=== PATIENT | male | born 1945 | race Hispanic/Latino ===

== ENCOUNTER 2018-01-03 05:32 | Emergency (ER) | payer OTHER ==
--- OUTSIDE RECORDS SUMMARY | 2018-01-03 05:34 | XMS REPORT | Clinical Summary ---
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
--- OUTSIDE RECORDS SUMMARY | 2018-01-03 05:35 | XMS REPORT ---
:1945 Author Organization [facility] Address [address] [place] [address] [address] Care Team Providers Name Role Phone URSULA KELLY Unavailable Unavailable ALEJANDRO MEDINA Unavailable Unavailable Problems This patient has no known problems. Allergies, Adverse Reactions, Alerts This patient has no known allergies or adverse reactions. Medications This patient has no known medications. Results Test Description Test Time Test Comments Text Results Atomic Results Result Comments TISSUE 2016-08-11 Surgical Pathology Report Case: [id number] EXAM 18:34:00 Catalino briones Provider: Ursula Kelly MD Ordering Provider: Ursula Kelly MD Ordering Location: [facility] PERIOPERATIVE Collected: 07/28/2016 0906 SERVICES Pathologist: Janiya Hayes MD Received: 07/28/2016 1137 Specimens: A) - Omentum B ) - Small Bowel, NOS, with right colon and sigmoid colon C) - Rectal, Rectal stump D) - Soft Tissue , Other, Proximal anastomotic colon donut E) - Soft Tissue, Other, Distal anastomotic colon donut. A. OMENTUM, EXCISION: - NEGATIVE FOR MALIGNANCYB. SMALL BOWEL, RIGHT COLON AND SIGMOID COLON, RESECTION: - INVASIVE ADENOCARCINOMA, MODERATELY DIFFERENTIATED, 6 CM IN GREATEST DIMENSION, INVADING THROUGH CECUM WALL INTO TERMINAL ILEUM WALL - SURGICAL RESECTION MARGINS, NEGATIVE FOR TUMOR - METASTATIC ADENOCARCINOMA TO TWO OUT OF TWENTY THREE LYMPH NODES (2/23) - NO LOSS OF NUCLEAR EXPRESSION OF MMR PROTEINS (SEE COMMENT) - MULTIPLE TUBULAR ADENOMAS - AJCC CLASSIFICATION (7TH EDITION) p T4b, N1b, Mx (SEE SYNOPTIC REPORT)C. RECTAL STUMP, EXCISION: - COLONIC MUCOSA, NEGATIVE FOR TUMORD. PROXIMAL ANASTOMOTIC COLON DONUT, EXCISION: - COLONIC MUCOSA, NEGATIVE FOR TUMORE. DISTAL ANASTOMOTIC COLON DONUT, EXCISION: - COLONIC MUCOSA , NEGATIVE FOR TUMOR Signing Pathologist Direct Phone Line: [phone]. The tumor invades through the colonic wall into adjacent small bowel wall. The attached sigmoid colon is not directly invaded by the tumor.IHC testing for all four MMR proteins was performed on selected block B6 with appropriate controls.RESULTSMLH1: Intact nuclear expressionMSH2: Intact nuclear expressionMSH6: Intact nuclear expressionPMS2: Intact nuclear expressionIHC InterpretationNo loss of nuclear expression of MMR proteins : low probability of microsatellite instability-high (MSI-H)# #There are exceptions to the above IHC interpretations. These results should not be considered in isolation, and clinical correlation with genetic counseling is recommended to assess the need for germline testing.Immunohistochemistry disclaimerThe following special studies were performed on this case and the interpretation is incorporated in the diagnostic report above: The immunohistochemistry test was developed and its performance characteristics determined by [facility], Pathology Laboratory. It has not been cleared or approved by the U.S. Food and Drug Administration. The FDA has determined that such clearance or approval is not necessary. The test is used for clinical purposes. It should not be regarded as investigational or for research. This laboratory is certified under the Clinical Laboratory Improvement Amendments of 1988 (CLIA-88) as qualified to perform high complexity clinical laboratory testing.IDC: Radames Cordero M.D.COLON AND RECTUM: Resection, Including Transanal Disk Excision of Rectal NeoplasmsColon ResSPECIMEN Specimen: Terminal ileum Specimen: Cecum Specimen: Ascending colon Specimen: Sigmoid colon Procedure: Right hemicolectomyTUMOR Primary Tumor Site: Cecum Histologic Type: Adenocarcinoma Histologic Grade: Low-grade (well differentiated to moderately differentiated) Tumor Size: Greatest dimension (cm): 6 Additional Dimension (cm): 6 Additional Dimension (cm): 4.5 Tumor Deposits: Not identified Tumor Extent Site(s) of Direct Extent of Tumor: Cecum Microscopic Tumor Extension: Tumor penetrates to the surface of the visceral peritoneum (serosa) AND directly invades adjacent structures (specify): small bowel Macroscopic Tumor Perforation: Not Identified Accessory Tumor Findings Lymph-Vascular Invasion: Present Perineural Invasion: Not identified Treatment Effect (applicable to carcinomas treated with neoadjuvant therapy): No prior treatmentMARGINS Uninvolved Margins: All margins uninvolved by invasive carcinomaLYMPH NODES Number of Lymph Nodes Examined: Specify number: 23 Number of Lymph Nodes Involved: Specify number: 2STAGE (pTNM, AJCC 7th ed.) Primary Tumor (pT): pT4b: Tumor directly invades or is adherent to other organs or structures Regional Lymph Nodes (pN): pN1b: Metastasis in 2 to 3 regional lymph nodes Distant Metastasis (pM): Not applicable - pM cannot be determined from the submitted specimen(s)ADDITIONAL FINDINGS Additional Pathologic Findings: Adenoma(s)41540, 37852, 80585 X 3, 27480 X 4Colon cancerA. Omentum; B. Right colon and sigmoid colon; C. Rectal stump; D. Proximal anastomotic colon donut; E. Distal anastomotic colon donutSpecimen is received in five containers of formalin all labeled with the patient's information.Specimen A labeled "omentum" consists of a segment of omentum measuring 12.5 x 7 x 1 cm. Grossly, no suspicious areas are seen. Facilities Supervisor sections submitted A1 to A4, two sections in each cassette. Specimen B designated "small bowel right colon and sigmoid colon" consists of right hemicolectomy measuring 32 cm in length x 8 cm in circumference with small bowel loop and adhesed upon itself measuring 18 cm in length x 4 cm in circumference and a separate segment of colon with a fat attached to the serosa of the small bowel measuring 7.5 cm in length x 8 cm in circumference. The right colon is opened to reveal a large cecal mass measuring 6 x 6 x 4.5 cm located 27 cm from the distal margin and 20 cm from the proximal margin. Ileocecal valve grossly appears to be involved with lynn hemorrhagic nodular mass measuring 2.5 x 1 x 0.5 cm, located 1.5 cm from the cecal mass. Cross section of cecal mass shows deep invasion into the muscularis propria with invasion through the wall and into the attached terminal ileum. Where it is attached to the small bowel wall is approximately 5 cm from the proximal margin. The attached sigmoid colon is not grossly involved with tumor. Remainder of the right colon has multiple lynn polyps measuring up to 1.2 cm, grossly more than 4 cm from the mass. The appendix cannot be grossly identified. The fat is sectioned yielding 22 lynn-pink lymph nodes, some are grossly positive, the largest measuring up to 1.8 cm. Section code: B1, resection margin en face; B2, mesenteric margin, perpendicular section; B3 and B4, ileocecal valve; B5 and B6, ileum and tumor; B7 and B8, tumor and colon; B9 and B10, tumor with attached soft tissue and fat; B11 through B15, all smaller polyps of right colon bisected in each cassette; B16, margins of separate attached colon; B17, random section of attached colon; B18, one lymph node; B19, one lymph node; B20, one lymph node bisected; B21, one lymph node bisected; B22, four lymph nodes; B23, five lymph nodes; B24, five lymph nodes; B25, four lymph nodes. Specimen C designated "rectal stump" consists of a segment of colon measuring 1.5 cm in length x 3.5 cm in diameter. No distinct abnormalities are seen. Section code: C1 , margin en face; C2 and C3, area of stump.Specimen D labeled "proximal anastomotic colon" consists of a lynn hemorrhagic colon donut measuring 2 x 1.5 x 0.8 cm. The specimen is sectioned, submitted entirely D1. [place] E labeled "distal anastomotic donut" consists of a lynn hemorrhagic colon donut measuring 2 x 1.5 x 0.5 cm. The specimen is sectioned and submitted entirely E. CG/plPerformed. POCT-GLUCOSE METER 2016-08-07 08:00:00 Test Item Value Reference Range Comments POC-GLUCOSE METER (BEAKER) (test 124 mg/dL 70-110 TESTED AT [address] wpam=2797) [facility] [address] POCT-GLUCOSE [id number] 05:48:00 Test Item Value Reference Range Comments POC-GLUCOSE METER ([employer] Consult[employer] GroupAKER) 115 mg/dL 70-110 TESTED AT [address] (test tshq=4583) [facility] [address] [id number] 05:24:00 Test Item Value Reference Range Comments TRIGLYCERIDES (BEAKER) (test jiis=226) 213 mg/dL TRIGLYCERIDE REFERENCE RANGELow Risk <150Borderline Risk 150-199High Risk 200-499Very High Risk>=[id number] 05:24:00 Test Item Value Reference Range Comments MAGNESIUM (BEAKER) (test ixdv=011) 2.0 mg/dL 1.6-2.6 [id number] 05:24:00 Test Item Value Reference Range Comments PHOSPHORUS (BEAKER) (test waki=129) 3.6 mg/dL 2.3-4.7 BASIC METABOLIC [id number] 05:24:00 Test Item Value Reference Range Comments SODIUM (BEAKER) (test 138 meq/L 136-145 hgxu=390) POTASSIUM (BEAKER) (test 3.8 meq/L 3.5-5.1 jybm=142) CHLORIDE (BEAKER) (test 108 meq/L 98-107 opao=863) CO2 (BEAKER) (test 21 meq/L 22-29 ihrz=520) BLOOD UREA NITROGEN 10 mg/dL 7-21 (BEAKER) (test hvxe=602) CREATININE (BEAKER) (test 0.61 mg/dL 0.57-1.25 ykur=137) GLUCOSE RANDOM (BEAKER) 99 mg/dL 70-105 (test ehtr=375) CALCIUM (BEAKER) (test 8.3 mg/dL 8.4-10.2 dpfc=350) EGFR (BEAKER) (test 131 mL/min/1.73 sq m ESTIMATED GFR IS NOT xxci=6059) ACCURATE CREATININE CLEARANCE IN PREDICTING GLOMERULAR FILTRATION RATE. ESTIMATED GFR IS NOT APPLICABLE FOR DIALYSIS PATIENTS. POCT-GLUCOSE [id number] 00:14:00 Test Item Value Reference Range Comments POC-GLUCOSE METER (BEAKER) 107 mg/dL 70-110 TESTED AT [place] [id number] [facility] (test qitn=7798) [facility] [address] POCT-GLUCOSE [id number] 12:03:00 Test Item Value Reference Range Comments POC-GLUCOSE METER (BEAKER) 123 mg/dL 70-110 TESTED AT [address] (test xypa=0671) [facility] [address] POCT-GLUCOSE [id number] 06:52:00 Test Item Value Reference Range Comments POC-GLUCOSE METER (BEAKER) 115 mg/dL 70-110 TESTED AT [address] (test hhsf=3295) [place] [address] [id number] 05:30:00 Test Item Value Reference Range Comments TRIGLYCERIDES (BEAKER) (test sivi=038) 151 mg/dL TRIGLYCERIDE REFERENCE RANGELow Risk <150Borderline Risk 150-199High Risk 200-499Very High Risk>=[id number] 05:30:00 Test Item Value Reference Range Comments MAGNESIUM (BEAKER) (test izxj=841) 1.9 mg/dL 1.6-2.6 [id number] 05:30:00 Test Item Value Reference Range Comments PHOSPHORUS (BEAKER) (test jwwa=796) 3.9 mg/dL 2.3-4.7 BASIC METABOLIC [id number] 05:30:00 Test Item Value Reference Range Comments SODIUM (BEAKER) (test 138 meq/L 136-145 irhx=260) POTASSIUM (BEAKER) (test 4.0 meq/L 3.5-5.1 kkyl=490) CHLORIDE (BEAKER) (test 109 meq/L 98-107 bsws=771) CO2 (BEAKER) (test 22 meq/L 22-29 jjob=508) BLOOD UREA NITROGEN 12 mg/dL 7-21 (BEAKER) (test opis=979) CREATININE (BEAKER) (test 0.55 mg/dL 0.57-1.25 xshd=190) GLUCOSE RANDOM (BEAKER) 105 mg/dL 70-105 (test ufwv=888) CALCIUM (BEAKER) (test 8.0 mg/dL 8.4-10.2 hmbf=066) EGFR (BEAKER) (test 148 mL/min/1.73 sq m ESTIMATED GFR IS NOT shtm=4306) ACCURATE CREATININE CLEARANCE IN PREDICTING GLOMERULAR FILTRATION RATE. ESTIMATED GFR IS NOT APPLICABLE FOR DIALYSIS PATIENTS. POCT-GLUCOSE [id number] 23:20:00 Test Item Value Reference Range Comments POC-GLUCOSE METER (BEAKER) 104 mg/dL 70-110 TESTED AT [address] (test kozx=9649) [place] [address] POCT-GLUCOSE [id number] 17:14:00 Test Item Value Reference Range Comments POC-GLUCOSE METER (BEAKER) 90 mg/dL 70-110 TESTED AT [address] (test izph=4911) [place] [address] POCT-GLUCOSE [id number] 11:54:00 Test Item Value Reference Range Comments POC-GLUCOSE METER (BEAKER) 106 mg/dL 70-[address] [facility] [address] [facility] (test sfvr=9662) [facility] [address] CBC W/PLT COUNT & AUTO [id number] 09:24:00 Test Item Value Reference Range Comments WHITE BLOOD CELL COUNT (BEAKER) (test rkxt=747) 4.6 K/ L 4.0-10.0 RED BLOOD CELL COUNT (BEAKER) (test izws=320) 3.49 M/ L 4.20-5.80 HEMOGLOBIN (BEAKER) (test tjgt=122) 11.7 GM/DL 13.0-16.8 HEMATOCRIT (BEAKER) (test aiuy=949) 35.5 % 40.0-50.0 MEAN CORPUSCULAR VOLUME (BEAKER) (test kaiq=858) 101.0 fL 82.0-98.0 MEAN CORPUSCULAR HEMOGLOBIN (BEAKER) (test 33.5 pg 27.0-33.0 bjyp=077) MEAN CORPUSCULAR HEMOGLOBIN CONC (BEAKER) (test 33.0 GM/DL 32.0-36.0 ugcj=784) RED CELL DISTRIBUTION WIDTH (BEAKER) (test 13.9 % 10.3-14.2 ytqi=072) PLATELET COUNT (BEAKER) (test yuui=844) 203 K/CU MM 150-430 MEAN PLATELET VOLUME (BEAKER) (test blxx=187) 7.3 fL 6.5-10.5 NUCLEATED RED BLOOD CELLS (BEAKER) (test 0 /100 WBC 0-0 rbqf=004) NEUTROPHILS RELATIVE PERCENT (BEAKER) (test 57 % ipfz=979) LYMPHOCYTES RELATIVE PERCENT (BEAKER) (test 28 % nhfy=173) MONOCYTES RELATIVE PERCENT (BEAKER) (test 8 % zmkx=729) EOSINOPHILS RELATIVE PERCENT (BEAKER) (test 7 % lhmi=819) BASOPHILS RELATIVE PERCENT (BEAKER) (test 0 % ygxy=696) NEUTROPHILS ABSOLUTE COUNT (BEAKER) (test 2.60 K/ L 1.80-8.00 siww=700) LYMPHOCYTES ABSOLUTE COUNT (BEAKER) (test 1.27 K/ L 1.48-4.50 qgzj=753) MONOCYTES ABSOLUTE COUNT (BEAKER) (test 0.38 K/ L 0.00-1.30 flrb=657) EOSINOPHILS ABSOLUTE COUNT (BEAKER) (test 0.30 K/ L 0.00-0.50 szip=488) BASOPHILS ABSOLUTE COUNT (BEAKER) (test 0.00 K/ L 0.00-0.20 mndg=539) [id number] 07:12:00 Test Item Value Reference Range Comments TRIGLYCERIDES (BEAKER) (test fchd=241) 108 mg/dL TRIGLYCERIDE REFERENCE RANGELow Risk <150Borderline Risk 150-199High Risk 200-499Very High Risk>=[id number] 07:12:00 Test Item Value Reference Range Comments MAGNESIUM (BEAKER) (test ceyb=776) 2.0 mg/dL 1.6-2.6 [id number] 07:12:00 Test Item Value Reference Range Comments PHOSPHORUS (BEAKER) (test nfwr=191) 3.4 mg/dL 2.3-4.7 BASIC METABOLIC [id number] 07:12:00 Test Item Value Reference Range Comments SODIUM (BEAKER) (test 139 meq/L 136-145 rwyu=507) POTASSIUM (BEAKER) (test 4.1 meq/L 3.5-5.1 umfk=435) CHLORIDE (BEAKER) (test 112 meq/L 98-107 zqic=105) CO2 (BEAKER) (test 19 meq/L 22-29 iusy=370) BLOOD UREA NITROGEN 9 mg/dL 7-21 (BEAKER) (test dyqn=943) CREATININE (BEAKER) (test 0.55 mg/dL 0.57-1.25 yfwt=624) GLUCOSE RANDOM (BEAKER) 105 mg/dL 70-105 (test beqz=555) CALCIUM (BEAKER) (test 7.9 mg/dL 8.4-10.2 hjpi=502) EGFR (BEAKER) (test 148 mL/min/1.73 sq m ESTIMATED GFR IS NOT lsmj=8355) ACCURATE CREATININE CLEARANCE IN PREDICTING GLOMERULAR FILTRATION RATE. ESTIMATED GFR IS NOT APPLICABLE FOR DIALYSIS PATIENTS. POCT-GLUCOSE [id number] 05:45:00 Test Item Value Reference Range Comments POC-GLUCOSE METER (BEAKER) 115 mg/dL 70-110 TESTED AT [address] (test pxar=4231) [facility] [address] POCT-GLUCOSE [id number] 23:28:00 Test Item Value Reference Range Comments POC-GLUCOSE METER (BEAKER) 124 mg/dL 70-110 TESTED AT [address] (test gjcs=6122) [facility] [address] POCT-GLUCOSE [id number] 16:34:00 Test Item Value Reference Range Comments POC-GLUCOSE METER (BEAKER) 127 mg/dL 70-110 TESTED AT [address] (test uwzk=4047) [facility] [address] POCT-GLUCOSE [id number] 11:04:00 Test Item Value Reference Range Comments POC-GLUCOSE METER (BEAKER) 146 mg/dL 70-110 TESTED AT [address] (test hgpq=8666) [facility] [address] POCT-GLUCOSE [id number] 05:28:00 Test Item Value Reference Range Comments POC-GLUCOSE METER (BEAKER) 130 mg/dL 70-110 TESTED AT [address] (test cecg=2137) [facility] [address] BASIC METABOLIC [id number] 04:56:00 Test Item Value Reference Range Comments SODIUM (BEAKER) (test 138 meq/L 136-145 ovrn=752) POTASSIUM (BEAKER) (test 3.7 meq/L 3.5-5.1 zngh=485) CHLORIDE (BEAKER) (test 110 meq/L 98-107 ljkf=823) CO2 (BEAKER) (test 18 meq/L 22-29 gxtd=644) BLOOD UREA NITROGEN 6 mg/dL 7-21 (BEAKER) (test hpfk=007) CREATININE (BEAKER) (test 0.58 mg/dL 0.57-1.25 ewah=354) GLUCOSE RANDOM (BEAKER) 116 mg/dL 70-105 (test arnm=730) CALCIUM (BEAKER) (test 7.5 mg/dL 8.4-10.2 atwh=488) EGFR (BEAKER) (test 139 mL/min/1.73 sq m ESTIMATED GFR IS NOT kpku=4694) ACCURATE CREATININE CLEARANCE IN PREDICTING GLOMERULAR FILTRATION RATE. ESTIMATED GFR IS NOT APPLICABLE FOR DIALYSIS PATIENTS. [id number] 04:52:00 Test Item Value Reference Range Comments TRIGLYCERIDES (BEAKER) (test rivj=520) 98 mg/dL TRIGLYCERIDE REFERENCE RANGELow Risk <150Borderline Risk 150-199High Risk 200-499Very High Risk>=[id number] 04:52:00 Test Item Value Reference Range Comments MAGNESIUM (BEAKER) (test kzsp=335) 1.9 mg/dL 1.6-2.6 [id number] 04:52:00 Test Item Value Reference Range Comments PHOSPHORUS (BEAKER) (test mzeq=046) 3.0 mg/dL 2.3-4.7 CBC W/PLT COUNT & AUTO [id number] 04:44:00 Test Item Value Reference Range Comments WHITE BLOOD CELL COUNT (BEAKER) (test udqa=669) 4.0 K/ L 4.0-10.0 RED BLOOD CELL COUNT (BEAKER) (test gzdd=416) 3.33 M/ L 4.20-5.80 HEMOGLOBIN (BEAKER) (test qsua=491) 11.3 GM/DL 13.0-16.8 HEMATOCRIT (BEAKER) (test swae=593) 33.8 % 40.0-50.0 MEAN CORPUSCULAR VOLUME (BEAKER) (test dzdc=628) 102.0 fL 82.0-98.0 MEAN CORPUSCULAR HEMOGLOBIN (BEAKER) (test 34.0 pg 27.0-33.0 mdoe=943) MEAN CORPUSCULAR HEMOGLOBIN CONC (BEAKER) (test 33.5 GM/DL 32.0-36.0 npzs=388) RED CELL DISTRIBUTION WIDTH (BEAKER) (test 14.7 % 10.3-14.2 yzfy=641) PLATELET COUNT (BEAKER) (test yltk=395) 215 K/CU MM 150-430 MEAN PLATELET VOLUME (BEAKER) (test lfef=399) 6.9 fL 6.5-10.5 NUCLEATED RED BLOOD CELLS (BEAKER) (test 0 /100 WBC 0-0 bqvj=356) NEUTROPHILS RELATIVE PERCENT (BEAKER) (test 65 % krkd=618) LYMPHOCYTES RELATIVE PERCENT (BEAKER) (test 21 % dhjp=139) MONOCYTES RELATIVE PERCENT (BEAKER) (test 10 % ipqa=626) EOSINOPHILS RELATIVE PERCENT (BEAKER) (test 4 % vorq=779) BASOPHILS RELATIVE PERCENT (BEAKER) (test 0 % ecxw=295) NEUTROPHILS ABSOLUTE COUNT (BEAKER) (test 2.56 K/ L 1.80-8.00 txuf=324) LYMPHOCYTES ABSOLUTE COUNT (BEAKER) (test 0.85 K/ L 1.48-4.50 mlqt=058) MONOCYTES ABSOLUTE COUNT (BEAKER) (test 0.39 K/ L 0.00-1.30 lhck=480) EOSINOPHILS ABSOLUTE COUNT (BEAKER) (test 0.14 K/ L 0.00-0.50 fyhm=144) BASOPHILS ABSOLUTE COUNT (BEAKER) (test 0.02 K/ L 0.00-0.20 lmqa=254) 0.00POCT-GLUCOSE [id number] 23:43:00 Test Item Value Reference Range Comments POC-GLUCOSE METER (BEAKER) 156 mg/dL 70-[address] [facility] [address] [facility] (test yvlo=4955) [facility] [address] CBC W/PLT COUNT & AUTO [id number] 08:12:00 Test Item Value Reference Range Comments WHITE BLOOD CELL COUNT (BEAKER) (test ihps=949) 3.6 K/ L 4.0-10.0 RED BLOOD CELL COUNT (BEAKER) (test wlbb=221) 3.62 M/ L 4.20-5.80 HEMOGLOBIN (BEAKER) (test uvlj=885) 11.9 GM/DL 13.0-16.8 HEMATOCRIT (BEAKER) (test rhbi=802) 36.0 % 40.0-50.0 MEAN CORPUSCULAR VOLUME (BEAKER) (test nqrp=335) 99.4 fL 82.0-98.0 MEAN CORPUSCULAR HEMOGLOBIN (BEAKER) (test 32.9 pg 27.0-33.0 tvps=926) MEAN CORPUSCULAR HEMOGLOBIN CONC (BEAKER) (test 33.1 GM/DL 32.0-36.0 murb=477) RED CELL DISTRIBUTION WIDTH (BEAKER) (test 13.5 % 10.3-14.2 enwr=393) PLATELET COUNT (BEAKER) (test uzvb=529) 241 K/CU MM 150-430 MEAN PLATELET VOLUME (BEAKER) (test qgaz=095) 6.9 fL 6.5-10.5 NUCLEATED RED BLOOD CELLS (BEAKER) (test 0 /100 WBC 0-0 bwfo=079) NEUTROPHILS RELATIVE PERCENT (BEAKER) (test 64 % wtmx=381) LYMPHOCYTES RELATIVE PERCENT (BEAKER) (test 22 % gafm=490) MONOCYTES RELATIVE PERCENT (BEAKER) (test 11 % ffpf=785) EOSINOPHILS RELATIVE PERCENT (BEAKER) (test 3 % olyx=923) BASOPHILS RELATIVE PERCENT (BEAKER) (test 1 % kqph=469) NEUTROPHILS ABSOLUTE COUNT (BEAKER) (test 2.29 K/ L 1.80-8.00 cnqq=341) LYMPHOCYTES ABSOLUTE COUNT (BEAKER) (test 0.80 K/ L 1.48-4.50 wuqc=947) MONOCYTES ABSOLUTE COUNT (BEAKER) (test 0.38 K/ L 0.00-1.30 iovv=692) EOSINOPHILS ABSOLUTE COUNT (BEAKER) (test 0.10 K/ L 0.00-0.50 iciy=493) BASOPHILS ABSOLUTE COUNT (BEAKER) (test 0.02 K/ L 0.00-0.20 duhm=892) 0.00BASIC METABOLIC [id number] 06:57:00 Test Item Value Reference Range Comments SODIUM (BEAKER) (test 135 meq/L 136-145 yueq=015) POTASSIUM (BEAKER) (test 3.9 meq/L 3.5-5.1 qain=116) CHLORIDE (BEAKER) (test 109 meq/L 98-107 wjpe=506) CO2 (BEAKER) (test 19 meq/L 22-29 jjqs=818) BLOOD UREA NITROGEN 4 mg/dL 7-21 (BEAKER) (test pggy=242) CREATININE (BEAKER) (test 0.59 mg/dL 0.57-1.25 beuh=411) GLUCOSE RANDOM (BEAKER) 114 mg/dL 70-105 (test oyrw=433) CALCIUM (BEAKER) (test 7.6 mg/dL 8.4-10.2 xqmz=398) EGFR (BEAKER) (test 137 mL/min/1.73 sq m ESTIMATED GFR IS NOT rumj=0351) ACCURATE CREATININE CLEARANCE IN PREDICTING GLOMERULAR FILTRATION RATE. ESTIMATED GFR IS NOT APPLICABLE FOR DIALYSIS PATIENTS. [id number] 06:53:00 Test Item Value Reference Range Comments PHOSPHORUS (BEAKER) (test cwig=170) 2.5 mg/dL 2.3-4.7 [id number] 06:53:00 Test Item Value Reference Range Comments MAGNESIUM (BEAKER) (test dusc=000) 1.8 mg/dL 1.6-2.6 [id number] 06:12:00 Test Item Value Reference Range Comments PHOSPHORUS (BEAKER) (test bnmv=706) 2.6 mg/dL 2.3-4.7 [id number] 06:12:00 Test Item Value Reference Range Comments MAGNESIUM (BEAKER) (test uhwy=652) 1.8 mg/dL 1.6-2.6 BASIC METABOLIC [id number] 04:05:00 Test Item Value Reference Range Comments SODIUM (BEAKER) (test 139 meq/L 136-145 zpba=183) POTASSIUM (BEAKER) (test 4.0 meq/L 3.5-5.1 eqjm=113) CHLORIDE (BEAKER) (test 111 meq/L 98-107 zdut=381) CO2 (BEAKER) (test 22 meq/L 22-29 zkwe=022) BLOOD UREA NITROGEN 6 mg/dL 7-21 (BEAKER) (test qfly=399) CREATININE (BEAKER) (test 0.62 mg/dL 0.57-1.25 cpbw=737) GLUCOSE RANDOM (BEAKER) 120 mg/dL 70-105 (test atfd=161) CALCIUM (BEAKER) (test 7.9 mg/dL 8.4-10.2 yoww=492) EGFR (BEAKER) (test 129 mL/min/1.73 sq m ESTIMATED GFR IS NOT grqt=8206) ACCURATE CREATININE CLEARANCE IN PREDICTING GLOMERULAR FILTRATION RATE. ESTIMATED GFR IS NOT APPLICABLE FOR DIALYSIS PATIENTS. POCT-GLUCOSE [id number] 18:23:00 Test Item Value Reference Range Comments POC-GLUCOSE METER (BEAKER) 138 mg/dL 70-[address] [facility] [address] [facility] (test jyln=4217) [facility] [address] [id number] 05:27:00 Test Item Value Reference Range Comments PHOSPHORUS (BEAKER) (test ehzi=316) 2.8 mg/dL 2.3-4.7 [id number] 05:27:00 Test Item Value Reference Range Comments MAGNESIUM (BEAKER) (test bzac=273) 1.9 mg/dL 1.6-2.6 BASIC METABOLIC [id number] 05:27:00 Test Item Value Reference Range Comments SODIUM (BEAKER) (test 139 meq/L 136-145 kjxr=860) POTASSIUM (BEAKER) (test 3.8 meq/L 3.5-5.1 bikr=086) CHLORIDE (BEAKER) (test 107 meq/L 98-107 yliy=311) CO2 (BEAKER) (test 22 meq/L 22-29 afmq=610) BLOOD UREA NITROGEN 3 mg/dL 7-21 (BEAKER) (test vmjb=326) CREATININE (BEAKER) (test 0.61 mg/dL 0.57-1.25 ueas=353) GLUCOSE RANDOM (BEAKER) 99 mg/dL 70-105 (test qofd=015) CALCIUM (BEAKER) (test 8.6 mg/dL 8.4-10.2 byty=138) EGFR (BEAKER) (test 131 mL/min/1.73 sq m ESTIMATED GFR IS NOT oyqa=9863) ACCURATE CREATININE CLEARANCE IN PREDICTING GLOMERULAR FILTRATION RATE. ESTIMATED GFR IS NOT APPLICABLE FOR DIALYSIS PATIENTS. [id number] 05:37:00 Test Item Value Reference Range Comments PHOSPHORUS (BEAKER) (test jofd=902) 2.2 mg/dL 2.3-4.7 [id number] 05:37:00 Test Item Value Reference Range Comments MAGNESIUM (BEAKER) (test boqz=163) 2.1 mg/dL 1.6-2.6 BASIC METABOLIC [id number] 05:37:00 Test Item Value Reference Range Comments SODIUM (BEAKER) (test 143 meq/L 136-145 dpiv=589) POTASSIUM (BEAKER) (test 3.6 meq/L 3.5-5.1 wqud=213) CHLORIDE (BEAKER) (test 111 meq/L 98-107 vzpi=058) CO2 (BEAKER) (test 22 meq/L 22-29 bqsd=232) BLOOD UREA NITROGEN 4 mg/dL 7-21 (BEAKER) (test kvmf=126) CREATININE (BEAKER) (test 0.68 mg/dL 0.57-1.25 nshg=337) GLUCOSE RANDOM (BEAKER) 108 mg/dL 70-105 (test snyh=912) CALCIUM (BEAKER) (test 8.8 mg/dL 8.4-10.2 slfs=094) EGFR (BEAKER) (test 116 mL/min/1.73 sq m ESTIMATED GFR IS NOT hugx=0128) ACCURATE CREATININE CLEARANCE IN PREDICTING GLOMERULAR FILTRATION RATE. ESTIMATED GFR IS NOT APPLICABLE FOR DIALYSIS PATIENTS. CBC (HEMOGRAM ONLY)2016-07-30 05:36:00 Test Item Value Reference Range Comments WHITE BLOOD CELL COUNT (BEAKER) (test tatp=192) 9.6 K/ L 4.0-10.0 RED BLOOD CELL COUNT (BEAKER) (test osfw=723) 3.94 M/ L 4.20-5.80 HEMOGLOBIN (BEAKER) (test qpja=725) 12.9 GM/DL 13.0-16.8 HEMATOCRIT (BEAKER) (test yczp=839) 39.4 % 40.0-50.0 MEAN CORPUSCULAR VOLUME (BEAKER) (test qlzw=687) 100.0 fL 82.0-98.0 MEAN CORPUSCULAR HEMOGLOBIN (BEAKER) (test 32.7 pg 27.0-33.0 bwkm=844) MEAN CORPUSCULAR HEMOGLOBIN CONC (BEAKER) (test 32.7 GM/DL 32.0-36.0 drxg=592) RED CELL DISTRIBUTION WIDTH (BEAKER) (test 13.9 % 10.3-14.2 zdnn=601) PLATELET COUNT (BEAKER) (test ffvc=543) 303 K/CU MM 150-430 MEAN PLATELET VOLUME (BEAKER) (test xcvx=222) 7.1 fL 6.5-10.5 NUCLEATED RED BLOOD CELLS (BEAKER) (test 0 /100 WBC 0-0 uqpf=313) 0.00CBC (HEMOGRAM ONLY)2016-07-29 07:39:00 Test Item Value Reference Range Comments WHITE BLOOD CELL COUNT (BEAKER) (test dlly=880) 10.1 K/ L 4.0-10.0 RED BLOOD CELL COUNT (BEAKER) (test mrxy=431) 3.67 M/ L 4.20-5.80 HEMOGLOBIN (BEAKER) (test cczs=136) 12.3 GM/DL 13.0-16.8 HEMATOCRIT (BEAKER) (test oiwp=379) 36.7 % 40.0-50.0 MEAN CORPUSCULAR VOLUME (BEAKER) (test ncfm=219) 100.0 fL 82.0-98.0 MEAN CORPUSCULAR HEMOGLOBIN (BEAKER) (test 33.7 pg 27.0-33.0 kdzm=314) MEAN CORPUSCULAR HEMOGLOBIN CONC (BEAKER) (test 33.6 GM/DL 32.0-36.0 equb=272) RED CELL DISTRIBUTION WIDTH (BEAKER) (test 13.5 % 10.3-14.2 ajlu=003) PLATELET COUNT (BEAKER) (test mxle=651) 251 K/CU MM 150-430 MEAN PLATELET VOLUME (BEAKER) (test pqva=512) 7.2 fL 6.5-10.5 NUCLEATED RED BLOOD CELLS (BEAKER) (test 0 /100 WBC 0-0 miyq=698) 0.00POCT-GLUCOSE [id number] 06:32:00 Test Item Value Reference Range Comments POC-GLUCOSE METER (BEAKER) 126 mg/dL 70-[address] [facility] [address] [facility] (test jihb=6574) [facility] [address] [id number] 06:01:00 Test Item Value Reference Range Comments PHOSPHORUS (BEAKER) (test byfd=515) 3.2 mg/dL 2.3-4.7 [id number] 06:01:00 Test Item Value Reference Range Comments MAGNESIUM (BEAKER) (test ncyj=083) 1.8 mg/dL 1.6-2.6 BASIC METABOLIC [id number] 06:01:00 Test Item Value Reference Range Comments SODIUM (BEAKER) (test 140 meq/L 136-145 fqzj=420) POTASSIUM (BEAKER) (test 4.2 meq/L 3.5-5.1 oaym=603) CHLORIDE (BEAKER) (test 111 meq/L 98-107 cjvv=289) CO2 (BEAKER) (test 18 meq/L 22-29 dmla=421) BLOOD UREA NITROGEN 5 mg/dL 7-21 (BEAKER) (test srdn=007) CREATININE (BEAKER) (test 0.72 mg/dL 0.57-1.25 wgoc=726) GLUCOSE RANDOM (BEAKER) 119 mg/dL 70-105 (test afpu=544) CALCIUM (BEAKER) (test 8.3 mg/dL 8.4-10.2 xsen=153) EGFR (BEAKER) (test 109 mL/min/1.73 sq m ESTIMATED GFR IS NOT murx=9690) ACCURATE CREATININE CLEARANCE IN PREDICTING GLOMERULAR FILTRATION RATE. ESTIMATED GFR IS NOT APPLICABLE FOR DIALYSIS PATIENTS. POCT-GLUCOSE [id number] 00:44:00 Test Item Value Reference Range Comments POC-GLUCOSE METER (BEAKER) 125 mg/dL 70-[address] [facility] [address] [facility] (test kdjl=1211) [facility] [address] BASIC METABOLIC [id number] 14:33:00 Test Item Value Reference Range Comments SODIUM (BEAKER) (test 140 meq/L 136-145 emht=889) POTASSIUM (BEAKER) (test 4.7 meq/L 3.5-5.1 cfau=969) CHLORIDE (BEAKER) (test 115 meq/L 98-107 jnba=738) CO2 (BEAKER) (test 18 meq/L 22-29 wcbe=866) BLOOD UREA NITROGEN 5 mg/dL 7-21 (BEAKER) (test vgeg=908) CREATININE (BEAKER) (test 0.97 mg/dL 0.57-1.25 fyqa=767) GLUCOSE RANDOM (BEAKER) 129 mg/dL 70-105 (test idaq=942) CALCIUM (BEAKER) (test 7.4 mg/dL 8.4-10.2 ajwj=964) EGFR (BEAKER) (test 77 mL/min/1.73 sq m ESTIMATED GFR IS NOT bskp=8301) ACCURATE CREATININE CLEARANCE IN PREDICTING GLOMERULAR FILTRATION RATE. ESTIMATED GFR IS NOT APPLICABLE FOR DIALYSIS PATIENTS. CBC (HEMOGRAM ONLY)2016-07-28 14:20:00 Test Item Value Reference Range Comments WHITE BLOOD CELL COUNT (BEAKER) (test oipi=130) 7.7 K/ L 4.0-10.0 RED BLOOD CELL COUNT (BEAKER) (test wwhi=957) 3.34 M/ L 4.20-5.80 HEMOGLOBIN (BEAKER) (test xnco=319) 11.4 GM/DL 13.0-16.8 HEMATOCRIT (BEAKER) (test gzle=174) 33.5 % 40.0-50.0 MEAN CORPUSCULAR VOLUME (BEAKER) (test neuv=735) 100.0 fL 82.0-98.0 MEAN CORPUSCULAR HEMOGLOBIN (BEAKER) (test 34.1 pg 27.0-33.0 waln=372) MEAN CORPUSCULAR HEMOGLOBIN CONC (BEAKER) (test 33.9 GM/DL 32.0-36.0 niyq=810) RED CELL DISTRIBUTION WIDTH (BEAKER) (test 13.4 % 10.3-14.2 jyjj=602) PLATELET COUNT (BEAKER) (test aybj=311) 208 K/CU MM 150-430 MEAN PLATELET VOLUME (BEAKER) (test kdzq=134) 6.7 fL 6.5-10.5 NUCLEATED RED BLOOD CELLS (BEAKER) (test 0 /100 WBC 0-0 rsed=997) 0.00CALCIUM, [id number] 11:42:00 Test Item Value Reference Range Comments CALCIUM IONIZED (BEAKER) (test hzua=564) 1.02 mmol/L 1.12-1.27 PH, BLOOD (BEAKER) (test xvnm=6748) 7.30 BLOOD GAS, [id number] 11:41:00 Test Item Value Reference Range Comments PH ARTERIAL (BEAKER) (test ixcl=064) 7.30 7.35-7.45 PCO2 ARTERIAL (BEAKER) (test kyev=256) 38 mmHg 35-45 PO2 ARTERIAL (BEAKER) (test rxmo=480) 138 mmHg 80-90 O2 SATURATION ARTERIAL (BEAKER) (test hecr=342) 98.7 % 96.0-97.0 HCO3 ARTERIAL (BEAKER) (test tvio=583) 19 mmol/L 21-29 BASE EXCESS ARTERIAL (BEAKER) (test mwqh=449) -7.6 mmol/L -2.0-3.0 PATIENT TEMPERATURE (BEAKER) (test yfjk=8104) 35.0 C FIO2 (BEAKER) (test lykj=0881) 50.0 % GLUCOSE-STAT [id number] 11:41:00 Test Item Value Reference Range Comments GLUCOSE RANDOM (BEAKER) (test wgzk=949) 127 mg/dL 70-110 HEMOGLOBIN-STAT [id number] 11:41:00 Test Item Value Reference Range Comments HEMOGLOBIN (BEAKER) (test zfgz=900) 10.8 g/dL 13.0-16.8 HEMATOCRIT-STAT [id number] 11:41:00 Test Item Value Reference Range Comments HEMATOCRIT (BEAKER) (test otxv=811) 32.0 % 40.0-50.0 SODIUM NA-STAT [id number] 11:40:00 Test Item Value Reference Range Comments SODIUM (BEAKER) (test bzdh=041) 139 meq/L 135-148 POTASSIUM-STAT [id number] 11:40:00 Test Item Value Reference Range Comments POTASSIUM (BEAKER) (test dnas=977) 3.8 meq/L 3.6-5.5 CALCIUM, [id number] 09:40:00 Test Item Value Reference Range Comments CALCIUM IONIZED (BEAKER) (test gdyj=630) 1.03 mmol/L 1.12-1.27 PH, BLOOD (BEAKER) (test epgk=8508) 7.29 SODIUM NA-STAT [id number] 09:31:00 Test Item Value Reference Range Comments SODIUM (BEAKER) (test qclt=051) 139 meq/L 135-148 BLOOD GAS, [id number] 09:31:00 Test Item Value Reference Range Comments PH ARTERIAL (BEAKER) (test srva=752) 7.29 7.35-7.45 PCO2 ARTERIAL (BEAKER) (test irzm=316) 41 mmHg 35-45 PO2 ARTERIAL (BEAKER) (test mlmq=332) 333 mmHg 80-90 O2 SATURATION ARTERIAL (BEAKER) (test twrm=848) 99.7 % 96.0-97.0 HCO3 ARTERIAL (BEAKER) (test xifc=680) 19 mmol/L 21-29 BASE EXCESS ARTERIAL (BEAKER) (test zbjl=793) -6.9 mmol/L -2.0-3.0 PATIENT TEMPERATURE (BEAKER) (test dlqk=3399) 37.0 C FIO2 (BEAKER) (test vrap=2631) 21.0 % GLUCOSE-STAT [id number] 09:31:00 Test Item Value Reference Range Comments GLUCOSE RANDOM (BEAKER) (test otzy=952) 188 mg/dL 70-110 POTASSIUM-STAT [id number] 09:31:00 Test Item Value Reference Range Comments POTASSIUM (BEAKER) (test sivr=583) 2.8 meq/L 3.6-5.5 HGB/HCT (H&H) - STAT [id number] 09:31:00 Test Item Value Reference Range Comments HEMOGLOBIN (BEAKER) (test bosi=438) 13.0 g/dL 13.0-16.8 HEMATOCRIT (BEAKER) (test vgba=261) 38.0 % 40.0-50.0 [id number] 13:18:00 Test Item Value Reference Range Comments SODIUM (BEAKER) (test dbgq=774) 142 meq/L 136-145 POTASSIUM (BEAKER) (test wztn=292) 4.1 meq/L 3.5-5.1 CHLORIDE (BEAKER) (test wjxs=187) 107 meq/L 98-107 CO2 (BEAKER) (test gwza=249) 26 meq/L 22-29 BUN AND [id number] 13:04:00 Test Item Value Reference Range Comments BLOOD UREA NITROGEN 6 mg/dL 7-21 (BEAKER) (test vqvx=660) CREATININE (BEAKER) (test 0.74 mg/dL 0.57-1.25 zkvn=188) EGFR (BEAKER) (test 105 mL/min/1.73 sq m ESTIMATED GFR IS NOT tahg=2613) ACCURATE CREATININE CLEARANCE IN PREDICTING GLOMERULAR FILTRATION RATE. ESTIMATED GFR IS NOT APPLICABLE FOR DIALYSIS PATIENTS. [id number] 12:55:00 Test Item Value Reference Range Comments HEMOGLOBIN (BEAKER) (test oeog=615) 14.9 GM/DL 13.0-16.8 PLATELET [id number] 12:55:00 Test Item Value Reference Range Comments PLATELET COUNT (BEAKER) (test gaap=307) 269 K/CU MM 150-430 CARCINOEMBRYONIC ANTIGEN (CEA)2016-07-01 13:05:00 Test Item Value Reference Range Comments CARCINOEMBRYONIC ANTIGEN (BEAKER) (test rsgn=071) 6.7 ng/mL 0.0-5.0 BASIC METABOLIC [id number] 05:12:00 Test Item Value Reference Range Comments SODIUM (BEAKER) (test 143 meq/L 136-145 zuyf=596) POTASSIUM (BEAKER) (test 3.6 meq/L 3.5-5.1 Specimen slightly npfe=179) hemolyzed CHLORIDE (BEAKER) (test 115 meq/L 98-107 nrpt=936) CO2 (BEAKER) (test 19 meq/L 22-29 raft=750) BLOOD UREA NITROGEN 5 mg/dL 7-21 (BEAKER) (test msvy=863) CREATININE (BEAKER) (test 0.60 mg/dL 0.57-1.25 Specimen slightly sdox=643) hemolyzed GLUCOSE RANDOM (BEAKER) 89 mg/dL 70-105 (test gehs=592) CALCIUM (BEAKER) (test 8.1 mg/dL 8.4-10.2 mxck=097) EGFR (BEAKER) (test 134 mL/min/1.73 sq m ESTIMATED GFR IS NOT tilc=1723) ACCURATE CREATININE CLEARANCE IN PREDICTING GLOMERULAR FILTRATION RATE. ESTIMATED GFR IS NOT APPLICABLE FOR DIALYSIS PATIENTS. HEPATIC FUNCTION [id number] 05:12:00 Test Item Value Reference Range Comments TOTAL PROTEIN (BEAKER) (test 5.8 gm/dL 6.0-8.3 Specimen slightly hemolyzed obho=648) ALBUMIN (BEAKER) (test 3.0 g/dL 3.5-5.0 Specimen slightly hemolyzed mqwn=3203) BILIRUBIN TOTAL (BEAKER) (test 0.4 mg/dL 0.2-1.2 Specimen slightly hemolyzed dcfs=349) BILIRUBIN DIRECT (BEAKER) (test 0.2 mg/dL 0.1-0.5 Specimen slightly hemolyzed kxjq=773) ALKALINE PHOSPHATASE (BEAKER) 233 U/L 40-150 (test jodq=834) AST (SGOT) (BEAKER) (test 52 U/L 5-34 Specimen slightly hemolyzed vbkn=852) ALT (SGPT) (BEAKER) (test 33 U/L 6-55 Specimen slightly hemolyzed cfsx=573) CBC W/PLT COUNT & AUTO [id number] 06:06:00 Test Item Value Reference Range Comments WHITE BLOOD CELL COUNT (BEAKER) (test zbyz=683) 4.2 K/ L 4.0-10.0 RED BLOOD CELL COUNT (BEAKER) (test yonc=544) 4.02 M/ L 4.20-5.80 HEMOGLOBIN (BEAKER) (test tvhk=503) 13.3 GM/DL 13.0-16.8 HEMATOCRIT (BEAKER) (test useo=969) 39.1 % 40.0-50.0 MEAN CORPUSCULAR VOLUME (BEAKER) (test umso=381) 97.2 fL 82.0-98.0 MEAN CORPUSCULAR HEMOGLOBIN (BEAKER) (test 33.0 pg 27.0-33.0 ehfj=680) MEAN CORPUSCULAR HEMOGLOBIN CONC (BEAKER) (test 34.0 GM/DL 32.0-36.0 qnfu=954) RED CELL DISTRIBUTION WIDTH (BEAKER) (test 13.9 % 10.3-14.2 rvut=926) PLATELET COUNT (BEAKER) (test giyl=885) 215 K/CU MM 150-430 MEAN PLATELET VOLUME (BEAKER) (test fgsc=383) 8.0 fL 6.5-10.5 NUCLEATED RED BLOOD CELLS (BEAKER) (test 0 /100 WBC 0-0 fxvo=266) NEUTROPHILS RELATIVE PERCENT (BEAKER) (test 48 % adif=204) LYMPHOCYTES RELATIVE PERCENT (BEAKER) (test 41 % ajtk=882) MONOCYTES RELATIVE PERCENT (BEAKER) (test 9 % rgrz=480) EOSINOPHILS RELATIVE PERCENT (BEAKER) (test 1 % jvqc=324) BASOPHILS RELATIVE PERCENT (BEAKER) (test 0 % toux=904) NEUTROPHILS ABSOLUTE COUNT (BEAKER) (test 2.04 K/ L 1.80-8.00 qnqa=186) LYMPHOCYTES ABSOLUTE COUNT (BEAKER) (test 1.75 K/ L 1.48-4.50 vxbe=694) MONOCYTES ABSOLUTE COUNT (BEAKER) (test 0.37 K/ L 0.00-1.30 cjls=140) EOSINOPHILS ABSOLUTE COUNT (BEAKER) (test 0.05 K/ L 0.00-0.50 gwvc=327) BASOPHILS ABSOLUTE COUNT (BEAKER) (test 0.01 K/ L 0.00-0.20 oubf=337) 0.00HEPATIC FUNCTION [id number] 05:37:00 Test Item Value Reference Range Comments TOTAL PROTEIN (BEAKER) (test kcbo=665) 5.8 gm/dL 6.0-8.3 ALBUMIN (BEAKER) (test fqle=2614) 3.1 g/dL 3.5-5.0 BILIRUBIN TOTAL (BEAKER) (test smdl=841) 0.4 mg/dL 0.2-1.2 BILIRUBIN DIRECT (BEAKER) (test lowy=455) 0.2 mg/dL 0.1-0.5 ALKALINE PHOSPHATASE (BEAKER) (test smpi=445) 242 U/L 40-150 AST (SGOT) (BEAKER) (test rzgw=229) 40 U/L 5-34 ALT (SGPT) (BEAKER) (test vwpw=622) 24 U/L 6-55 BASIC METABOLIC [id number] 05:37:00 Test Item Value Reference Range Comments SODIUM (BEAKER) (test 145 meq/L 136-145 kkjm=592) POTASSIUM (BEAKER) (test 3.6 meq/L 3.5-5.1 nhst=982) CHLORIDE (BEAKER) (test 117 meq/L 98-107 qyxz=993) CO2 (BEAKER) (test 18 meq/L 22-29 nttu=574) BLOOD UREA NITROGEN 3 mg/dL 7-21 (BEAKER) (test qrsi=169) CREATININE (BEAKER) (test 0.62 mg/dL 0.57-1.25 hizn=734) GLUCOSE RANDOM (BEAKER) 89 mg/dL 70-105 (test xdff=968) CALCIUM (BEAKER) (test 8.3 mg/dL 8.4-10.2 ftby=911) EGFR (BEAKER) (test 129 mL/min/1.73 sq m ESTIMATED GFR IS NOT mwwq=5761) ACCURATE CREATININE CLEARANCE IN PREDICTING GLOMERULAR FILTRATION RATE. ESTIMATED GFR IS NOT APPLICABLE FOR DIALYSIS PATIENTS. PROTHROMBIN [id number] 05:08:00 Test Item Value Reference Range Comments PROTIME (BEAKER) (test tomf=759) 14.3 seconds 11.7-14.7 INR (BEAKER) (test lxjy=666) 1.1 <=5.9 RECOMMENDED COUMADIN/WARFARIN INR THERAPY RANGESSTANDARD DOSE: 2.0 - 3.0 Includes: PROPHYLAXIS forvenous thrombosis, systemic embolization; TREATMENT for venous thrombosis and/or pulmonary embolus.HIGH RISK: Target INR is 2.5-3.5 for patients with mechanical heart valves.[id number] 22:22:00 Test Item Value Reference Range Comments MAGNESIUM (BEAKER) (test iwyo=618) 1.9 mg/dL 1.6-2.6 BASIC METABOLIC [id number] 22:21:00 Test Item Value Reference Range Comments SODIUM (BEAKER) (test 142 meq/L 136-145 rjwi=624) POTASSIUM (BEAKER) (test 3.7 meq/L 3.5-5.1 zoeg=433) CHLORIDE (BEAKER) (test 115 meq/L 98-107 cniy=977) CO2 (BEAKER) (test 17 meq/L 22-29 hvsf=688) BLOOD UREA NITROGEN 3 mg/dL 7-21 (BEAKER) (test tauz=047) CREATININE (BEAKER) (test 0.65 mg/dL 0.57-1.25 njin=445) GLUCOSE RANDOM (BEAKER) 99 mg/dL 70-105 (test mbqd=492) CALCIUM (BEAKER) (test 8.6 mg/dL 8.4-10.2 npyp=520) EGFR (BEAKER) (test 122 mL/min/1.73 sq m ESTIMATED GFR IS NOT brcg=8955) ACCURATE CREATININE CLEARANCE IN PREDICTING GLOMERULAR FILTRATION RATE. ESTIMATED GFR IS NOT APPLICABLE FOR DIALYSIS PATIENTS. POCT-GLUCOSE [id number] 12:33:00 Test Item Value Reference Range Comments POC-GLUCOSE METER (BEAKER) 101 mg/dL 70-110 TESTED AT [address] (test dtgw=2465) [facility] [address] POCT-GLUCOSE [id number] 08:42:00 Test Item Value Reference Range Comments POC-GLUCOSE METER (BEAKER) 97 mg/dL 70-110 TESTED AT [address] (test shml=4658) [facility] [address] [id number] 06:55:00 Test Item Value Reference Range Comments FERRITIN (BEAKER) (test mkpk=836) 129 ng/mL 5-275 Effective 03/20/2014: Reference Range ChangeNew: Male 5-275 Previous: Male 22-322 Female 5-275 Female 10-291IRON, TIBC, % SAT. ( WITHOUT FERRITIN)2016-06-28 06:31:00 Test Item Value Reference Range Comments IRON (BEAKER) (test xvwe=041) 54 ug/dL 40-160 TOTAL IRON BINDING CAPACITY (BEAKER) (test 213 ug/dL 250-450 fdxp=297) IRON % SATURATION (2) (BEAKER) (test dsvg=6225) 25 % 20-55 BASIC METABOLIC [id number] 06:11:00 Test Item Value Reference Range Comments SODIUM (BEAKER) (test 138 meq/L 136-145 zhlh=228) POTASSIUM (BEAKER) (test 3.0 meq/L 3.5-5.1 ocgs=453) CHLORIDE (BEAKER) (test 109 meq/L 98-107 wtly=580) CO2 (BEAKER) (test 19 meq/L 22-29 zwst=471) BLOOD UREA NITROGEN 5 mg/dL 7-21 (BEAKER) (test notm=693) CREATININE (BEAKER) (test 0.65 mg/dL 0.57-1.25 yylb=194) GLUCOSE RANDOM (BEAKER) 113 mg/dL 70-105 (test dmwt=712) CALCIUM (BEAKER) (test 7.8 mg/dL 8.4-10.2 iadz=942) EGFR (BEAKER) (test 122 mL/min/1.73 sq m ESTIMATED GFR IS NOT yxtt=6304) ACCURATE CREATININE CLEARANCE IN PREDICTING GLOMERULAR FILTRATION RATE. ESTIMATED GFR IS NOT APPLICABLE FOR DIALYSIS PATIENTS. HEPATIC FUNCTION [id number] 06:10:00 Test Item Value Reference Range Comments TOTAL PROTEIN (BEAKER) (test tbqi=111) 5.4 gm/dL 6.0-8.3 ALBUMIN (BEAKER) (test topn=0564) 3.0 g/dL 3.5-5.0 BILIRUBIN TOTAL (BEAKER) (test vsna=091) 0.3 mg/dL 0.2-1.2 BILIRUBIN DIRECT (BEAKER) (test coad=959) 0.2 mg/dL 0.1-0.5 ALKALINE PHOSPHATASE (BEAKER) (test pice=972) 189 U/L 40-150 AST (SGOT) (BEAKER) (test ieah=590) 32 U/L 5-34 ALT (SGPT) (BEAKER) (test lmod=624) 22 U/L 6-55 BASIC METABOLIC [id number] 00:12:00 Test Item Value Reference Range Comments SODIUM (BEAKER) (test 139 meq/L 136-145 cnot=496) POTASSIUM (BEAKER) (test 3.1 meq/L 3.5-5.1 ghlu=892) CHLORIDE (BEAKER) (test 110 meq/L 98-107 ithg=977) CO2 (BEAKER) (test 21 meq/L 22-29 lfsk=169) BLOOD UREA NITROGEN 6 mg/dL 7-21 (BEAKER) (test fird=982) CREATININE (BEAKER) (test 0.70 mg/dL 0.57-1.25 qerm=472) GLUCOSE RANDOM (BEAKER) 124 mg/dL 70-105 (test fsak=157) CALCIUM (BEAKER) (test 8.0 mg/dL 8.4-10.2 fuvx=730) EGFR (BEAKER) (test 112 mL/min/1.73 sq m ESTIMATED GFR IS NOT okjh=1163) ACCURATE CREATININE CLEARANCE IN PREDICTING GLOMERULAR FILTRATION RATE. ESTIMATED GFR IS NOT APPLICABLE FOR DIALYSIS PATIENTS. Needed for ADELE CT SCANCBC W/PLT COUNT & AUTO [id number] 23:55: 00 Test Item Value Reference Range Comments WHITE BLOOD CELL COUNT (BEAKER) (test uiqs=450) 4.4 K/ L 4.0-10.0 RED BLOOD CELL COUNT (BEAKER) (test ukja=283) 3.97 M/ L 4.20-5.80 HEMOGLOBIN (BEAKER) (test qxlb=718) 13.6 GM/DL 13.0-16.8 HEMATOCRIT (BEAKER) (test jhyb=416) 38.2 % 40.0-50.0 MEAN CORPUSCULAR VOLUME (BEAKER) (test xher=174) 96.3 fL 82.0-98.0 MEAN CORPUSCULAR HEMOGLOBIN (BEAKER) (test 34.3 pg 27.0-33.0 itaa=440) MEAN CORPUSCULAR HEMOGLOBIN CONC (BEAKER) (test 35.6 GM/DL 32.0-36.0 ppbh=972) RED CELL DISTRIBUTION WIDTH (BEAKER) (test 12.7 % 10.3-14.2 wfod=850) PLATELET COUNT (BEAKER) (test xmyr=803) 165 K/CU MM 150-430 MEAN PLATELET VOLUME (BEAKER) (test bgbq=426) 7.5 fL 6.5-10.5 NUCLEATED RED BLOOD CELLS (BEAKER) (test 0 /100 WBC 0-0 jjob=065) NEUTROPHILS RELATIVE PERCENT (BEAKER) (test 58 % kfnf=774) LYMPHOCYTES RELATIVE PERCENT (BEAKER) (test 34 % decs=043) MONOCYTES RELATIVE PERCENT (BEAKER) (test 7 % xyxd=755) EOSINOPHILS RELATIVE PERCENT (BEAKER) (test 1 % puho=970) BASOPHILS RELATIVE PERCENT (BEAKER) (test 0 % sbbn=192) NEUTROPHILS ABSOLUTE COUNT (BEAKER) (test 2.54 K/ L 1.80-8.00 mbzr=015) LYMPHOCYTES ABSOLUTE COUNT (BEAKER) (test 1.47 K/ L 1.48-4.50 xyuq=876) MONOCYTES ABSOLUTE COUNT (BEAKER) (test 0.32 K/ L 0.00-1.30 vxsb=928) EOSINOPHILS ABSOLUTE COUNT (BEAKER) (test 0.03 K/ L 0.00-0.50 nxic=427) BASOPHILS ABSOLUTE COUNT (BEAKER) (test 0.00 K/ L 0.00-0.20 mkku=368) 0.00
[2018-01-03] MEDS ORDERED: NA CHLORIDE 0.9% 1,000 ML ONE (06:19)
[2018-01-03 06:27] LABS: Absolute Lymphocytes (CBC) 1.8 K/uL (0.7-4.9); Absolute Monocytes 0.3 K/uL (0.1-1.3); Absolute Neutrophil 3.9 K/uL (1.8-8.0); Basophils % 0.4 % (0-1.3); Hematocrit 47.8 % (39.6-49.0); Lymphocytes % 30.1 % (15.3-44.8); MCH 35.5 pg (27.0-35.0); MCV 101.4 fL (80-100); MPV 8.6 fL (7.6-11.3); Monocytes % 5.1 % (3.3-12.3); RBC Red Blood Cell Count 4.72 M/uL (4.33-5.43)
[2018-01-03 06:39] LABS: ALT/SGPT 20 U/L (12-78); AST/SGOT 16 U/L (15-37); Albumin 3.8 g/dL (3.4-5.0); Alkaline Phosphatase 153 U/L (45-117); Amylase Level 77 U/L (25-115); BUN Blood Urea Nitrogen 11 mg/dL (7-18); Bicarbonate 24 mmol/L (21-32); Bilirubin Direct < 0.1 mg/dL (0-0.2); Bilirubin Total 0.5 mg/dL (0.2-1.0); Glucose Level 116 mg/dL (74-106); Lipase 131 U/L (73-393); Potassium 3.7 mmol/L (3.5-5.1); Protein, Total 7.7 g/dL (6.4-8.2); Sodium Level 143 mmol/L (136-145)
--- NOTE | 2018-01-03 07:59 | RAD REPORT ---
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 Oral contrast was given. All CT scans are performed using dose optimization technique as appropriate and may include automated exposure control or mA/KV adjustment according to patient size. FINDINGS: No suspicious findings in the lung bases. The liver, spleen, and pancreas show no suspicious findings. Gallbladder and biliary tree are also wi thout suspicious finding. Upper abdominal assessment is limited due to motion. Minimal right-sided hydronephrosis is present secondary to a 3 mm right UVJ calculus. Renal function is minimally delayed relative to the left. No left-sided hydronephrosis. A few small cysts are presen t. No acute renal parenchymal process. No gastric dilatation or gastric wall thickening. No acute small bowel finding. Since 2017 examinatio n there has been resection of the cecum and portion of the ascending colon. A large mass was present in this region. There may have been some small-bowel resection in this region as well. No abnormal ma ss or lymphadenopathy. No wall thickening or abnormality at the anastomotic site. Patient has also un dergone a surgical procedure. There is a staple line at the rectosigmoid junction. Soft tissue in thi s region is not outside of normal range. No free air, free fluid or inflammatory stranding. No hernia, mass or bulky lymphadenopathy. The u rinary bladder is without significant finding. No adrenal abnormality. Disc and bony degenerative changes are present. Prominent vascular calcifications. No new or progressive aortic process. IMPRESSION: Mild right-sided hydronephrosis secondary to a 3 mm UVJ calculus. At the cecum ascending colon resection site there is no mass, lymphadenopathy or acute finding. No ab normality at the rectosigmoid anastomotic site.
--- NOTE | 2018-01-03 08:49 | EDPHYS ---
Physician Documentation [facility] Name: Xiang Ocampo Age: 72 yrs Sex: Male : 1945 Arrival Date: 01/03/2018 Time: 05:33 Bed 15 Private MD: J Carlos Costello ED Physician Omer Alonzo HPI: 01/03 08:00 This 72 yrs old Male presents to ER via Wheelchair with complaints of pm1 Abdominal Pain. 08:00 The patient presents with abdominal pain in the upper abdomen. Onset: The pm1 symptoms/episode began/occurred this morning. The symptoms do not radiate. Associated signs and symptoms: Pertinent negatives: nausea, vomiting, and diarrhea, chest pain, dysuria, fever, shortness of breath. The symptoms are described as achy. Modifying factors: The symptoms are alleviated by nothing, the symptoms are aggravated by nothing. Severity of pain: in the emergency department the pain is actually worse. The patient has not experienced similar symptoms in the past. The patient has not recently seen a physician. Historical: - Allergies: 05:45 No Known Allergies; jd3 - Home Meds: 05:45 None [Active]; jd3 - PMHx: 05:45 bells palsey; Diverticulitis; Hypertension; Cancer; jd3 - PSHx: 05:45 abd sx to remove cancer; jd3 - Immunization history:: Adult Immunizations unknown. - Social history:: Smoking status: Patient uses tobacco products, smokes one-half pack cigarettes per day. - Ebola Screening: : Patient negative for fever greater than or equal to 101.5 degrees Fahrenheit, and additional compatible Ebola Virus Disease symptoms. ROS: 08:00 Constitutional: Negative for fever, chills, and weight loss, Eyes: Negative for injury, pm1 pain, redness, and discharge, ENT: Negative for injury, pain, and discharge, Neck: Negative for injury, pain, and swelling, Cardiovascular: Negative for chest pain, palpitations, and edema, Respiratory: Negative for shortness of breath, cough, wheezing, and pleuritic chest pain. 08:00 Back: Negative for injury and pain, : Negative for injury, bleeding, discharge, and swelling, MS/Extremity: Negative for injury and deformity, Skin: Negative for injury, rash, and discoloration, Neuro: Negative for headache, weakness, numbness, tingling, and seizure. 08:00 Abdomen/GI: Positive for abdominal pain, Negative for nausea, vomiting, and diarrhea. Exam: 08:00 Constitutional: This is a well developed, well nourished patient who is awake, alert, pm1 and in no acute distress. Head/Face: Normocephalic, atraumatic. Neck: Trachea midline, no thyromegaly or masses palpated, and no cervical lymphadenopathy. Supple, full range of motion without nuchal rigidity, or vertebral point tenderness. No Meningismus. Chest/axilla: Normal chest wall appearance and motion. Nontender with no deformity. No lesions are appreciated. Cardiovascular: Regular rate and rhythm with a normal S1 and S2. No gallops, murmurs, or rubs. Normal PMI, no JVD. No pulse deficits. Respiratory: Lungs have equal breath sounds bilaterally, clear to auscultation and percussion. No rales, rhonchi or wheezes noted. No increased work of breathing, no retractions or nasal flaring. 08:00 Back: No spinal tenderness. No costovertebral tenderness. Full range of motion. Skin: Warm, dry with normal turgor. Normal color with no rashes, no lesions, and no evidence of cellulitis. MS/ Extremity: Pulses equal, no cyanosis. Neurovascular intact. Full, normal range of motion. 08:00 Abdomen/GI: Inspection: abdomen appears normal, Bowel sounds: normal, Palpation: abdomen is soft and non-tender, in all quadrants. 08:00 Neuro: Orientation: is normal, Motor: is normal, moves all fours. Vital Signs: 05:45 BP 175 / 91; Pulse 82; Resp 22 S; Temp 98.3(O); Pulse Ox 98% on R/A; Weight 68.04 kg jd3 (R); Height 5 ft. 7 in. (170.18 cm) (R); Pain 5/10; 06:23 BP 146 / 83; Pulse 78; Resp 18; Pulse Ox 96% on R/A; ea 05:45 Body Mass Index 23.49 (68.04 kg, 170.18 cm) jd3 MDM: 06:04 Patient medically screened. pm1 08:47 Data reviewed: vital signs. Data interpreted: Pulse oximetry: on room air is 96 %. pm1 Interpretation: normal. Counseling: I had a detailed discussion with the patient and/or guardian regarding: the historical points, exam findings, and any diagnostic results supporting the discharge/admit diagnosis, lab results, radiology results, the need for outpatient follow up, to return to the emergency department if symptoms worsen or persist or if there are any questions or concerns that arise at home. 01/03 05:46 Order name: Amylase, Serum; Complete Time: 07:15 ea 01/03 05:46 Order name: Basic Metabolic Panel; Complete Time: 07:15 ea 01/03 05:46 Order name: CBC with Diff; Complete Time: 07:15 ea 01/03 05:46 Order name: Creatinine for Radiology; Complete Time: 07:15 ea 01/03 05:46 Order name: Hepatic Function; Complete Time: 07:15 ea 01/03 05:46 Order name: Lipase; Complete Time: 07:15 ea 01/03 05:46 Order name: IV Saline Lock; Complete Time: 06:22 ea 01/03 06:12 Order name: CT Abd/Pelvis - W/Contrast; Complete Time: 08:23 pm1 01/03 08:17 Order name: EKG Electrocardiogram; Complete Time: 09:00 EDMS 01/03 05:46 Order name: Labs collected and sent; Complete Time: 06:23 ea Administered Medications: 06:22 Drug: NS 0.9% 1000 ml Route: IV; Rate: 1000 ml; Site: right antecubital; ea 07:30 Follow up: Response: No adverse reaction; IV Status: Completed infusion; IV Intake: sg 990ml 08:57 Drug: Flomax 0.4 mg Route: PO; sg 10:24 Follow up: Response: No adverse reaction sg 09:01 Not Given (Patient Refused): morphine 4 mg IVP once sg 09:01 Not Given (Patient Refused): Zofran 4 mg IVP once; over 2 minutes sg Disposition: 01/03/18 08:49 Discharged to Home. Impression: Calculus of ureter. - Condition is Stable. - Discharge Instructions: Kidney Stones, Dietary Guidelines to Help Prevent Kidney Stones. - Prescriptions for Tylenol- Codeine #3 300-30 mg Oral Tablet - take 2 tablets by ORAL route every 6 hours As needed; 20 tablet. Zofran 4 mg Oral Tablet - take 1 tablet by ORAL route every 12 hours As needed; 20 tablet. Flomax 0.4 mg Oral Capsule, Sust. Release 24 hr - take 1 capsule by ORAL route once daily 1/2 hour following the same meal each day; 30 capsule. - Medication Reconciliation Form, Thank You Letter, Antibiotic Education, Prescription Opioid Use form. - Follow up: Emergency Department; When: As needed; Reason: Worsening of condition. Follow up: Kaye Hector MD; When: 2 - 3 days; Reason: Recheck today's complaints, Continuance of care, Re-evaluation by your physician. - Problem is new. - Symptoms have improved. Signatures: Dispatcher [employer] EDMS Tim Moore RN RN Lon Begum NP POTTERY DECORATION DESIGNER pm1 Iliana Foreman RN RN Wes Benjamin RN RN jd3 Corrections: (The following items were deleted from the chart) 09:08 08:49 01/03/2018 08:49 Discharged to Home. Impression: Calculus of ureter. Condition is sg Stable. Forms are Medication Reconciliation Form, Thank You Letter, Antibiotic Education, Prescription Opioid Use. Follow up: Emergency Department; When: As needed; Reason: Worsening of condition. Follow up: Kaye Hector; When: 2 - 3 days; Reason: Recheck today's complaints, Continuance of care, Re-evaluation by your physician. Problem is new. Symptoms have improved. pm1
--- NOTE | 2018-01-03 08:49 | ER ---
Nurse's Notes [facility] Name: Xiang Ocampo Age: 72 yrs Sex: Male : 1945 Arrival Date: 01/03/2018 Time: 05:33 Bed 15 Private MD: J Carlos Costello Diagnosis: Calculus of ureter Presentation: 01/03 05:41 Presenting complaint: Patient states: "I am having really bad abdominal pain where I jd3 had surgery 2 years ago to get cancer taken out of me. I am also having nausea and weakness.". Transition of care: patient was not received from another setting of care. Onset of symptoms was January 03, 2018. Risk Assessment: Do you want to hurt yourself or someone else? Patient reports no desire to harm self or others. Initial Sepsis Screen: Does the patient meet any 2 criteria? No. Patient's initial sepsis screen is negative. Does the patient have a suspected source of infection? No. Patient's initial sepsis screen is negative. Care prior to arrival: None. 05:41 Method Of Arrival: Wheelchair jd3 05:41 Acuity: MIKE 3 jd3 Historical: - Allergies: 05:45 No Known Allergies; jd3 - Home Meds: 05:45 None [Active]; jd3 - PMHx: 05:45 bells palsey; Diverticulitis; Hypertension; Cancer; jd3 - PSHx: 05:45 abd sx to remove cancer; jd3 - Immunization history:: Adult Immunizations unknown. - Social history:: Smoking status: Patient uses tobacco products, smokes one-half pack cigarettes per day. - Ebola Screening: : Patient negative for fever greater than or equal to 101.5 degrees Fahrenheit, and additional compatible Ebola Virus Disease symptoms. Screenin:47 Abuse screen: Denies threats or abuse. Nutritional screening: No deficits noted. jd3 Tuberculosis screening: No symptoms or risk factors identified. Fall Risk Ambulatory Aid- Crutches/Cane/Walker (15 pts). Gait- Weak (10 pts.). Mental Status- Oriented to own ability (0 pts). Total Dhillon Fall Scale indicates Low Risk Score (25-44 pts). Fall prevention measures have been instituted. Side Rails Up X 2 Placed close to Nursing Station Frequent Obs/Assesments occuring Family Present and informed to notify staff if they need to leave bedside. Assessment: 05:43 General: Appears uncomfortable, Behavior is calm, cooperative, appropriate for age. ea Pain: Complains of pain in umbilical area, right upper quadrant and left upper quadrant Pain does not radiate. Pain currently is 5 out of 10 on a pain scale. Quality of pain is described as aching, Is continuous. Neuro: Level of Consciousness is awake, alert, obeys commands, Oriented to person, place, time, situation. Cardiovascular: Patient's skin is warm and dry. Respiratory: Airway is patent Respiratory effort is even, unlabored, Respiratory pattern is regular, symmetrical, Breath sounds are clear bilaterally. GI: Abdomen is flat, Bowel sounds present X 4 quads. Abdomen is tender to palpation in right upper quadrant and left upper quadrant. : No signs and/or symptoms were reported regarding the genitourinary system. EENT: No signs and/or symptoms were reported regarding the EENT system. Derm: Skin is pink, warm \\T\\ dry. Musculoskeletal: Circulation, motion, and sensation intact. 06:28 Reassessment: Pt completed contrasts, test tech notified. ea 06:51 Reassessment: Patient and/or family updated on plan of care and expected duration. Pain ea level reassessed. Patient is alert, oriented x 3, equal unlabored respirations, skin warm/dry/pink. 07:28 Reassessment: Patient appears in no apparent distress at this time. Patient and/or sg family updated on plan of care and expected duration. Pain level reassessed. Patient is alert, oriented x 3, equal unlabored respirations, skin warm/dry/pink. a bedside commode has been placed at the bedside, pt son remains at bedside. will continue to monitor. Vital Signs: 05:45 BP 175 / 91; Pulse 82; Resp 22 S; Temp 98.3(O); Pulse Ox 98% on R/A; Weight 68.04 kg jd3 (R); Height 5 ft. 7 in. (170.18 cm) (R); Pain 5/10; 06:23 BP 146 / 83; Pulse 78; Resp 18; Pulse Ox 96% on R/A; ea 05:45 Body Mass Index 23.49 (68.04 kg, 170.18 cm) jd3 ED Course: 05:33 Patient arrived in ED. ds1 05:33 J Carlos Costello DO is Private Physician. ds1 05:34 Iliana Foreman, RN is Primary Nurse. ea 05:43 Triage completed. jd3 05:46 Arm band placed on. jd3 05:47 Abdominal pain workup initiated per nursing protocol. ea 05:47 Patient has correct armband on for positive identification. Bed in low position. Call jd3 light in reach. Side rails up X2. Adult w/ patient. 06:00 Inserted saline lock: 20 gauge in right antecubital area, using aseptic technique. ea Blood collected. 06:02 Lon Caldwell NP is PHCP. pm1 06:02 Omer Alonzo MD is Attending Physician. pm1 06:59 Report given to Tim DAO. ea 07:25 Primary Nurse role handed off by Iliana Foreman RN sg 07:25 Tim Moore RN is Primary Nurse. sg 07:28 Cleaned of incontinence. sg 07:[address] via wheelchair. sg 07:35 CT completed. Patient tolerated procedure well. Patient moved to CT via stretcher. jg6 Patient moved back from CT. 07:45 CT Abd/Pelvis - W/Contrast In Process Unspecified. EDMS 08:47 Kaye Hector MD is Referral Physician. pm1 09:08 No provider procedures requiring assistance completed. IV discontinued, intact, sg bleeding controlled, No redness/swelling at site. Pressure dressing applied. Administered Medications: 06:22 Drug: NS 0.9% 1000 ml Route: IV; Rate: 1000 ml; Site: right antecubital; ea 07:30 Follow up: Response: No adverse reaction; IV Status: Completed infusion; IV Intake: sg 990ml 08:57 Drug: Flomax 0.4 mg Route: PO; sg 10:24 Follow up: Response: No adverse reaction sg 09:01 Not Given (Patient Refused): morphine 4 mg IVP once sg 09:01 Not Given (Patient Refused): Zofran 4 mg IVP once; over 2 minutes sg Outcome: 08:49 Discharge ordered by . pm1 09:08 Discharged to home ambulatory, with family. sg 09:08 Condition: good 09:08 Discharge instructions given to patient, Instructed on discharge instructions, follow up and referral plans. medication usage, safety practices, Demonstrated understanding of instructions, follow-up care, medications, Prescriptions given X 3. 09:08 Patient left the ED. sg Signatures: Dispatcher [employer] EDMS Tim Moore RN RN Denise Stokes ds1 Lon Caldwell, JOSE [employer] NETWORK CONTROLLER pm1 Iliana Foreman RN RN ea Davies, Jonathon, RN RN Opal Chopra
[2018-01-03] MEDS ORDERED: TAMSULOSIN 0.4 MG SR CAP ONE (08:59)
--- NOTE | 2018-01-04 07:10 | EKG ---
Test Date: 2018-01-03 Test Time: 06:08:55 Head Counselor: DELMAR MEASUREMENT RESULTS: Intervals: Rate: 84 CT: 146 QRSD: 76 QT: 372 QTc: 439 [place]: P: 60 CT: 146 QRS: 95 T: 44 INTERPRETIVE STATEMENTS: Normal sinus rhythm Rightward axis Borderline ECG Compared to ECG 06/26/2016 11:22:37 No significant changes Electronically Signed On 01-04-18 07:09:31 CDT by Sukhdeep Ramires
== END 2018-01-03 09:08 | disposition home or self-care (01) ==
LOC: ER 05:32
DX: N13.2 Hydronephrosis with renal and ureteral calculous obstruction (principal); F17.210 Nicotine dependence, cigarettes, uncomplicated; I10 Essential (primary) hypertension
CPT/HCPCS: 36415; 74177; 80048; 80076; 82150; 83690; 85025; 93005; 96360; 99284; J7030; Q9967

== ENCOUNTER 2018-06-06 15:58 | Observation (INO) | payer OTHER ==
--- OUTSIDE RECORDS SUMMARY | 2018-06-06 16:03 | XMS REPORT | Clinical Summary ---
:1945 Author Organization 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 Last Filed Vital Signs Not on file Plan of Treatment Not on file Results Not on fileafter 06/05/2017 Insurance Payer Benefit Plan / Group Subscriber ID Type Phone Address [facility] xxxxxxxxx Maps Contracted (Home) [address] [place] [phone] Advance Directives For more information, please contact:[place] [address] [employer] [place], [place] [phone] Code Status Date Activated Date Inactivated Comments Full Code 07/28/2016 5:45 AM 08/07/2016 2:47 PM This code status was determined by: Patient Partial Code 06/27/2016 9:49 PM 07/01/2016 8:33 PM This code status was determined by: Patient Drug Protocol After Arrest Occurs? Yes Mechanical Ventilation with Intubation? No Bag/Mask? No Internal/External Pacemaker? No Transfer to Critical Care? Yes Chest Compressions? No Defibrillation/Cardioversion? No
--- OUTSIDE RECORDS SUMMARY | 2018-06-06 16:04 | XMS REPORT ---
:1945 [facility] Address [address] [place] [address] Dr. [place] [address] [place] [address] Care Team Providers Name Role Phone URSULA KELLY Unavailable Unavailable ALEJANDRO MEDINA Unavailable Unavailable Problems This patient has no known problems. Allergies, Adverse Reactions, Alerts This patient has no known allergies or adverse reactions. Medications This patient has no known medications. Results Test Description Test Time Test Comments Text Results Atomic Results Result Comments TISSUE 2016-08-11 Surgical Pathology Report Case: [id number] EXAM 18:34:00 Catalino briones Provider: Ursula Kelly MD Ordering Provider: Ursula Kelly MD Ordering Location: [facility] PERIOPERATIVE Collected: 07/28/2016 0906 SERVICES Pathologist: [...] FOR TUMOR Signing Pathologist Direct Phone Line: [phone]. The tumor invades through the colonic wall [...] developed and its performance characteristics determined by [facility], Pathology Laboratory. It has not been cleared [...] the submitted specimen(s)ADDITIONAL FINDINGS Additional Pathologic Findings: Adenoma(s)95980, 87803, 37624 X 3, 30903 X 4Colon cancerA. Omentum; B. Right colon and sigmoid colon; C. Rectal stump; D. Proximal anastomotic colon donut; E. Distal anastomotic colon donutSpecimen is received in five containers of formalin all labeled with the patient's information.Specimen A labeled "omentum" consists of a segment of omentum measuring 12.5 x 7 x 1 cm. Grossly, no suspicious areas are seen. Roving Technician sections submitted A1 to A4, two sections [...] (BEAKER) (test 124 mg/dL 70-110 TESTED AT [address] yyob=4364) [facility] [address] POCT-GLUCOSE [id number] 05:48:00 Test Item Value Reference Range Comments POC-GLUCOSE METER (Medical SimulationAKER) 115 mg/dL 70-110 TESTED AT [address] (test zdzg=1459) [facility] [address] [id number] 05:24:00 Test Item Value Reference Range Comments TRIGLYCERIDES (BEAKER) (test wdqk=324) 213 mg/dL TRIGLYCERIDE REFERENCE RANGELow Risk <150Borderline Risk 150-199High Risk 200-499Very High Risk>=[id number] 05:24:00 Test Item Value Reference Range Comments MAGNESIUM (BEAKER) (test agyn=947) 2.0 mg/dL 1.6-2.6 [id number] 05:24:00 Test Item Value Reference Range Comments PHOSPHORUS (BEAKER) (test gsdg=506) 3.6 mg/dL 2.3-4.7 BASIC METABOLIC [id number] 05:24:00 Test Item Value Reference Range Comments SODIUM (BEAKER) (test 138 meq/L 136-145 iiot=534) POTASSIUM (BEAKER) (test 3.8 meq/L 3.5-5.1 xybf=880) CHLORIDE (BEAKER) (test 108 meq/L 98-107 kcth=265) CO2 (BEAKER) (test 21 meq/L 22-29 vgwo=170) BLOOD UREA NITROGEN 10 mg/dL 7-21 (BEAKER) (test blzx=109) CREATININE (BEAKER) (test 0.61 mg/dL 0.57-1.25 wtvj=464) GLUCOSE RANDOM (BEAKER) 99 mg/dL 70-105 (test vwzn=779) CALCIUM (BEAKER) (test 8.3 mg/dL 8.4-10.2 jjyn=602) EGFR (BEAKER) (test 131 mL/min/1.73 sq m ESTIMATED GFR IS NOT ytgx=5224) ACCURATE CREATININE CLEARANCE IN PREDICTING GLOMERULAR FILTRATION RATE. ESTIMATED GFR IS NOT APPLICABLE FOR DIALYSIS PATIENTS. POCT-GLUCOSE [id number] 00:14:00 Test Item Value Reference Range Comments POC-GLUCOSE METER (BEAKER) 107 mg/dL 70-110 TESTED AT [address] (test fwsa=4373) [facility] [address] POCT-GLUCOSE [id number] 12:03:00 Test Item Value Reference Range Comments POC-GLUCOSE METER (BEAKER) 123 mg/dL 70-110 TESTED AT [address] (test yuqo=6500) [place] [id number] POCT-GLUCOSE [id number] 06:52:00 Test Item Value Reference Range Comments POC-GLUCOSE METER (BEAKER) 115 mg/dL 70-110 TESTED AT [address] (test qqoy=9952) [place] [address] [id number] 05:30:00 Test Item Value Reference Range Comments TRIGLYCERIDES (BEAKER) (test dyfe=604) 151 mg/dL TRIGLYCERIDE REFERENCE RANGELow Risk <150Borderline Risk 150-199High Risk 200-499Very High Risk>=[id number] 05:30:00 Test Item Value Reference Range Comments MAGNESIUM (BEAKER) (test yqxa=935) 1.9 mg/dL 1.6-2.6 [id number] 05:30:00 Test Item Value Reference Range Comments PHOSPHORUS (BEAKER) (test joej=185) 3.9 mg/dL 2.3-4.7 BASIC METABOLIC [id number] 05:30:00 Test Item Value Reference Range Comments SODIUM (BEAKER) (test 138 meq/L 136-145 kitu=961) POTASSIUM (BEAKER) (test 4.0 meq/L 3.5-5.1 jiaw=326) CHLORIDE (BEAKER) (test 109 meq/L 98-107 dera=321) CO2 (BEAKER) (test 22 meq/L 22-29 ugpe=546) BLOOD UREA NITROGEN 12 mg/dL 7-21 (BEAKER) (test ulan=551) CREATININE (BEAKER) (test 0.55 mg/dL 0.57-1.25 fzxj=460) GLUCOSE RANDOM (BEAKER) 105 mg/dL 70-105 (test ubjm=077) CALCIUM (BEAKER) (test 8.0 mg/dL 8.4-10.2 jthw=647) EGFR (BEAKER) (test 148 mL/min/1.73 sq m ESTIMATED GFR IS NOT grnv=1851) ACCURATE CREATININE CLEARANCE IN PREDICTING GLOMERULAR FILTRATION RATE. ESTIMATED GFR IS NOT APPLICABLE FOR DIALYSIS PATIENTS. POCT-GLUCOSE [id number] 23:20:00 Test Item Value Reference Range Comments POC-GLUCOSE METER (BEAKER) 104 mg/dL 70-110 TESTED AT [address] (test dimu=5713) [facility] [address] POCT-GLUCOSE [id number] 17:14:00 Test Item Value Reference Range Comments POC-GLUCOSE METER (BEAKER) 90 mg/dL 70-110 TESTED AT [place] [id number] (test hpem=9584) [facility] [address] POCT-GLUCOSE [id number] 11:54:00 Test Item Value Reference Range Comments POC-GLUCOSE METER (BEAKER) 106 mg/dL 70-110 TESTED AT [facility] [address] (test purt=4302) [facility] [address] CBC W/PLT COUNT & AUTO [id number] 09:24:00 Test Item Value Reference Range Comments WHITE BLOOD CELL COUNT (BEAKER) (test cgrh=794) 4.6 K/ L 4.0-10.0 RED BLOOD CELL COUNT (BEAKER) (test lxyf=119) 3.49 M/ L 4.20-5.80 HEMOGLOBIN (BEAKER) (test vara=092) 11.7 GM/DL 13.0-16.8 HEMATOCRIT (BEAKER) (test iwnc=172) 35.5 % 40.0-50.0 MEAN CORPUSCULAR VOLUME (BEAKER) (test wpat=805) 101.0 fL 82.0-98.0 MEAN CORPUSCULAR HEMOGLOBIN (BEAKER) (test 33.5 pg 27.0-33.0 nfji=056) MEAN CORPUSCULAR HEMOGLOBIN CONC (BEAKER) (test 33.0 GM/DL 32.0-36.0 jvpg=256) RED CELL DISTRIBUTION WIDTH (BEAKER) (test 13.9 % 10.3-14.2 uapi=303) PLATELET COUNT (BEAKER) (test paxu=937) 203 K/CU MM 150-430 MEAN PLATELET VOLUME (BEAKER) (test hlzx=586) 7.3 fL 6.5-10.5 NUCLEATED RED BLOOD CELLS (BEAKER) (test 0 /100 WBC 0-0 iakk=329) NEUTROPHILS RELATIVE PERCENT (BEAKER) (test 57 % lftg=081) LYMPHOCYTES RELATIVE PERCENT (BEAKER) (test 28 % wkuc=225) MONOCYTES RELATIVE PERCENT (BEAKER) (test 8 % flkh=681) EOSINOPHILS RELATIVE PERCENT (BEAKER) (test 7 % ldqk=618) BASOPHILS RELATIVE PERCENT (BEAKER) (test 0 % jgei=830) NEUTROPHILS ABSOLUTE COUNT (BEAKER) (test 2.60 K/ L 1.80-8.00 zvnx=370) LYMPHOCYTES ABSOLUTE COUNT (BEAKER) (test 1.27 K/ L 1.48-4.50 fffx=849) MONOCYTES ABSOLUTE COUNT (BEAKER) (test 0.38 K/ L 0.00-1.30 tjsy=834) EOSINOPHILS ABSOLUTE COUNT (BEAKER) (test 0.30 K/ L 0.00-0.50 vxuz=905) BASOPHILS ABSOLUTE COUNT (BEAKER) (test 0.00 K/ L 0.00-0.20 lwug=282) [id number] 07:12:00 Test Item Value Reference Range Comments TRIGLYCERIDES (BEAKER) (test jpmc=792) 108 mg/dL TRIGLYCERIDE REFERENCE RANGELow Risk <150Borderline Risk 150-199High Risk 200-499Very High Risk>=[id number] 07:12:00 Test Item Value Reference Range Comments MAGNESIUM (BEAKER) (test onfl=164) 2.0 mg/dL 1.6-2.6 [id number] 07:12:00 Test Item Value Reference Range Comments PHOSPHORUS (BEAKER) (test qpam=705) 3.4 mg/dL 2.3-4.7 BASIC METABOLIC [id number] 07:12:00 Test Item Value Reference Range Comments SODIUM (BEAKER) (test 139 meq/L 136-145 opid=914) POTASSIUM (BEAKER) (test 4.1 meq/L 3.5-5.1 xeth=264) CHLORIDE (BEAKER) (test 112 meq/L 98-107 hdxl=400) CO2 (BEAKER) (test 19 meq/L 22-29 ikpe=666) BLOOD UREA NITROGEN 9 mg/dL 7-21 (BEAKER) (test holy=853) CREATININE (BEAKER) (test 0.55 mg/dL 0.57-1.25 icqm=699) GLUCOSE RANDOM (BEAKER) 105 mg/dL 70-105 (test otsn=355) CALCIUM (BEAKER) (test 7.9 mg/dL 8.4-10.2 plho=390) EGFR (BEAKER) (test 148 mL/min/1.73 sq m ESTIMATED GFR IS NOT zhbi=6580) ACCURATE CREATININE CLEARANCE IN PREDICTING GLOMERULAR FILTRATION RATE. ESTIMATED GFR IS NOT APPLICABLE FOR DIALYSIS PATIENTS. POCT-GLUCOSE [id number] 05:45:00 Test Item Value Reference Range Comments POC-GLUCOSE METER (BEAKER) 115 mg/dL 70-110 TESTED AT [address] (test ddzl=9324) [place] [id number] POCT-GLUCOSE [id number] 23:28:00 Test Item Value Reference Range Comments POC-GLUCOSE METER (BEAKER) 124 mg/dL 70-110 TESTED AT [address] (test uxds=5347) [place] [id number] POCT-GLUCOSE [id number] 16:34:00 Test Item Value Reference Range Comments POC-GLUCOSE METER (BEAKER) 127 mg/dL 70-110 TESTED AT [address] (test xqsm=3891) [place] [address] POCT-GLUCOSE [id number] 11:04:00 Test Item Value Reference Range Comments POC-GLUCOSE METER (BEAKER) 146 mg/dL 70-110 TESTED AT [address] (test qcyy=8104) [place] [id number] POCT-GLUCOSE [id number] 05:28:00 Test Item Value Reference Range Comments POC-GLUCOSE METER (BEAKER) 130 mg/dL 70-110 TESTED AT [address] (test oina=9420) [place] [id number] BASIC METABOLIC [id number] 04:56:00 Test Item Value Reference Range Comments SODIUM (BEAKER) (test 138 meq/L 136-145 dlcr=234) POTASSIUM (BEAKER) (test 3.7 meq/L 3.5-5.1 mvzq=872) CHLORIDE (BEAKER) (test 110 meq/L 98-107 gtse=330) CO2 (BEAKER) (test 18 meq/L 22-29 jeli=046) BLOOD UREA NITROGEN 6 mg/dL 7-21 (BEAKER) (test zdtm=012) CREATININE (BEAKER) (test 0.58 mg/dL 0.57-1.25 nivk=825) GLUCOSE RANDOM (BEAKER) 116 mg/dL 70-105 (test twli=526) CALCIUM (BEAKER) (test 7.5 mg/dL 8.4-10.2 zrih=440) EGFR (BEAKER) (test 139 mL/min/1.73 sq m ESTIMATED GFR IS NOT oszd=4429) ACCURATE CREATININE CLEARANCE IN PREDICTING GLOMERULAR FILTRATION RATE. ESTIMATED GFR IS NOT APPLICABLE FOR DIALYSIS PATIENTS. [id number] 04:52:00 Test Item Value Reference Range Comments TRIGLYCERIDES (BEAKER) (test dfjb=487) 98 mg/dL TRIGLYCERIDE REFERENCE RANGELow Risk <150Borderline Risk 150-199High Risk 200-499Very High Risk>=[id number] 04:52:00 Test Item Value Reference Range Comments MAGNESIUM (BEAKER) (test nfxu=694) 1.9 mg/dL 1.6-2.6 [id number] 04:52:00 Test Item Value Reference Range Comments PHOSPHORUS (BEAKER) (test sxuk=871) 3.0 mg/dL 2.3-4.7 CBC W/PLT COUNT & AUTO [id number] 04:44:00 Test Item Value Reference Range Comments WHITE BLOOD CELL COUNT (BEAKER) (test zkgp=669) 4.0 K/ L 4.0-10.0 RED BLOOD CELL COUNT (BEAKER) (test zmya=773) 3.33 M/ L 4.20-5.80 HEMOGLOBIN (BEAKER) (test hgfq=944) 11.3 GM/DL 13.0-16.8 HEMATOCRIT (BEAKER) (test emsg=653) 33.8 % 40.0-50.0 MEAN CORPUSCULAR VOLUME (BEAKER) (test mqje=234) 102.0 fL 82.0-98.0 MEAN CORPUSCULAR HEMOGLOBIN (BEAKER) (test 34.0 pg 27.0-33.0 ikmc=815) MEAN CORPUSCULAR HEMOGLOBIN CONC (BEAKER) (test 33.5 GM/DL 32.0-36.0 hamg=909) RED CELL DISTRIBUTION WIDTH (BEAKER) (test 14.7 % 10.3-14.2 vcls=103) PLATELET COUNT (BEAKER) (test wnnd=234) 215 K/CU MM 150-430 MEAN PLATELET VOLUME (BEAKER) (test lrgd=211) 6.9 fL 6.5-10.5 NUCLEATED RED BLOOD CELLS (BEAKER) (test 0 /100 WBC 0-0 rzxk=131) NEUTROPHILS RELATIVE PERCENT (BEAKER) (test 65 % kwch=455) LYMPHOCYTES RELATIVE PERCENT (BEAKER) (test 21 % yvrk=979) MONOCYTES RELATIVE PERCENT (BEAKER) (test 10 % euda=137) EOSINOPHILS RELATIVE PERCENT (BEAKER) (test 4 % uqdt=916) BASOPHILS RELATIVE PERCENT (BEAKER) (test 0 % mpua=836) NEUTROPHILS ABSOLUTE COUNT (BEAKER) (test 2.56 K/ L 1.80-8.00 kkab=851) LYMPHOCYTES ABSOLUTE COUNT (BEAKER) (test 0.85 K/ L 1.48-4.50 baeb=113) MONOCYTES ABSOLUTE COUNT (BEAKER) (test 0.39 K/ L 0.00-1.30 ckvl=660) EOSINOPHILS ABSOLUTE COUNT (BEAKER) (test 0.14 K/ L 0.00-0.50 mmnb=504) BASOPHILS ABSOLUTE COUNT (BEAKER) (test 0.02 K/ L 0.00-0.20 ukir=878) 0.00POCT-GLUCOSE [id number] 23:43:00 Test Item Value Reference Range Comments POC-GLUCOSE METER (BEAKER) 156 mg/dL 70-110 TESTED AT [facility] [address] (test leor=6601) [facility] [address] CBC W/PLT COUNT & AUTO [id number] 08:12:00 Test Item Value Reference Range Comments WHITE BLOOD CELL COUNT (BEAKER) (test yyqq=121) 3.6 K/ L 4.0-10.0 RED BLOOD CELL COUNT (BEAKER) (test ieqt=644) 3.62 M/ L 4.20-5.80 HEMOGLOBIN (BEAKER) (test ixfy=212) 11.9 GM/DL 13.0-16.8 HEMATOCRIT (BEAKER) (test rvwm=219) 36.0 % 40.0-50.0 MEAN CORPUSCULAR VOLUME (BEAKER) (test kvjm=076) 99.4 fL 82.0-98.0 MEAN CORPUSCULAR HEMOGLOBIN (BEAKER) (test 32.9 pg 27.0-33.0 codk=482) MEAN CORPUSCULAR HEMOGLOBIN CONC (BEAKER) (test 33.1 GM/DL 32.0-36.0 cqqz=760) RED CELL DISTRIBUTION WIDTH (BEAKER) (test 13.5 % 10.3-14.2 sczv=351) PLATELET COUNT (BEAKER) (test oamf=847) 241 K/CU MM 150-430 MEAN PLATELET VOLUME (BEAKER) (test vuel=610) 6.9 fL 6.5-10.5 NUCLEATED RED BLOOD CELLS (BEAKER) (test 0 /100 WBC 0-0 gsxf=410) NEUTROPHILS RELATIVE PERCENT (BEAKER) (test 64 % sjqa=206) LYMPHOCYTES RELATIVE PERCENT (BEAKER) (test 22 % pqhw=351) MONOCYTES RELATIVE PERCENT (BEAKER) (test 11 % eeob=727) EOSINOPHILS RELATIVE PERCENT (BEAKER) (test 3 % wicg=206) BASOPHILS RELATIVE PERCENT (BEAKER) (test 1 % rvtn=452) NEUTROPHILS ABSOLUTE COUNT (BEAKER) (test 2.29 K/ L 1.80-8.00 fyhp=833) LYMPHOCYTES ABSOLUTE COUNT (BEAKER) (test 0.80 K/ L 1.48-4.50 oism=618) MONOCYTES ABSOLUTE COUNT (BEAKER) (test 0.38 K/ L 0.00-1.30 mdku=007) EOSINOPHILS ABSOLUTE COUNT (BEAKER) (test 0.10 K/ L 0.00-0.50 tmsu=303) BASOPHILS ABSOLUTE COUNT (BEAKER) (test 0.02 K/ L 0.00-0.20 zpqp=345) 0.00BASIC METABOLIC [id number] 06:57:00 Test Item Value Reference Range Comments SODIUM (BEAKER) (test 135 meq/L 136-145 ktpx=118) POTASSIUM (BEAKER) (test 3.9 meq/L 3.5-5.1 abgx=588) CHLORIDE (BEAKER) (test 109 meq/L 98-107 avlm=859) CO2 (BEAKER) (test 19 meq/L 22-29 ujha=450) BLOOD UREA NITROGEN 4 mg/dL 7-21 (BEAKER) (test nibp=298) CREATININE (BEAKER) (test 0.59 mg/dL 0.57-1.25 lvjm=519) GLUCOSE RANDOM (BEAKER) 114 mg/dL 70-105 (test okay=470) CALCIUM (BEAKER) (test 7.6 mg/dL 8.4-10.2 khqn=128) EGFR (BEAKER) (test 137 mL/min/1.73 sq m ESTIMATED GFR IS NOT ceue=4397) ACCURATE CREATININE CLEARANCE IN PREDICTING GLOMERULAR FILTRATION RATE. ESTIMATED GFR IS NOT APPLICABLE FOR DIALYSIS PATIENTS. [id number] 06:53:00 Test Item Value Reference Range Comments PHOSPHORUS (BEAKER) (test jqhc=273) 2.5 mg/dL 2.3-4.7 [id number] 06:53:00 Test Item Value Reference Range Comments MAGNESIUM (BEAKER) (test rqnh=461) 1.8 mg/dL 1.6-2.6 [id number] 06:12:00 Test Item Value Reference Range Comments PHOSPHORUS (BEAKER) (test jmcy=794) 2.6 mg/dL 2.3-4.7 [id number] 06:12:00 Test Item Value Reference Range Comments MAGNESIUM (BEAKER) (test xntu=566) 1.8 mg/dL 1.6-2.6 BASIC METABOLIC [id number] 04:05:00 Test Item Value Reference Range Comments SODIUM (BEAKER) (test 139 meq/L 136-145 rfpu=331) POTASSIUM (BEAKER) (test 4.0 meq/L 3.5-5.1 wyjy=420) CHLORIDE (BEAKER) (test 111 meq/L 98-107 bypd=366) CO2 (BEAKER) (test 22 meq/L 22-29 vldq=512) BLOOD UREA NITROGEN 6 mg/dL 7-21 (BEAKER) (test jrgh=938) CREATININE (BEAKER) (test 0.62 mg/dL 0.57-1.25 uapg=445) GLUCOSE RANDOM (BEAKER) 120 mg/dL 70-105 (test kcfz=776) CALCIUM (BEAKER) (test 7.9 mg/dL 8.4-10.2 xnjv=983) EGFR (BEAKER) (test 129 mL/min/1.73 sq m ESTIMATED GFR IS NOT pjky=5832) ACCURATE CREATININE CLEARANCE IN PREDICTING GLOMERULAR FILTRATION RATE. ESTIMATED GFR IS NOT APPLICABLE FOR DIALYSIS PATIENTS. POCT-GLUCOSE [id number] 18:23:00 Test Item Value Reference Range Comments POC-GLUCOSE METER (BEAKER) 138 mg/dL 70-110 TESTED AT [facility] [address] (test kcuo=0627) [facility] [address] [id number] 05:27:00 Test Item Value Reference Range Comments PHOSPHORUS (BEAKER) (test hhlg=979) 2.8 mg/dL 2.3-4.7 [id number] 05:27:00 Test Item Value Reference Range Comments MAGNESIUM (BEAKER) (test ipix=638) 1.9 mg/dL 1.6-2.6 BASIC METABOLIC [id number] 05:27:00 Test Item Value Reference Range Comments SODIUM (BEAKER) (test 139 meq/L 136-145 wqea=079) POTASSIUM (BEAKER) (test 3.8 meq/L 3.5-5.1 zcpf=568) CHLORIDE (BEAKER) (test 107 meq/L 98-107 vgsz=745) CO2 (BEAKER) (test 22 meq/L 22-29 smzg=586) BLOOD UREA NITROGEN 3 mg/dL 7-21 (BEAKER) (test azey=699) CREATININE (BEAKER) (test 0.61 mg/dL 0.57-1.25 htsd=299) GLUCOSE RANDOM (BEAKER) 99 mg/dL 70-105 (test uhcz=164) CALCIUM (BEAKER) (test 8.6 mg/dL 8.4-10.2 xqql=398) EGFR (BEAKER) (test 131 mL/min/1.73 sq m ESTIMATED GFR IS NOT gicc=5792) ACCURATE CREATININE CLEARANCE IN PREDICTING GLOMERULAR FILTRATION RATE. ESTIMATED GFR IS NOT APPLICABLE FOR DIALYSIS PATIENTS. [id number] 05:37:00 Test Item Value Reference Range Comments PHOSPHORUS (BEAKER) (test ngim=797) 2.2 mg/dL 2.3-4.7 [id number] 05:37:00 Test Item Value Reference Range Comments MAGNESIUM (BEAKER) (test hygq=337) 2.1 mg/dL 1.6-2.6 BASIC METABOLIC [id number] 05:37:00 Test Item Value Reference Range Comments SODIUM (BEAKER) (test 143 meq/L 136-145 hdzp=197) POTASSIUM (BEAKER) (test 3.6 meq/L 3.5-5.1 vqmo=413) CHLORIDE (BEAKER) (test 111 meq/L 98-107 cqfu=975) CO2 (BEAKER) (test 22 meq/L 22-29 rphv=604) BLOOD UREA NITROGEN 4 mg/dL 7-21 (BEAKER) (test fqji=612) CREATININE (BEAKER) (test 0.68 mg/dL 0.57-1.25 fztc=644) GLUCOSE RANDOM (BEAKER) 108 mg/dL 70-105 (test uknq=442) CALCIUM (BEAKER) (test 8.8 mg/dL 8.4-10.2 inas=731) EGFR (BEAKER) (test 116 mL/min/1.73 sq m ESTIMATED GFR IS NOT ufnq=2527) ACCURATE CREATININE CLEARANCE IN PREDICTING GLOMERULAR FILTRATION RATE. ESTIMATED GFR IS NOT APPLICABLE FOR DIALYSIS PATIENTS. CBC (HEMOGRAM ONLY)2016-07-30 05:36:00 Test Item Value Reference Range Comments WHITE BLOOD CELL COUNT (BEAKER) (test jglw=810) 9.6 K/ L 4.0-10.0 RED BLOOD CELL COUNT (BEAKER) (test ecal=498) 3.94 M/ L 4.20-5.80 HEMOGLOBIN (BEAKER) (test rxhy=855) 12.9 GM/DL 13.0-16.8 HEMATOCRIT (BEAKER) (test hlxe=980) 39.4 % 40.0-50.0 MEAN CORPUSCULAR VOLUME (BEAKER) (test bcej=807) 100.0 fL 82.0-98.0 MEAN CORPUSCULAR HEMOGLOBIN (BEAKER) (test 32.7 pg 27.0-33.0 xrps=131) MEAN CORPUSCULAR HEMOGLOBIN CONC (BEAKER) (test 32.7 GM/DL 32.0-36.0 ppyi=197) RED CELL DISTRIBUTION WIDTH (BEAKER) (test 13.9 % 10.3-14.2 borq=251) PLATELET COUNT (BEAKER) (test ohhb=504) 303 K/CU MM 150-430 MEAN PLATELET VOLUME (BEAKER) (test tlyt=762) 7.1 fL 6.5-10.5 NUCLEATED RED BLOOD CELLS (BEAKER) (test 0 /100 WBC 0-0 vpqf=543) 0.00CBC (HEMOGRAM ONLY)2016-07-29 07:39:00 Test Item Value Reference Range Comments WHITE BLOOD CELL COUNT (BEAKER) (test siox=729) 10.1 K/ L 4.0-10.0 RED BLOOD CELL COUNT (BEAKER) (test egou=219) 3.67 M/ L 4.20-5.80 HEMOGLOBIN (BEAKER) (test wpbn=118) 12.3 GM/DL 13.0-16.8 HEMATOCRIT (BEAKER) (test vfbn=185) 36.7 % 40.0-50.0 MEAN CORPUSCULAR VOLUME (BEAKER) (test gsaz=009) 100.0 fL 82.0-98.0 MEAN CORPUSCULAR HEMOGLOBIN (BEAKER) (test 33.7 pg 27.0-33.0 xbad=786) MEAN CORPUSCULAR HEMOGLOBIN CONC (BEAKER) (test 33.6 GM/DL 32.0-36.0 pxar=782) RED CELL DISTRIBUTION WIDTH (BEAKER) (test 13.5 % 10.3-14.2 xvhz=104) PLATELET COUNT (BEAKER) (test voax=390) 251 K/CU MM 150-430 MEAN PLATELET VOLUME (BEAKER) (test unam=823) 7.2 fL 6.5-10.5 NUCLEATED RED BLOOD CELLS (BEAKER) (test 0 /100 WBC 0-0 mjna=911) 0.00POCT-GLUCOSE [id number] 06:32:00 Test Item Value Reference Range Comments POC-GLUCOSE METER (BEAKER) 126 mg/dL 70-110 TESTED AT [facility] [address] (test dirk=8201) [facility] [id number] 06:01:00 Test Item Value Reference Range Comments PHOSPHORUS (BEAKER) (test jcce=187) 3.2 mg/dL 2.3-4.7 [id number] 06:01:00 Test Item Value Reference Range Comments MAGNESIUM (BEAKER) (test ljmy=891) 1.8 mg/dL 1.6-2.6 BASIC METABOLIC [id number] 06:01:00 Test Item Value Reference Range Comments SODIUM (BEAKER) (test 140 meq/L 136-145 boif=891) POTASSIUM (BEAKER) (test 4.2 meq/L 3.5-5.1 bawr=109) CHLORIDE (BEAKER) (test 111 meq/L 98-107 lizq=611) CO2 (BEAKER) (test 18 meq/L 22-29 emyu=448) BLOOD UREA NITROGEN 5 mg/dL 7-21 (BEAKER) (test ybcs=240) CREATININE (BEAKER) (test 0.72 mg/dL 0.57-1.25 kgat=359) GLUCOSE RANDOM (BEAKER) 119 mg/dL 70-105 (test mmoj=344) CALCIUM (BEAKER) (test 8.3 mg/dL 8.4-10.2 jznx=559) EGFR (BEAKER) (test 109 mL/min/1.73 sq m ESTIMATED GFR IS NOT miys=2680) ACCURATE CREATININE CLEARANCE IN PREDICTING GLOMERULAR FILTRATION RATE. ESTIMATED GFR IS NOT APPLICABLE FOR DIALYSIS PATIENTS. POCT-GLUCOSE [id number] 00:44:00 Test Item Value Reference Range Comments POC-GLUCOSE METER (BEAKER) 125 mg/dL 70-110 TESTED AT [facility] [address] (test cvxj=0413) [facility] [id number] BASIC METABOLIC [id number] 14:33:00 Test Item Value Reference Range Comments SODIUM (BEAKER) (test 140 meq/L 136-145 kysx=783) POTASSIUM (BEAKER) (test 4.7 meq/L 3.5-5.1 tzsx=276) CHLORIDE (BEAKER) (test 115 meq/L 98-107 efkh=901) CO2 (BEAKER) (test 18 meq/L 22-29 bjdi=584) BLOOD UREA NITROGEN 5 mg/dL 7-21 (BEAKER) (test zjic=792) CREATININE (BEAKER) (test 0.97 mg/dL 0.57-1.25 gnbc=566) GLUCOSE RANDOM (BEAKER) 129 mg/dL 70-105 (test cjnt=592) CALCIUM (BEAKER) (test 7.4 mg/dL 8.4-10.2 midn=982) EGFR (BEAKER) (test 77 mL/min/1.73 sq m ESTIMATED GFR IS NOT fyba=7541) ACCURATE CREATININE CLEARANCE IN PREDICTING GLOMERULAR FILTRATION RATE. ESTIMATED GFR IS NOT APPLICABLE FOR DIALYSIS PATIENTS. CBC (HEMOGRAM ONLY)[id number] 14:20:00 Test Item Value Reference Range Comments WHITE BLOOD CELL COUNT (BEAKER) (test diry=724) 7.7 K/ L 4.0-10.0 RED BLOOD CELL COUNT (BEAKER) (test dbyp=570) 3.34 M/ L 4.20-5.80 HEMOGLOBIN (BEAKER) (test svwe=262) 11.4 GM/DL 13.0-16.8 HEMATOCRIT (BEAKER) (test wuak=658) 33.5 % 40.0-50.0 MEAN CORPUSCULAR VOLUME (BEAKER) (test nupj=707) 100.0 fL 82.0-98.0 MEAN CORPUSCULAR HEMOGLOBIN (BEAKER) (test 34.1 pg 27.0-33.0 vyhk=840) MEAN CORPUSCULAR HEMOGLOBIN CONC (BEAKER) (test 33.9 GM/DL 32.0-36.0 atjf=533) RED CELL DISTRIBUTION WIDTH (BEAKER) (test 13.4 % 10.3-14.2 veaw=244) PLATELET COUNT (BEAKER) (test istd=014) 208 K/CU MM 150-430 MEAN PLATELET VOLUME (BEAKER) (test lfah=634) 6.7 fL 6.5-10.5 NUCLEATED RED BLOOD CELLS (BEAKER) (test 0 /100 WBC 0-0 qpdx=582) 0.00CALCIUM, [id number] 11:42:00 Test Item Value Reference Range Comments CALCIUM IONIZED (BEAKER) (test kikp=665) 1.02 mmol/L 1.12-1.27 PH, BLOOD (BEAKER) (test qvlb=6497) 7.30 BLOOD GAS, [id number] 11:41:00 Test Item Value Reference Range Comments PH ARTERIAL (BEAKER) (test psjd=853) 7.30 7.35-7.45 PCO2 ARTERIAL (BEAKER) (test vqeq=338) 38 mmHg 35-45 PO2 ARTERIAL (BEAKER) (test nfav=445) 138 mmHg 80-90 O2 SATURATION ARTERIAL (BEAKER) (test xdrc=542) 98.7 % 96.0-97.0 HCO3 ARTERIAL (BEAKER) (test jqef=371) 19 mmol/L 21-29 BASE EXCESS ARTERIAL (BEAKER) (test riam=773) -7.6 mmol/L -2.0-3.0 PATIENT TEMPERATURE (BEAKER) (test nzdf=2345) 35.0 C FIO2 (BEAKER) (test fxgx=6226) 50.0 % GLUCOSE-STAT [id number] 11:41:00 Test Item Value Reference Range Comments GLUCOSE RANDOM (BEAKER) (test aver=633) 127 mg/dL 70-110 HEMOGLOBIN-STAT [id number] 11:41:00 Test Item Value Reference Range Comments HEMOGLOBIN (BEAKER) (test negy=312) 10.8 g/dL 13.0-16.8 HEMATOCRIT-STAT [id number] 11:41:00 Test Item Value Reference Range Comments HEMATOCRIT (BEAKER) (test eyye=103) 32.0 % 40.0-50.0 SODIUM NA-STAT [id number] 11:40:00 Test Item Value Reference Range Comments SODIUM (BEAKER) (test rvpy=995) 139 meq/L 135-148 POTASSIUM-STAT [id number] 11:40:00 Test Item Value Reference Range Comments POTASSIUM (BEAKER) (test qbsi=489) 3.8 meq/L 3.6-5.5 CALCIUM, [id number] 09:40:00 Test Item Value Reference Range Comments CALCIUM IONIZED (BEAKER) (test ycpl=669) 1.03 mmol/L 1.12-1.27 PH, BLOOD (BEAKER) (test ldkm=1206) 7.29 SODIUM NA-STAT [id number] 09:31:00 Test Item Value Reference Range Comments SODIUM (BEAKER) (test kehm=296) 139 meq/L 135-148 BLOOD GAS, [id number] 09:31:00 Test Item Value Reference Range Comments PH ARTERIAL (BEAKER) (test jkip=570) 7.29 7.35-7.45 PCO2 ARTERIAL (BEAKER) (test migr=511) 41 mmHg 35-45 PO2 ARTERIAL (BEAKER) (test bxsk=163) 333 mmHg 80-90 O2 SATURATION ARTERIAL (BEAKER) (test zvla=582) 99.7 % 96.0-97.0 HCO3 ARTERIAL (BEAKER) (test yfxv=263) 19 mmol/L 21-29 BASE EXCESS ARTERIAL (BEAKER) (test amrn=749) -6.9 mmol/L -2.0-3.0 PATIENT TEMPERATURE (BEAKER) (test xvkw=8583) 37.0 C FIO2 (BEAKER) (test qhrd=9774) 21.0 % GLUCOSE-STAT [id number] 09:31:00 Test Item Value Reference Range Comments GLUCOSE RANDOM (BEAKER) (test kusl=339) 188 mg/dL 70-110 POTASSIUM-STAT [id number] 09:31:00 Test Item Value Reference Range Comments POTASSIUM (BEAKER) (test qyhm=823) 2.8 meq/L 3.6-5.5 HGB/HCT (H&H) - STAT [id number] 09:31:00 Test Item Value Reference Range Comments HEMOGLOBIN (BEAKER) (test juso=930) 13.0 g/dL 13.0-16.8 HEMATOCRIT (BEAKER) (test knjm=044) 38.0 % 40.0-50.0 [id number] 13:18:00 Test Item Value Reference Range Comments SODIUM (BEAKER) (test cwnu=411) 142 meq/L 136-145 POTASSIUM (BEAKER) (test bnyd=340) 4.1 meq/L 3.5-5.1 CHLORIDE (BEAKER) (test sppl=886) 107 meq/L 98-107 CO2 (BEAKER) (test csyg=704) 26 meq/L 22-29 BUN AND [id number] 13:04:00 Test Item Value Reference Range Comments BLOOD UREA NITROGEN 6 mg/dL 7-21 (BEAKER) (test qtao=127) CREATININE (BEAKER) (test 0.74 mg/dL 0.57-1.25 ewbm=433) EGFR (BEAKER) (test 105 mL/min/1.73 sq m ESTIMATED GFR IS NOT xmfj=2068) ACCURATE CREATININE CLEARANCE IN PREDICTING GLOMERULAR FILTRATION RATE. ESTIMATED GFR IS NOT APPLICABLE FOR DIALYSIS PATIENTS. [id number] 12:55:00 Test Item Value Reference Range Comments HEMOGLOBIN (BEAKER) (test nvma=136) 14.9 GM/DL 13.0-16.8 PLATELET [id number] 12:55:00 Test Item Value Reference Range Comments PLATELET COUNT (BEAKER) (test ekvo=573) 269 K/CU MM 150-430 CARCINOEMBRYONIC ANTIGEN (CEA)2016-07-01 13:05:00 Test Item Value Reference Range Comments CARCINOEMBRYONIC ANTIGEN (BEAKER) (test esst=828) 6.7 ng/mL 0.0-5.0 BASIC METABOLIC [id number] 05:12:00 Test Item Value Reference Range Comments SODIUM (BEAKER) (test 143 meq/L 136-145 sdgb=061) POTASSIUM (BEAKER) (test 3.6 meq/L 3.5-5.1 Specimen slightly vnsf=557) hemolyzed CHLORIDE (BEAKER) (test 115 meq/L 98-107 tkhr=959) CO2 (BEAKER) (test 19 meq/L 22-29 flkm=790) BLOOD UREA NITROGEN 5 mg/dL 7-21 (BEAKER) (test xfvj=795) CREATININE (BEAKER) (test 0.60 mg/dL 0.57-1.25 Specimen slightly kdru=003) hemolyzed GLUCOSE RANDOM (BEAKER) 89 mg/dL 70-105 (test kcyk=675) CALCIUM (BEAKER) (test 8.1 mg/dL 8.4-10.2 pcmo=301) EGFR (BEAKER) (test 134 mL/min/1.73 sq m ESTIMATED GFR IS NOT vnix=8114) ACCURATE CREATININE CLEARANCE IN PREDICTING GLOMERULAR FILTRATION RATE. ESTIMATED GFR IS NOT APPLICABLE FOR DIALYSIS PATIENTS. HEPATIC FUNCTION [id number] 05:12:00 Test Item Value Reference Range Comments TOTAL PROTEIN (BEAKER) (test 5.8 gm/dL 6.0-8.3 Specimen slightly hemolyzed ixbi=201) ALBUMIN (BEAKER) (test 3.0 g/dL 3.5-5.0 Specimen slightly hemolyzed whgn=6039) BILIRUBIN TOTAL (BEAKER) (test 0.4 mg/dL 0.2-1.2 Specimen slightly hemolyzed lydq=480) BILIRUBIN DIRECT (BEAKER) (test 0.2 mg/dL 0.1-0.5 Specimen slightly hemolyzed jkrx=098) ALKALINE PHOSPHATASE (BEAKER) 233 U/L 40-150 (test kuhj=179) AST (SGOT) (BEAKER) (test 52 U/L 5-34 Specimen slightly hemolyzed lzkp=820) ALT (SGPT) (BEAKER) (test 33 U/L 6-55 Specimen slightly hemolyzed asgj=512) CBC W/PLT COUNT & AUTO [id number] 06:06:00 Test Item Value Reference Range Comments WHITE BLOOD CELL COUNT (BEAKER) (test yilc=693) 4.2 K/ L 4.0-10.0 RED BLOOD CELL COUNT (BEAKER) (test ijsu=711) 4.02 M/ L 4.20-5.80 HEMOGLOBIN (BEAKER) (test hcka=407) 13.3 GM/DL 13.0-16.8 HEMATOCRIT (BEAKER) (test zlkg=412) 39.1 % 40.0-50.0 MEAN CORPUSCULAR VOLUME (BEAKER) (test vykt=483) 97.2 fL 82.0-98.0 MEAN CORPUSCULAR HEMOGLOBIN (BEAKER) (test 33.0 pg 27.0-33.0 vril=102) MEAN CORPUSCULAR HEMOGLOBIN CONC (BEAKER) (test 34.0 GM/DL 32.0-36.0 uoxq=173) RED CELL DISTRIBUTION WIDTH (BEAKER) (test 13.9 % 10.3-14.2 lmah=091) PLATELET COUNT (BEAKER) (test sktb=101) 215 K/CU MM 150-430 MEAN PLATELET VOLUME (BEAKER) (test nsnj=069) 8.0 fL 6.5-10.5 NUCLEATED RED BLOOD CELLS (BEAKER) (test 0 /100 WBC 0-0 rjle=363) NEUTROPHILS RELATIVE PERCENT (BEAKER) (test 48 % ogoo=471) LYMPHOCYTES RELATIVE PERCENT (BEAKER) (test 41 % wcfp=931) MONOCYTES RELATIVE PERCENT (BEAKER) (test 9 % ancs=686) EOSINOPHILS RELATIVE PERCENT (BEAKER) (test 1 % rscu=477) BASOPHILS RELATIVE PERCENT (BEAKER) (test 0 % tspr=007) NEUTROPHILS ABSOLUTE COUNT (BEAKER) (test 2.04 K/ L 1.80-8.00 ncsi=260) LYMPHOCYTES ABSOLUTE COUNT (BEAKER) (test 1.75 K/ L 1.48-4.50 htjk=566) MONOCYTES ABSOLUTE COUNT (BEAKER) (test 0.37 K/ L 0.00-1.30 jpvq=262) EOSINOPHILS ABSOLUTE COUNT (BEAKER) (test 0.05 K/ L 0.00-0.50 bjom=887) BASOPHILS ABSOLUTE COUNT (BEAKER) (test 0.01 K/ L 0.00-0.20 fznt=486) 0.00HEPATIC FUNCTION [id number] 05:37:00 Test Item Value Reference Range Comments TOTAL PROTEIN (BEAKER) (test aenb=478) 5.8 gm/dL 6.0-8.3 ALBUMIN (BEAKER) (test kden=4449) 3.1 g/dL 3.5-5.0 BILIRUBIN TOTAL (BEAKER) (test htwn=598) 0.4 mg/dL 0.2-1.2 BILIRUBIN DIRECT (BEAKER) (test hfvq=532) 0.2 mg/dL 0.1-0.5 ALKALINE PHOSPHATASE (BEAKER) (test dgnc=735) 242 U/L 40-150 AST (SGOT) (BEAKER) (test wabb=647) 40 U/L 5-34 ALT (SGPT) (BEAKER) (test ykdn=540) 24 U/L 6-55 BASIC METABOLIC [id number] 05:37:00 Test Item Value Reference Range Comments SODIUM (BEAKER) (test 145 meq/L 136-145 scms=009) POTASSIUM (BEAKER) (test 3.6 meq/L 3.5-5.1 zlfm=436) CHLORIDE (BEAKER) (test 117 meq/L 98-107 ionp=770) CO2 (BEAKER) (test 18 meq/L 22-29 xyhf=326) BLOOD UREA NITROGEN 3 mg/dL 7-21 (BEAKER) (test xqhq=801) CREATININE (BEAKER) (test 0.62 mg/dL 0.57-1.25 ebme=912) GLUCOSE RANDOM (BEAKER) 89 mg/dL 70-105 (test xdcp=347) CALCIUM (BEAKER) (test 8.3 mg/dL 8.4-10.2 rrmz=563) EGFR (BEAKER) (test 129 mL/min/1.73 sq m ESTIMATED GFR IS NOT avjg=8988) ACCURATE CREATININE CLEARANCE IN PREDICTING GLOMERULAR FILTRATION RATE. ESTIMATED GFR IS NOT APPLICABLE FOR DIALYSIS PATIENTS. PROTHROMBIN [id number] 05:08:00 Test Item Value Reference Range Comments PROTIME (BEAKER) (test swdf=978) 14.3 seconds 11.7-14.7 INR (BEAKER) (test cujg=415) 1.1 <=5.9 RECOMMENDED COUMADIN/WARFARIN INR THERAPY RANGESSTANDARD DOSE: 2.0 - 3.0 Includes: PROPHYLAXIS forvenous thrombosis, systemic embolization; TREATMENT for venous thrombosis and/or pulmonary embolus.HIGH RISK: Target INR is 2.5-3.5 for patients with mechanical heart valves.[id number] 22:22:00 Test Item Value Reference Range Comments MAGNESIUM (BEAKER) (test qyzm=823) 1.9 mg/dL 1.6-2.6 BASIC METABOLIC [id number] 22:21:00 Test Item Value Reference Range Comments SODIUM (BEAKER) (test 142 meq/L 136-145 vuvn=858) POTASSIUM (BEAKER) (test 3.7 meq/L 3.5-5.1 joba=194) CHLORIDE (BEAKER) (test 115 meq/L 98-107 hlha=777) CO2 (BEAKER) (test 17 meq/L 22-29 geot=092) BLOOD UREA NITROGEN 3 mg/dL 7-21 (BEAKER) (test zqkp=709) CREATININE (BEAKER) (test 0.65 mg/dL 0.57-1.25 tksr=460) GLUCOSE RANDOM (BEAKER) 99 mg/dL 70-105 (test poww=727) CALCIUM (BEAKER) (test 8.6 mg/dL 8.4-10.2 rfpy=213) EGFR (BEAKER) (test 122 mL/min/1.73 sq m ESTIMATED GFR IS NOT lqkz=4754) ACCURATE CREATININE CLEARANCE IN PREDICTING GLOMERULAR FILTRATION RATE. ESTIMATED GFR IS NOT APPLICABLE FOR DIALYSIS PATIENTS. POCT-GLUCOSE [id number] 12:33:00 Test Item Value Reference Range Comments POC-GLUCOSE METER (BEAKER) 101 mg/dL 70-110 TESTED AT [facility] [address] (test ibcf=7069) [place] [id number] POCT-GLUCOSE [id number] 08:42:00 Test Item Value Reference Range Comments POC-GLUCOSE METER (BEAKER) 97 mg/dL 70-110 TESTED AT [facility] [address] (test bpxl=1936) [facility] [id number] [id number] 06:55:00 Test Item Value Reference Range Comments FERRITIN (BEAKER) (test xowv=137) 129 ng/mL 5-275 Effective 03/20/2014: Reference Range ChangeNew: Male 5-275 Previous: Male 22-322 Female 5-275 Female 10-291IRON, TIBC, % SAT. ( WITHOUT FERRITIN)2016-06-28 06:31:00 Test Item Value Reference Range Comments IRON (BEAKER) (test pvhc=586) 54 ug/dL 40-160 TOTAL IRON BINDING CAPACITY (BEAKER) (test 213 ug/dL 250-450 hpgz=667) IRON % SATURATION (2) (BEAKER) (test rozy=2146) 25 % 20-55 BASIC METABOLIC [id number] 06:11:00 Test Item Value Reference Range Comments SODIUM (BEAKER) (test 138 meq/L 136-145 xuod=998) POTASSIUM (BEAKER) (test 3.0 meq/L 3.5-5.1 bllw=525) CHLORIDE (BEAKER) (test 109 meq/L 98-107 tung=877) CO2 (BEAKER) (test 19 meq/L 22-29 hgpg=694) BLOOD UREA NITROGEN 5 mg/dL 7-21 (BEAKER) (test zkbl=969) CREATININE (BEAKER) (test 0.65 mg/dL 0.57-1.25 nrgp=398) GLUCOSE RANDOM (BEAKER) 113 mg/dL 70-105 (test pcxt=935) CALCIUM (BEAKER) (test 7.8 mg/dL 8.4-10.2 xqxn=055) EGFR (BEAKER) (test 122 mL/min/1.73 sq m ESTIMATED GFR IS NOT fsji=4568) ACCURATE CREATININE CLEARANCE IN PREDICTING GLOMERULAR FILTRATION RATE. ESTIMATED GFR IS NOT APPLICABLE FOR DIALYSIS PATIENTS. HEPATIC FUNCTION [id number] 06:10:00 Test Item Value Reference Range Comments TOTAL PROTEIN (BEAKER) (test jkdi=007) 5.4 gm/dL 6.0-8.3 ALBUMIN (BEAKER) (test bgpx=6708) 3.0 g/dL 3.5-5.0 BILIRUBIN TOTAL (BEAKER) (test lnov=399) 0.3 mg/dL 0.2-1.2 BILIRUBIN DIRECT (BEAKER) (test axgm=415) 0.2 mg/dL 0.1-0.5 ALKALINE PHOSPHATASE (BEAKER) (test pwpa=334) 189 U/L 40-150 AST (SGOT) (BEAKER) (test gbrn=178) 32 U/L 5-34 ALT (SGPT) (BEAKER) (test ikfs=404) 22 U/L 6-55 BASIC METABOLIC [id number] 00:12:00 Test Item Value Reference Range Comments SODIUM (BEAKER) (test 139 meq/L 136-145 ovao=127) POTASSIUM (BEAKER) (test 3.1 meq/L 3.5-5.1 ayxv=715) CHLORIDE (BEAKER) (test 110 meq/L 98-107 clzw=888) CO2 (BEAKER) (test 21 meq/L 22-29 gaij=932) BLOOD UREA NITROGEN 6 mg/dL 7-21 (BEAKER) (test uvvc=123) CREATININE (BEAKER) (test 0.70 mg/dL 0.57-1.25 rhsa=837) GLUCOSE RANDOM (BEAKER) 124 mg/dL 70-105 (test jwdj=766) CALCIUM (BEAKER) (test 8.0 mg/dL 8.4-10.2 iqed=158) EGFR (BEAKER) (test 112 mL/min/1.73 sq m ESTIMATED GFR IS NOT fgjg=4472) ACCURATE CREATININE CLEARANCE IN PREDICTING GLOMERULAR FILTRATION RATE. ESTIMATED GFR IS NOT APPLICABLE FOR DIALYSIS PATIENTS. Needed for ADELE CT SCANCBC W/PLT COUNT & AUTO [id number] 23:55: 00 Test Item Value Reference Range Comments WHITE BLOOD CELL COUNT (BEAKER) (test xrrx=996) 4.4 K/ L 4.0-10.0 RED BLOOD CELL COUNT (BEAKER) (test wloe=553) 3.97 M/ L 4.20-5.80 HEMOGLOBIN (BEAKER) (test lhoa=794) 13.6 GM/DL 13.0-16.8 HEMATOCRIT (BEAKER) (test iizt=725) 38.2 % 40.0-50.0 MEAN CORPUSCULAR VOLUME (BEAKER) (test ypqo=344) 96.3 fL 82.0-98.0 MEAN CORPUSCULAR HEMOGLOBIN (BEAKER) (test 34.3 pg 27.0-33.0 dyym=386) MEAN CORPUSCULAR HEMOGLOBIN CONC (BEAKER) (test 35.6 GM/DL 32.0-36.0 vqxx=488) RED CELL DISTRIBUTION WIDTH (BEAKER) (test 12.7 % 10.3-14.2 gbbg=304) PLATELET COUNT (BEAKER) (test fsgl=091) 165 K/CU MM 150-430 MEAN PLATELET VOLUME (BEAKER) (test zbrm=191) 7.5 fL 6.5-10.5 NUCLEATED RED BLOOD CELLS (BEAKER) (test 0 /100 WBC 0-0 xtsp=134) NEUTROPHILS RELATIVE PERCENT (BEAKER) (test 58 % roei=624) LYMPHOCYTES RELATIVE PERCENT (BEAKER) (test 34 % vjwd=562) MONOCYTES RELATIVE PERCENT (BEAKER) (test 7 % zodo=645) EOSINOPHILS RELATIVE PERCENT (BEAKER) (test 1 % xlni=758) BASOPHILS RELATIVE PERCENT (BEAKER) (test 0 % mpja=432) NEUTROPHILS ABSOLUTE COUNT (BEAKER) (test 2.54 K/ L 1.80-8.00 fcik=500) LYMPHOCYTES ABSOLUTE COUNT (BEAKER) (test 1.47 K/ L 1.48-4.50 ahur=162) MONOCYTES ABSOLUTE COUNT (BEAKER) (test 0.32 K/ L 0.00-1.30 lcgq=193) EOSINOPHILS ABSOLUTE COUNT (BEAKER) (test 0.03 K/ L 0.00-0.50 sryh=369) BASOPHILS ABSOLUTE COUNT (BEAKER) (test 0.00 K/ L 0.00-0.20 qxmt=563) 0.00
--- NOTE | 2018-06-06 18:44 | RAD REPORT ---
EXAM DESCRIPTION: Tito Single View06/06/2018 6:31 pm CLINICAL HISTORY: Shortness of breath COMPARISON: 2017 FINDINGS: The lungs appear clear of acute infiltrate. The heart is normal size IMPRESSION: No acute abnormalities displayed
[2018-06-06 19:56] LABS: Protime INR 1.05
[2018-06-06 19:57] LABS: Absolute Lymphocytes (CBC) 1.4 K/uL (0.7-4.9); Absolute Monocytes 0.5 K/uL (0.1-1.3); Absolute Neutrophil 3.9 K/uL (1.8-8.0); Basophils % 0.9 % (0-1.3); Eosinophils % 3.2 % (0-4.4); Hematocrit 42.4 % (39.6-49.0); Lymphocytes % 23.3 % (15.3-44.8); MPV 8.3 fL (7.6-11.3); Monocytes % 8.7 % (3.3-12.3); RBC Red Blood Cell Count 4.19 M/uL (4.33-5.43)
[2018-06-06] MEDS ORDERED: METRONIDAZOLE 500mg IVPB 500 MG/100 ML BAG IV ONE (20:03)
[2018-06-06] MEDS ORDERED: CIPROFLOXACIN 400mg IV 400 MG/200 ML BAG IV ONE (20:03)
[2018-06-06] MEDS ORDERED: NA CHLORIDE 0.9% 1,000 ML ONE (20:03)
[2018-06-06 20:12] LABS: ALT/SGPT 23 U/L (12-78); AST/SGOT 16 U/L (15-37); Albumin 3.5 g/dL (3.4-5.0); Alkaline Phosphatase 131 U/L (45-117); BUN Blood Urea Nitrogen 19 mg/dL (7-18); Bicarbonate 28 mmol/L (21-32); Bilirubin Direct 0.2 mg/dL (0-0.2); Bilirubin Total 0.6 mg/dL (0.2-1.0); Glucose Level 96 mg/dL (74-106); Lipase 90 U/L (73-393); Magnesium 2.3 mg/dL (1.8-2.4); NT PRO-BNP 57 pg/mL (<125); Protein, Total 6.8 g/dL (6.4-8.2); Sodium Level 140 mmol/L (136-145); Troponin (Emerg Dept Use Only) < 0.02 ng/mL (0.0-0.045)
--- NOTE | 2018-06-06 21:05 | RAD REPORT ---
EXAM DESCRIPTION: CT - Abdomen Pelvis W Contrast - 06/06/2018 8:54 pm CLINICAL HISTORY: Abdominal pain. COMPARISON: January 2018 TECHNIQUE: Computed axial tomography of the abdomen and pelvis was obtained. 100 cc Isovue-300 is ad ministered intravenously. Oral contrast was given. All CT scans are performed using dose optimization technique as appropriate and may include automated exposure control or mA/KV adjustment according to patient size. FINDINGS: The liver, spleen, pancreas, and adrenals appear unremarkable. Small renal cysts are present. Postsurgical changes of a right hemicolectomy are seen. There is no evidence of diverticulitis. No ascites is noted. No omental/mesenteric nodules are seen. The prostate gland is mildly to moderately enlarged. IMPRESSION: No acute abnormality is displayed
--- NOTE | 2018-06-06 21:26 | ER ---
Nurse's Notes [facility] Name: Xiang Ocampo Age: 72 yrs Sex: Male : 1945 Arrival Date: 06/06/2018 Time: 16:03 Bed 7 Private MD: J Carlos Costello Diagnosis: Unspecified abdominal pain;Abdominal tenderness Presentation: 06/06 16:03 Presenting complaint: Patient states: [place] had some cough and shortness of breath over hb the last night and I just cant catch my breath. Transition of care: patient was not received from another setting of care. Onset of symptoms was June 06, 2018. Risk Assessment: Do you want to hurt yourself or someone else? Patient reports no desire to harm self or others. Initial Sepsis Screen: Does the patient meet any 2 criteria? No. Patient's initial sepsis screen is negative. Does the patient have a suspected source of infection? No. Patient's initial sepsis screen is negative. Care prior to arrival: None. 16:03 Method Of Arrival: Ambulatory 16:03 Acuity: MIKE 3 sg 16:18 Note pt reports having abd pain, seen by PCP and sent to the ED to rule out an sg appendicitis. 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 - Social history:: Smoking status: Patient/guardian denies using tobacco. - Ebola Screening: : No symptoms or risks identified at this time. Screenin:00 Abuse screen: Denies threats or abuse. Denies injuries from another. Nutritional bp screening: No deficits noted. Tuberculosis screening: No symptoms or risk factors identified. Fall Risk None identified. Assessment: 18:00 General: Appears in no apparent distress. comfortable, Behavior is calm, cooperative, bp appropriate for age. Pain: Complains of pain in left lower quadrant and right lower quadrant. Neuro: Level of Consciousness is awake, alert, obeys commands, Oriented to person, place, time, situation, Appropriate for age. Cardiovascular: No deficits noted. Respiratory: Airway is patent Respiratory effort is even, Breath sounds with wheezes bilaterally. GI: Abdomen is non-distended, Mass noted in right lower quadrant. : No signs and/or symptoms were reported regarding the genitourinary system. EENT: No deficits noted. Derm: No deficits noted. Musculoskeletal: Circulation, motion, and sensation intact. Range of motion: intact in all extremities. 19:49 Reassessment: Patient appears in no apparent distress at this time. No changes from ak1 previously documented assessment. Patient and/or family updated on plan of care and expected duration. Pain level reassessed. Patient is alert, oriented x 3, equal unlabored respirations, skin warm/dry/pink. Lab at bedside for recollect. 21:07 Reassessment: Patient appears in no apparent distress at this time. No changes from ak1 previously documented assessment. Patient and/or family updated on plan of care and expected duration. Pain level reassessed. Patient is alert, oriented x 3, equal unlabored respirations, skin warm/dry/pink. pt resting comfortably with family at bedside. pt and family updated on estimated time for CT results and lab results. 22:10 Reassessment: Patient appears in no apparent distress at this time. No changes from ak1 previously documented assessment. Patient and/or family updated on plan of care and expected duration. Pain level reassessed. Patient is alert, oriented x 3, equal unlabored respirations, skin warm/dry/pink. pt and family informed of admission. 23:10 Reassessment: Patient appears in no apparent distress at this time. No changes from ak1 previously documented assessment. Patient and/or family updated on plan of care and expected duration. Pain level reassessed. Patient is alert, oriented x 3, equal unlabored respirations, skin warm/dry/pink. Patient states feeling better. Patient states symptoms have improved. 06/07 00:04 Reassessment: dean stated she would collect urine upstairs. ak1 Vital Signs: 06/06 16:19 BP 113 / 63; Pulse 107; Resp 17; Temp 98.2; Pulse Ox 95% on R/A; Weight 79.38 kg; Pain sg 6/10; 20:26 BP 111 / 66; Pulse 77; Resp 17; Temp 98.3; Pulse Ox 96% on R/A; ak1 22:11 BP 121 / 68; Pulse 74; Resp 18; Temp 98.3; Pulse Ox 96% on R/A; ak1 23:33 BP 119 / 67; Pulse 72; Resp 16; Temp 98.4; Pulse Ox 96% on R/A; ak1 ED Course: 16:03 Patient arrived in ED. sb2 16:03 J Carlos Costello DO is Private Physician. sb2 16:04 Triage completed. hb 18:02 Thuan Mcdaniel, RN is Primary Nurse. bp 18:04 Jonel Jay MD is Attending Physician. andreina 18:31 XRAY Chest (1 view) In Process Unspecified. EDMS 18:45 Inserted saline lock: 20 gauge in right antecubital area, using aseptic technique. bp Blood collected. 18:48 EKG done, by ED staff, reviewed by Jonel Jay MD. em1 19:00 Patient has correct armband on for positive identification. Placed in gown. Bed in low bp position. Call light in reach. Side rails up X2. Adult w/ patient. 19:06 Arm band placed on. bp 19:14 Primary Nurse role handed off by Thuan Mcdaniel, FELIBERTO ak1 19:14 Luz Gill RN is Primary Nurse. ak1 20:[address] via wheelchair. vr 20:56 CT Abd/Pelvis - W/Contrast In Process Unspecified. EDMS 21:22 Aura Kiser MD is Hospitalizing Provider. andreina 22:11 No provider procedures requiring assistance completed. Patient admitted, IV remains in ak1 place. Administered Medications: 20:03 Drug: NS 0.9% 500 ml Route: IV; Rate: bolus; Site: right antecubital; ak1 20:34 Follow up: IV Status: Completed infusion; IV Intake: 500ml ak1 20:04 Drug: Cipro 400 mg Volume: 200 ml; Route: IVPB; Infused Over: 60 mins; Site: right ak1 antecubital; 20:34 Follow up: IV Pause: 06/06/2018 20:34; IV Pause Reason: Patient to CT ak1 21:06 Follow up: IV Resume: 06/06/2018 21:06; IV Resume Reason: Patient returned from CT ak1 21:37 Follow up: IV Status: Completed infusion; IV Intake: 200ml ak1 20:04 Drug: Flagyl 500 mg Volume: 100 ml; Route: IVPB; Rate: 200 ml/hr; Infused Over: 30 ak1 mins; Site: right antecubital; 20:34 Follow up: IV Status: Completed infusion; IV Intake: 100ml ak1 20:30 Drug: NS 0.9% 1000 ml Route: IV; Rate: 75 ml/hr; Site: right antecubital; ak1 20:35 Follow up: IV Pause: 06/06/2018 20:35; IV Pause Reason: Patient to CT ak1 21:06 Follow up: IV Resume: 06/06/2018 21:06; IV Resume Reason: Patient returned from CT ak1 06/07 00:01 Follow up: IV Status: Infusion continued upon admission ak1 00:04 Not Given (Patient Refused): morphine 4 mg IVP once ak1 00:04 Not Given (Patient Refused): Zofran 4 mg IVP once; over 2 minutes ak1 Intake: 06/06 20:34 IV: 100ml; Total: 100ml. ak1 20:34 IV: 500ml; Total: 600ml. ak1 21:37 IV: 200ml; Total: 800ml. ak1 Outcome: 21:25 Decision to Hospitalize by Provider. andreina 22:11 Condition: stable ak1 22:11 Instructed on the need for admit. 06/07 00:02 Admitted to Med/surg accompanied by tech, via stretcher, room 223, with chart, Report ak1 called to [place] nurse for 223 01:18 Patient left the ED. ed1 Signatures: Dispatcher [employer] EDMS Tim Moore, RN RN Jonel Quintanilla MD MD cha Martinez, Eric em1 Melia De Jesus RN RN ed1 Macarena Avila Amber, RN RN ak1 Kinsey Bear RN RN hb Peltier, Brian, Yeni Naik RN sb2 Corrections: (The following items were deleted from the chart) 06/06 16:20 16:03 Acuity: MIKE 4 hb sg
--- NOTE | 2018-06-06 21:26 | EDPHYS ---
Physician Documentation [facility] Name: Xiang Ocampo Age: 72 yrs Sex: Male : 1945 Arrival Date: 06/06/2018 Time: 16:03 Bed 7 Private MD: J Carlos Costello ED Physician Jonel Jay HPI: 06/06 18:41 This 72 yrs old Male presents to ER via Ambulatory with complaints of andreina Shortness Of Breath. 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 - Social history:: Smoking status: Patient/guardian denies using tobacco. - Ebola Screening: : No symptoms or risks identified at this time. ROS: 18:43 Constitutional: Negative for fever, chills, and weight loss, Eyes: Negative for injury, andreina pain, redness, and discharge, ENT: Negative for injury, pain, and discharge, Neck: Negative for injury, pain, and swelling, Cardiovascular: Negative for chest pain, palpitations, and edema, Respiratory: Negative for shortness of breath, cough, wheezing, and pleuritic chest pain, Back: Negative for injury and pain, : Negative for injury, bleeding, discharge, and swelling, MS/Extremity: Negative for injury and deformity, Skin: Negative for injury, rash, and discoloration, Neuro: Negative for headache, weakness, numbness, tingling, and seizure, Psych: Negative for depression, anxiety, suicide ideation, homicidal ideation, and hallucinations, Allergy/Immunology: Negative for hives, rash, and allergies, Endocrine: Negative for neck swelling, polydipsia, polyuria, polyphagia, and marked weight changes, Hematologic/Lymphatic: Negative for swollen nodes, abnormal bleeding, and unusual bruising. 18:43 Abdomen/GI: Positive for abdominal pain, of the right lower quadrant and left lower quadrant. Exam: 18:43 Constitutional: This is a well developed, well nourished patient who is awake, alert, andreina and in no acute distress. Head/Face: Normocephalic, atraumatic. Eyes: Pupils equal round and reactive to light, extra-ocular motions intact. Lids and lashes normal. Conjunctiva and sclera are non-icteric and not injected. Cornea within normal limits. Periorbital areas with no swelling, redness, or edema. ENT: Nares patent. No nasal discharge, no septal abnormalities noted. Tympanic membranes are normal and external auditory canals are clear. Oropharynx with no redness, swelling, or masses, exudates, or evidence of obstruction, uvula midline. Mucous membranes moist. Neck: Trachea midline, no thyromegaly or masses palpated, and no cervical lymphadenopathy. Supple, full range of motion without nuchal rigidity, or vertebral point tenderness. No Meningismus. Chest/axilla: Normal chest wall appearance and motion. Nontender with no deformity. No lesions are appreciated. Cardiovascular: Regular rate and rhythm with a normal S1 and S2. No gallops, murmurs, or rubs. Normal PMI, no JVD. No pulse deficits. Respiratory: Lungs have equal breath sounds bilaterally, clear to auscultation and percussion. No rales, rhonchi or wheezes noted. No increased work of breathing, no retractions or nasal flaring. Back: No spinal tenderness. No costovertebral tenderness. Full range of motion. Male : Normal genitalia with no discharge or lesions. Skin: Warm, dry with normal turgor. Normal color with no rashes, no lesions, and no evidence of cellulitis. MS/ Extremity: Pulses equal, no cyanosis. Neurovascular intact. Full, normal range of motion. Neuro: Awake and alert, GCS 15, oriented to person, place, time, and situation. Cranial nerves II-XII grossly intact. Motor strength 5/5 in all extremities. Sensory grossly intact. Cerebellar exam normal. Normal gait. Psych: Awake, alert, with orientation to person, place and time. Behavior, mood, and affect are within normal limits. 18:43 Abdomen/GI: Inspection: abdomen appears normal, Bowel sounds: normal, Palpation: moderate abdominal tenderness, Liver: no appreciated palpable abnormalities, Hernia: not appreciated. Vital Signs: 16:19 BP 113 / 63; Pulse 107; Resp 17; Temp 98.2; Pulse Ox 95% on R/A; Weight 79.38 kg; Pain sg 6/10; 20:26 BP 111 / 66; Pulse 77; Resp 17; Temp 98.3; Pulse Ox 96% on R/A; ak1 22:11 BP 121 / 68; Pulse 74; Resp 18; Temp 98.3; Pulse Ox 96% on R/A; ak1 23:33 BP 119 / 67; Pulse 72; Resp 16; Temp 98.4; Pulse Ox 96% on R/A; ak1 MDM: 18:04 Patient medically screened. [facility] 18:44 Data reviewed: vital signs, nurses notes, lab test result(s), EKG, radiologic studies, [facility] CT scan, plain films. 06/06 18:05 Order name: Basic Metabolic Panel; Complete Time: 20:18 [facility] 06/06 18:05 Order name: CBC with Diff; Complete Time: 20:18 [facility] 06/06 18:05 Order name: LFT's; Complete Time: 20:18 [facility] 06/06 18:05 Order name: Magnesium; Complete Time: 20:18 [facility] 06/06 18:05 Order name: NT PRO-BNP; Complete Time: 20:18 [facility] 06/06 18:05 Order name: PT-INR; Complete Time: 20:18 [facility] 06/06 18:05 Order name: Troponin (emerg Dept Use Only); Complete Time: 20:18 [facility] 06/06 18:05 Order name: XRAY Chest (1 view); Complete Time: 20:18 [facility] 06/06 18:05 Order name: Blood Culture Adult (2) [facility] 06/06 18:05 Order name: Lipase; Complete Time: 20:18 [facility] 06/06 18:05 Order name: Urine Culture [facility] 06/06 18:41 Order name: CT Abd/Pelvis - W/Contrast; Complete Time: 21:13 [facility] 06/06 18:05 Order name: EKG; Complete Time: 18:07 [facility] 06/06 18:05 Order name: Cardiac monitoring; Complete Time: 19:10 [facility] 06/06 18:05 Order name: EKG - Nurse/Tech; Complete Time: 18:48 [facility] 06/06 18:05 Order name: IV Saline Lock; Complete Time: 19:10 [facility] 06/06 18:05 Order name: Labs collected and sent; Complete Time: 19:10 [facility] 06/06 18:05 Order name: O2 Per Protocol; Complete Time: 19:10 [facility] 06/06 18:05 Order name: O2 Sat Monitoring; Complete Time: 19:10 [facility] Administered Medications: 20:03 Drug: NS 0.9% 500 ml Route: IV; Rate: bolus; Site: right antecubital; ak1 20:34 Follow up: IV Status: Completed infusion; IV Intake: 500ml ak1 20:04 Drug: Cipro 400 mg Volume: 200 ml; Route: IVPB; Infused Over: 60 mins; Site: right ak1 antecubital; 20:34 Follow up: IV Pause: 06/06/2018 20:34; IV Pause Reason: Patient to CT ak1 21:06 Follow up: IV Resume: 06/06/2018 21:06; IV Resume Reason: Patient returned from CT ak1 21:37 Follow up: IV Status: Completed infusion; IV Intake: 200ml ak1 20:04 Drug: Flagyl 500 mg Volume: 100 ml; Route: IVPB; Rate: 200 ml/hr; Infused Over: 30 ak1 mins; Site: right antecubital; 20:34 Follow up: IV Status: Completed infusion; IV Intake: 100ml ak1 20:30 Drug: NS 0.9% 1000 ml Route: IV; Rate: 75 ml/hr; Site: right antecubital; ak1 20:35 Follow up: IV Pause: 06/06/2018 20:35; IV Pause Reason: Patient to CT ak1 21:06 Follow up: IV Resume: 06/06/2018 21:06; IV Resume Reason: Patient returned from CT ak1 06/07 00:01 Follow up: IV Status: Infusion continued upon admission ak1 00:04 Not Given (Patient Refused): morphine 4 mg IVP once ak1 00:04 Not Given (Patient Refused): Zofran 4 mg IVP once; over 2 minutes ak1 Disposition: 06/06/18 21:25 Hospitalization ordered by Aura Kiser for Observation. Preliminary diagnosis are Unspecified abdominal pain, Abdominal tenderness. - Bed requested for Telemetry/MedSurg (observation). - Status is Observation. ed1 - Condition is Fair. - Problem is new. - Symptoms have improved. UTI on Admission? No Signatures: Dispatcher [employer] EDMS Bettina Quiroga RN RN mw Gay, Steven, RN RN sg Anderson, Corey, MD MD cha Riggs, Erika, RN RN ed1 Luz Gill RN RN ak1 Corrections: (The following items were deleted from the chart) 02/04 23:17 21:25 Hospitalization Ordered by Aura Kiser MD for Observation. Preliminary mw diagnosis is Unspecified abdominal pain; Abdominal tenderness. Bed requested for Telemetry/MedSurg (observation). Status is Observation. Condition is Fair. Problem is new. Symptoms have improved. UTI on Admission? No. andreina 06/07 01:18 06/06 23:17 06/06/2018 21:25 Hospitalization Ordered by Aura Kiser MD for ed1 Observation. Preliminary diagnosis is Unspecified abdominal pain; Abdominal tenderness. Bed requested for Telemetry/MedSurg (observation). Status is Observation. Condition is Fair. Problem is new. Symptoms have improved. UTI on Admission? No. mw
--- NOTE | 2018-06-06 23:32 | P.HP ---
Certification for Inpatient Patient admitted to: Observation With expected LOS: <2 Midnights Practitioner: I am a practitioner with admitting privileges, knowledge of patient current condition, hospital course, and medical plan of care. Services: Services provided to patient in accordance with Admission requirements found in Title 42 Section 412.3 of the Code of Federal Regulations Patient History Date of Service: 06/06/18 Reason for admission: abdominal pain, N/V History of Present Illness: Mr Ocampo is a 72 years old male with history of colon cancer, S/P right hemicolectomy, no history of chemotherapy or radiation therapy per patient report, who came to ED complaining of abdominal pain associated with nausea, vomiting. He denied fever or chills. No diarrhea. The pain is localized on RLQ, 10/10 of intensity. The patient went to see his PCP today and was referred to ED to R/O appendicitis. Lab work shows normal WBC count. CT abd/pelvis is unremarkable. At my encounter, the patient remain with significant pain. No fever. Allergies No Known Allergies Allergy (Unverified 06/26/16 15:40) Home medications list reviewed: Yes Home Medications: NK [No Home Meds] 06/26/16 - Past Medical/Surgical History Diabetic: No -: HTN -: Newby's palsy -: diverticulitis -: smoker -: right hemicolectomy - Family History Family History: Reviewed- Non-Contributory - Social History Smoking Status: Current every day smoker Counseled patient to stop smoking for: less than 10 minutes Alcohol use: No CD- Drugs: No Caffeine use: Yes Place of Residence: Home Review of Systems 10-point ROS is otherwise unremarkable Physical Examination - Physical Exam General: Alert, In no apparent distress HEENT: Atraumatic, PERRLA, Mucous membr. moist/pink, EOMI, Sclerae nonicteric Neck: Supple, 2+ carotid pulse no bruit, No LAD, Without JVD or thyroid abnormality Respiratory: Clear to auscultation bilaterally, Normal air movement Cardiovascular: Regular rate/rhythm, Normal S1 S2 Gastrointestinal: Normal bowel sounds, Tenderness (RLQ) Musculoskeletal: No tenderness Integumentary: No rashes Neurological: Normal speech, Normal strength at 5/5 x4 extr, Normal tone, Normal affect Lymphatics: No axilla or inguinal lymphadenopathy - Studies Laboratory Data (last 24 hrs) 06/06/18 19:42: PT 12.4, INR 1.05 06/06/18 19:42: WBC 6.2, Hgb 14.7, Hct 42.4, Plt Count 139 L 06/06/18 19:42: Sodium 140, Potassium 4.0, BUN 19 H, Creatinine 1.11, Glucose 96 , Magnesium 2.3, Total Bilirubin 0.6, AST 16, ALT 23, Alkaline Phosphatase 131 H , Lipase 90 Assessment and Plan - Problems (Diagnosis) (1) Abdominal pain Current Visit: Yes Status: Acute Qualifiers: Abdominal location: right lower quadrant Qualified Code(s): R10.31 - Right lower quadrant pain (2) Nausea and vomiting Current Visit: Yes Status: Acute Qualifiers: Vomiting type: unspecified Vomiting Intractability: non-intractable Qualified Code(s): R11.2 - Nausea with vomiting, unspecified (3) History of colon cancer Current Visit: Yes Status: Acute - Plan Will admit the patient for symptoms control. Dr Jay spoke with Dr Hillman who will see the patient in AM. Awaiting further recommendations. - Advance Directives Does patient have a Living Will: No Does patient have a Durable POA for Healthcare: No - Code Status/Comfort Care Code Status Assessed: Yes Code Status: Full Code
[2018-06-07] MEDS ORDERED: MORPHINE 2 MG/ML SYR IV PRN (00:46)
[2018-06-07] MEDS ORDERED: ONDANSETRON 4 MG/2 ML VIAL IV PRN (00:46)
[2018-06-07] MEDS: NA CHLORIDE 0.9% 1,000 ML IV SCH ×2 (01:37→10:27)
[2018-06-07 05:40] LABS: Absolute Lymphocytes (CBC) 1.2 K/uL (0.7-4.9); Absolute Monocytes 0.5 K/uL (0.1-1.3); Absolute Neutrophil 3.6 K/uL (1.8-8.0); Basophils % 0.7 % (0-1.3); Eosinophils % 3.1 % (0-4.4); Hematocrit 39.5 % (39.6-49.0); Lymphocytes % 22.7 % (15.3-44.8); MPV 8.1 fL (7.6-11.3); Monocytes % 8.3 % (3.3-12.3); RBC Red Blood Cell Count 3.94 M/uL (4.33-5.43)
[2018-06-07 05:57] LABS: Potassium 3.8 mmol/L (3.5-5.1)
[2018-06-07] MEDS ORDERED: KCL 20 MEQ/100 mL IVPB 20 MEQ/100 ML BAG IV SCH (07:00)
--- NOTE | 2018-06-07 07:39 | EKG ---
Test Date: 2018-06-06 Test Time: 18:39:02 Electrical Engineering Technologist: MARTHA MEASUREMENT RESULTS: Intervals: Rate: 92 IL: 142 QRSD: 80 QT: 348 QTc: 430 [place]: P: 74 IL: 142 QRS: 89 T: 41 INTERPRETIVE STATEMENTS: Sinus rhythm with premature atrial complexes Otherwise normal ECG Compared to ECG 01/03/2018 06:08:55 Atrial premature complex(es) now present Right-axis deviation no longer present Electronically Signed On 06-07-18 07:28:07 WASTEWATER TREATMENT OPERATOR by Chucky Dai
--- NOTE | 2018-06-07 09:48 | RAD REPORT ---
EXAM DESCRIPTION: RAD - Abdomen W Decubitus - 06/07/2018 9:38 am CLINICAL HISTORY: Abdominal pain FINDINGS: Decubitus films obtained. Free air is not seen. The bowel gas pattern is unremarkable with contrast within the rectum
--- NOTE | 2018-06-07 09:49 | RAD REPORT ---
EXAM DESCRIPTION: RAD - Abdomen W Erect - 06/07/2018 9:38 am CLINICAL HISTORY: Abdominal pain FINDINGS: Free air is not seen beneath diaphragm. The bowel gas pattern is unremarkable with contrast in the rectum
[2018-06-07 16:17] LABS: Urine Appearance CLEAR; Urine Bilirubin NEGATIVE (NEG); Urine Blood TRACE (NEG); Urine Color YELLOW; Urine Glucose NEGATIVE (NEG); Urine Protein NEGATIVE (NEG)
[2018-06-07 16:30] LABS: Urine Microscopic Reflex ORDER UMIC
[2018-06-07 16:42] LABS: Urine Bacteria <20 /HPF (NONE SEEN); Urine Culture Reflex Order NOT NEEDED; Urine RBC <5 /HPF (NONE SEEN)
--- NOTE | 2018-06-07 21:56 | CON ---
Date of Consultation: 06/07/2018 Diagnosis: Abdominal pain. History Of Present Illness: This is the case of a 72-year-old patient who came last night with right lower quadrant tenderness, sent by the primary doctor, found the patient to have right lower quadran t tenderness. He . There is no dysuria, hematuria, hematochezia, or melena. There is no recent traveling out of the country. There is no family member sick at home. The patient does not r emember any colonoscopy more than 10 years despite the fact that he claimed he had right hemicolectom y for colon cancer in the s. We have no documentation on that at this moment. Past Medical History: Includes colon cancer, hypertension, and rogers palsy. Past Surgical History: Surgeries include right hemicolectomy. Family History: Noncontributory. Social History: He smokes a pack a day. He does not drink alcohol. The patient was counseled about smoking cessation. Review of Systems: Ten points otherwise unremarkable. Physical Examination: General: The patient is awake and alert. No distress. HEENT: Pupils are equal and reactive. Anicteric. Neck: Supple. Chest: Clear. Abdomen: Soft and depressible. No guarding or rebound. No peritoneal signs. The patient has a mid line incision. No tenderness today. Laboratory Data: Blood work shows WBC count of 5 with hemoglobin of 14. INR 1.05. Chloride is 109. Creatinine is 0.88. Lipase 90. CAT scan of abdomen and pelvis, interpreted by Dr. Anthony as no a cute findings. Assessment: This is a 72-year-old patient with multiple surgical history, comes with abdominal pain last night. This morning, it is completely gone. From the surgical standpoint, we did not see any c linically or radiographically something that we can do surgery on to improve his condition. He is im proving on his own. We already advice him that if he tolerates diet and goes home, to make sure he f ollow up with his colorectal surgeon and follow up with the legal biller, so he can do his sche duled colonoscopy, which is very important in his case as followup from previous colon cancer. He un derstood. CHAPITO/MODL Voice ID: [id number] Report ID: [id number]
--- NOTE | 2018-06-08 15:26 | DS ---
Date of Discharge: 06/07/2018 Discharge Diagnoses: 1. Right lower quadrant abdominal pain. 2. Nausea and vomiting, not intractable. 3. History of colon cancer, status post right hemicolectomy. 4. Obesity, BMI 30. 5. Essential hypertension, not on any medications at home. Hospital Course: The patient is a 72-year-old male, who comes in with past medical history of hypertension, colon cancer, status post right-sided hemicolectomy. The patient refused chemo and radiation therapy. He has not followed up with Oncology since his surgery. He comes in with abdominal pain on the right lower quadrant, sent in by PCP, concern for appendicitis, certainly with right hemicolectomy. The appendix is also surgically removed. CT scan was negative. Does not have any elevated white blood cell count. He was afebrile. His pain has been on and off for the past several days. He denies any travel outside the country. No well water use. No unusual foods. No diarrhea. No blood in the stool. No constipation. The patient is able to tolerate his diet. Abdominal x-ray did not show any obstruction. Normal bowel gas pattern. Dr. Hillman was consulted with General Surgery, he did not recommend any surgical intervention. The patient was then cleared for discharge. He was sent home in a stable condition. Activity: As tolerated. Medications: As per medication reconciliation list. Followup: Follow up with primary care physician in 2-3 days. Follow up with surgeon, Dr. Hillman, per his recommendation establish care with oncologist within 2-4 weeks as soon as possible. Return to ER for worsening condition. Diet: Heart healthy. Code status: Full Physical Examination: General: Awake, alert, oriented x3. Elderly male, obese. CV: S1, S2. No murmurs. Respiratory: Moving air well bilaterally. Abdomen: Soft, nontender, nondistended. Positive bowel sounds. Extremities: No clubbing, cyanosis, or edema. Neurologic: Nonfocal. SA/MODL Voice ID: [id number] Report ID: [id number] [id number]
== END 2018-06-07 18:37 | disposition home or self-care (01) ==
LOC: ER 15:58 → ERHOLD 23:28 → 2ND 06-07 00:40
PROVIDERS: ADMIT Internal Medicine; ATTEND Internal Medicine
DX: R10.9 Unspecified abdominal pain (principal); R11.2 Nausea with vomiting, unspecified; I10 Essential (primary) hypertension; Z85.038 Personal history of other malignant neoplasm of large intestine; F17.210 Nicotine dependence, cigarettes, uncomplicated; E66.9 Obesity, unspecified; Z68.30 Body mass index [BMI] 30.0-30.9, adult
CPT/HCPCS: 36415; 71045; 74019; 74021; 74177; 80048 ×2; 80076; 83690; 83735; 83880; 84484; 85025 ×2; 85610; 87040 ×2; 93005; 96361; 96365; 96368; 99285; G0378; G0379; J0744; J7030 ×3; Q9967; 81003; 81015

== ENCOUNTER 2021-10-06 09:55 | Emergency (ER) | payer OTHER ==
--- OUTSIDE RECORDS SUMMARY | 2021-10-06 10:00 | XMS REPORT | Continuity of Care Document ---
:1945 Author Organization [facility] t Address [address] [place] [address] Dr. San [address] [place] [id number] Care Team Providers Name Role Phone URSULA KELLY Attending Clinician Unavailable CAROL Attending Clinician Unavailable MAYDA KELLY Admitting Clinician Unavailable CAROL Admitting Clinician Unavailable Problems This patient has no known problems. Allergies, Adverse Reactions, Alerts This patient has no known allergies or adverse reactions. Medications This patient has no known medications. Procedures This patient has no known procedures. Results Test Description Test Time Test Comments Results Result [facility] e Comments TISSUE EXAM 2016-08-11 Surgical Pathology Report 18:34:00 Case: [id number] Audra thorgrant Provider: Ursula Kelly MD Ordering Provider: Ursula Kelly MD Ordering Location: [facility] PERIOPERATIVE Collected: 07/28/2016 0906 SERVICES Pathologist: Janiya Hayes MD Received: 07/28/2016 1137 Specimens: A) - Omentum B) - Small Bowel, NOS, with right colon and sigmoid colon C) - Rectal, Rectal stump D) - Soft Tissue, Other, Proximal anastomotic colon donut E) - [...] DISTAL ANASTOMOTIC COLON DONUT, EXCISION: - COLONIC MUCOSA, NEGATIVE FOR TUMOR Signing Pathologist Direct Phone Line: [phone]. The tumor invades through the colonic wall into adjacent small bowel wall. The attached sigmoid colon is not directly invaded by the tumor.IHC testing for all four MMR proteins was performed on selected block B6 with appropriate controls.RESULTSMLH1: Intact nuclear expressionMSH2: Intact nuclear expressionMSH6: Intact nuclear expressionPMS2: Intact nuclear expressionIHC InterpretationNo loss of nuclear expression of MMR proteins: low probability of microsatellite instability-high (MSI-H)# #There are exceptions to the above IHC interpretations. These results should not be considered in isolation, and clinical correlation with genetic counseling is recommended to assess the need for germline testing.Immunohistochemis try disclaimerThe following special studies were performed on this case and the interpretation is incorporated in the diagnostic report above: The immunohistochemistry test was developed and its performance characteristics determined by [facility], Pathology Laboratory. It has not been cleared [...] the submitted specimen(s)ADDITIONAL FINDINGS Additional Pathologic Findings: Adenoma(s)43103, 24063, 71810 X 3, 69021 X 4Colon cancerA. Omentum; B. Right colon and sigmoid colon; C. Rectal stump; D. Proximal anastomotic colon donut; E. Distal anastomotic colon donutSpecimen is received in five containers of formalin all labeled with the patient's information.Specimen A labeled "omentum" consists of a segment of omentum measuring 12.5 x 7 x 1 cm. Grossly, no suspicious areas are seen. Msw sections submitted A1 to A4, two sections [...] No distinct abnormalities are seen. Section code: C1, margin en face; C2 and C3, area of stump.Specimen D labeled "proximal anastomotic colon" consists of a lynn hemorrhagic colon donut measuring 2 x 1.5 x 0.8 cm. The specimen is sectioned, submitted entirely D1. Speicmen E labeled "distal anastomotic donut" consists of a lynn hemorrhagic colon donut measuring 2 x 1.5 x 0.5 cm. The specimen is sectioned and submitted entirely E. CG/plPerformed. POCT-GLUCOSE METER 2016-08-07 08:00:00 Test Item Value Reference Range Interpretation Comme nts POC-GLUCOSE METER ([place]) (test 124 mg/dL 70-110 H TESTED AT [facility] [address] [facility] code = 1538) [facility] 7703 0 POCT-GLUCOSE [id number] 05:48:00 Test Item Value Reference Range Interpretation Comments POC-GLUCOSE METER 115 mg/dL 70-110 H TESTED AT [facility] [address] ([place]) (test code = DANIEL Hale [facility] 1538) [address] [id number] 05:24:00 Test Item Value Reference Range Interpretation Comments TRIGLYCERIDES (BEAKER) (test code = 213 mg/dL 540) TRIGLYCERIDE REFERENCE RANGELow Risk <150Borderline Risk 150-199High Risk 200-499Very High Risk>=[id number] 05:24:00 Test Item Value Reference Range Interpretation Comments MAGNESIUM (BEAKER) (test code = 2.0 mg/dL 1.6-2.6 627) [id number] 05:24:00 Test Item Value Reference Range Interpretation Comments PHOSPHORUS (BEAKER) (test code = 3.6 mg/dL 2.3-4.7 604) BASIC METABOLIC [id number] 05:24:00 Test Item Value Reference Range Interpretation Comments SODIUM (BEAKER) 138 meq/L 136-145 (test code = 381) POTASSIUM (BEAKER) 3.8 meq/L 3.5-5.1 (test code = 379) CHLORIDE (BEAKER) 108 meq/L 98-107 H (test code = 382) CO2 (BEAKER) (test 21 meq/L 22-29 L code = 355) BLOOD UREA NITROGEN 10 mg/dL 7-21 (BEAKER) (test code = 354) CREATININE (BEAKER) 0.61 mg/dL 0.57-1.25 (test code = 358) GLUCOSE RANDOM 99 mg/dL 70-105 (BEAKER) (test code = 652) CALCIUM (BEAKER) 8.3 mg/dL 8.4-10.2 L (test code = 697) EGFR (BEAKER) (test 131 mL/min/1.73 ESTIM ATED GFR IS code = 1092) sq m NOT ACCURATE CREATININE CLEARANCE IN PREDICTING GLOMERULAR FILTRATION RATE . ESTIMATED GFR I S NOT APPLICABLE FOR DIALYSIS PATIEN TS. POCT-GLUCOSE [id number] 00:14:00 Test Item Value Reference Range Interpretation Comments POC-GLUCOSE METER 107 mg/dL 70-110 TESTED AT [facility] 67[address] ([employer]) (test code = [place]ANIEL [place] 1538) [address] POCT-GLUCOSE [id number] 12:03:00 Test Item Value Reference Range Interpretation Comments POC-GLUCOSE METER 123 mg/dL 70-110 H TESTED AT [facility] 67[address] ([employer]) (test code = [place] 1538) [address] POCT-GLUCOSE [id number] 06:52:00 Test Item Value Reference Range Interpretation Comments POC-GLUCOSE METER 115 mg/dL 70-110 H TESTED AT [facility] 6720 (BEAKER) (test code = DANIEL MICHAUD 1538) [address] [id number] 05:30:00 Test Item Value Reference Range Interpretation Comments TRIGLYCERIDES (BEAKER) (test code = 151 mg/dL 540) TRIGLYCERIDE REFERENCE RANGELow Risk <150Borderline Risk 150-199High Risk 200-499Very High Risk>=[id number] 05:30:00 Test Item Value Reference Range Interpretation Comments MAGNESIUM (BEAKER) (test code = 1.9 mg/dL 1.6-2.6 627) [id number] 05:30:00 Test Item Value Reference Range Interpretation Comments PHOSPHORUS (BEAKER) (test code = 3.9 mg/dL 2.3-4.7 604) BASIC METABOLIC [id number] 05:30:00 Test Item Value Reference Range Interpretation Comments SODIUM (BEAKER) 138 meq/L 136-145 (test code = 381) POTASSIUM (BEAKER) 4.0 meq/L 3.5-5.1 (test code = 379) CHLORIDE (BEAKER) 109 meq/L 98-107 H (test code = 382) CO2 (BEAKER) (test 22 meq/L 22-29 code = 355) BLOOD UREA NITROGEN 12 mg/dL 7-21 (BEAKER) (test code = 354) CREATININE (BEAKER) 0.55 mg/dL 0.57-1.25 L (test code = 358) GLUCOSE RANDOM 105 mg/dL 70-105 (BEAKER) (test code = 652) CALCIUM (BEAKER) 8.0 mg/dL 8.4-10.2 L (test code = 697) EGFR (BEAKER) (test 148 mL/min/1.73 ESTIM ATED GFR IS code = 1092) sq m NOT ACCURATE CREATININE CLEARANCE IN PREDICTING GLOMERULAR FILTRATION RATE . ESTIMATED GFR I S NOT APPLICABLE FOR DIALYSIS PATIEN TS. POCT-GLUCOSE [id number] 23:20:00 Test Item Value Reference Range Interpretation Comments POC-GLUCOSE METER 104 mg/dL 70-110 TESTED AT [facility] 67[address] (BEAKER) (test code = DANIEL Hale [facility] 1538) [address] POCT-GLUCOSE [id number] 17:14:00 Test Item Value Reference Range Interpretation Comments POC-GLUCOSE METER 90 mg/dL 70-110 TESTED AT [facility] 6720 (BEAKER) (test code = [facility] Alexia [facility] [address] 1538) POCT-GLUCOSE [id number] 11:54:00 Test Item Value Reference Range Interpretation Comments POC-GLUCOSE METER 106 mg/dL 70-110 TESTED AT [place] [address] (BEAKER) (test code = [facility] Alexia [facility] 1538) [address] CBC W/PLT COUNT & AUTO [id number] 09:24:00 Test Item Value Reference Range Interpretation Comments WHITE BLOOD CELL COUNT (BEAKER) 4.6 K/ L 4.0-10.0 (test code = 775) RED BLOOD CELL COUNT (BEAKER) 3.49 M/ L 4.20-5.80 L (test code = 761) HEMOGLOBIN (BEAKER) (test code = 11.7 GM/DL 13.0-16.8 L 410) HEMATOCRIT (BEAKER) (test code = 35.5 % 40.0-50.0 L 411) MEAN CORPUSCULAR VOLUME (BEAKER) 101.0 fL 82.0-98.0 H (test code = 753) MEAN CORPUSCULAR HEMOGLOBIN 33.5 pg 27.0-33.0 H (BEAKER) (test code = 751) MEAN CORPUSCULAR HEMOGLOBIN CONC 33.0 GM/DL 32.0-36.0 (BEAKER) (test code = 752) RED CELL DISTRIBUTION WIDTH 13.9 % 10.3-14.2 (BEAKER) (test code = 412) PLATELET COUNT (BEAKER) (test 203 K/CU MM 150-430 code = 756) MEAN PLATELET VOLUME (BEAKER) 7.3 fL 6.5-10.5 (test code = 754) NUCLEATED RED BLOOD CELLS 0 /100 WBC 0-0 (BEAKER) (test code = 413) NEUTROPHILS RELATIVE PERCENT 57 % (BEAKER) (test code = 429) LYMPHOCYTES RELATIVE PERCENT 28 % (BEAKER) (test code = 430) MONOCYTES RELATIVE PERCENT 8 % (BEAKER) (test code = 431) EOSINOPHILS RELATIVE PERCENT 7 % (BEAKER) (test code = 432) BASOPHILS RELATIVE PERCENT 0 % (BEAKER) (test code = 437) NEUTROPHILS ABSOLUTE COUNT 2.60 K/ L 1.80-8.00 (BEAKER) (test code = 670) LYMPHOCYTES ABSOLUTE COUNT 1.27 K/ L 1.48-4.50 L (BEAKER) (test code = 414) MONOCYTES ABSOLUTE COUNT (BEAKER) 0.38 K/ L 0.00-1.30 (test code = 415) EOSINOPHILS ABSOLUTE COUNT 0.30 K/ L 0.00-0.50 (BEAKER) (test code = 416) BASOPHILS ABSOLUTE COUNT (BEAKER) 0.00 K/ L 0.00-0.20 (test code = 417) [id number] 07:12:00 Test Item Value Reference Range Interpretation Comments TRIGLYCERIDES (BEAKER) (test code = 108 mg/dL 540) TRIGLYCERIDE REFERENCE RANGELow Risk <150Borderline Risk 150-199High Risk 200-499Very High Risk>=[id number] 07:12:00 Test Item Value Reference Range Interpretation Comments MAGNESIUM (BEAKER) (test code = 2.0 mg/dL 1.6-2.6 627) [id number] 07:12:00 Test Item Value Reference Range Interpretation Comments PHOSPHORUS (BEAKER) (test code = 3.4 mg/dL 2.3-4.7 604) BASIC METABOLIC [id number] 07:12:00 Test Item Value Reference Range Interpretation Comments SODIUM (BEAKER) 139 meq/L 136-145 (test code = 381) POTASSIUM (BEAKER) 4.1 meq/L 3.5-5.1 (test code = 379) CHLORIDE (BEAKER) 112 meq/L 98-107 H (test code = 382) CO2 (BEAKER) (test 19 meq/L 22-29 L code = 355) BLOOD UREA NITROGEN 9 mg/dL 7-21 (BEAKER) (test code = 354) CREATININE (BEAKER) 0.55 mg/dL 0.57-1.25 L (test code = 358) GLUCOSE RANDOM 105 mg/dL 70-105 (BEAKER) (test code = 652) CALCIUM (BEAKER) 7.9 mg/dL 8.4-10.2 L (test code = 697) EGFR (BEAKER) (test 148 mL/min/1.73 ESTIM ATED GFR IS code = 1092) sq m NOT ACCURATE CREATININE CLEARANCE IN PREDICTING GLOMERULAR FILTRATION RATE . ESTIMATED GFR I S NOT APPLICABLE FOR DIALYSIS PATIEN TS. POCT-GLUCOSE [id number] 05:45:00 Test Item Value Reference Range Interpretation Comments POC-GLUCOSE METER 115 mg/dL 70-110 H TESTED AT [place] [address] ([facility]) (test code = [facility] 1538) [address] POCT-GLUCOSE [id number] 23:28:00 Test Item Value Reference Range Interpretation Comments POC-GLUCOSE METER 124 mg/dL 70-110 H TESTED AT [place] [address] ([facility]) (test code = [facility] 1538) [address] POCT-GLUCOSE [id number] 16:34:00 Test Item Value Reference Range Interpretation Comments POC-GLUCOSE METER 127 mg/dL 70-110 H TESTED AT [place] [address] ([facility]) (test code = [facility] 1538) [address] POCT-GLUCOSE [id number] 11:04:00 Test Item Value Reference Range Interpretation Comments POC-GLUCOSE METER 146 mg/dL 70-110 H TESTED AT [place] [address] ([facility]) (test code = [facility] 1538) [address] POCT-GLUCOSE [id number] 05:28:00 Test Item Value Reference Range Interpretation Comments POC-GLUCOSE METER 130 mg/dL 70-110 H TESTED AT [place] [address] ([facility]) (test code = [facility] 1538) [address] BASIC METABOLIC [id number] 04:56:00 Test Item Value Reference Range Interpretation Comments SODIUM (BEAKER) 138 meq/L 136-145 (test code = 381) POTASSIUM (BEAKER) 3.7 meq/L 3.5-5.1 (test code = 379) CHLORIDE (BEAKER) 110 meq/L 98-107 H (test code = 382) CO2 (BEAKER) (test 18 meq/L 22-29 L code = 355) BLOOD UREA NITROGEN 6 mg/dL 7-21 L (BEAKER) (test code = 354) CREATININE (BEAKER) 0.58 mg/dL 0.57-1.25 (test code = 358) GLUCOSE RANDOM 116 mg/dL 70-105 H (BEAKER) (test code = 652) CALCIUM (BEAKER) 7.5 mg/dL 8.4-10.2 L (test code = 697) EGFR (BEAKER) (test 139 mL/min/1.73 ESTIM ATED GFR IS code = 1092) sq m NOT ACCURATE CREATININE CLEARANCE IN PREDICTING GLOMERULAR FILTRATION RATE . ESTIMATED GFR I S NOT APPLICABLE FOR DIALYSIS PATIEN TS. [id number] 04:52:00 Test Item Value Reference Range Interpretation Comments TRIGLYCERIDES (BEAKER) (test code = 98 mg/dL 540) TRIGLYCERIDE REFERENCE RANGELow Risk <150Borderline Risk 150-199High Risk 200-499Very High Risk>=[id number] 04:52:00 Test Item Value Reference Range Interpretation Comments MAGNESIUM (BEAKER) (test code = 1.9 mg/dL 1.6-2.6 627) [id number] 04:52:00 Test Item Value Reference Range Interpretation Comments PHOSPHORUS (BEAKER) (test code = 3.0 mg/dL 2.3-4.7 604) CBC W/PLT COUNT & AUTO [id number] 04:44:00 Test Item Value Reference Range Interpretation Comments WHITE BLOOD CELL COUNT (BEAKER) 4.0 K/ L 4.0-10.0 (test code = 775) RED BLOOD CELL COUNT (BEAKER) 3.33 M/ L 4.20-5.80 L (test code = 761) HEMOGLOBIN (BEAKER) (test code = 11.3 GM/DL 13.0-16.8 L 410) HEMATOCRIT (BEAKER) (test code = 33.8 % 40.0-50.0 L 411) MEAN CORPUSCULAR VOLUME (BEAKER) 102.0 fL 82.0-98.0 H (test code = 753) MEAN CORPUSCULAR HEMOGLOBIN 34.0 pg 27.0-33.0 H (BEAKER) (test code = 751) MEAN CORPUSCULAR HEMOGLOBIN CONC 33.5 GM/DL 32.0-36.0 (BEAKER) (test code = 752) RED CELL DISTRIBUTION WIDTH 14.7 % 10.3-14.2 H (BEAKER) (test code = 412) PLATELET COUNT (BEAKER) (test 215 K/CU MM 150-430 code = 756) MEAN PLATELET VOLUME (BEAKER) 6.9 fL 6.5-10.5 (test code = 754) NUCLEATED RED BLOOD CELLS 0 /100 WBC 0-0 (BEAKER) (test code = 413) NEUTROPHILS RELATIVE PERCENT 65 % (BEAKER) (test code = 429) LYMPHOCYTES RELATIVE PERCENT 21 % (BEAKER) (test code = 430) MONOCYTES RELATIVE PERCENT 10 % (BEAKER) (test code = 431) EOSINOPHILS RELATIVE PERCENT 4 % (BEAKER) (test code = 432) BASOPHILS RELATIVE PERCENT 0 % (BEAKER) (test code = 437) NEUTROPHILS ABSOLUTE COUNT 2.56 K/ L 1.80-8.00 (BEAKER) (test code = 670) LYMPHOCYTES ABSOLUTE COUNT 0.85 K/ L 1.48-4.50 L (BEAKER) (test code = 414) MONOCYTES ABSOLUTE COUNT (BEAKER) 0.39 K/ L 0.00-1.30 (test code = 415) EOSINOPHILS ABSOLUTE COUNT 0.14 K/ L 0.00-0.50 (BEAKER) (test code = 416) BASOPHILS ABSOLUTE COUNT (BEAKER) 0.02 K/ L 0.00-0.20 (test code = 417) 0.00POCT-GLUCOSE [id number] 23:43:00 Test Item Value Reference Range Interpretation Comments POC-GLUCOSE METER 156 mg/dL 70-110 H TESTED AT [facility] 6720 (BEAKER) (test code = [place] 1538) [address] CBC W/PLT COUNT & AUTO [id number] 08:12:00 Test Item Value Reference Range Interpretation Comments WHITE BLOOD CELL COUNT (BEAKER) 3.6 K/ L 4.0-10.0 L (test code = 775) RED BLOOD CELL COUNT (BEAKER) 3.62 M/ L 4.20-5.80 L (test code = 761) HEMOGLOBIN (BEAKER) (test code = 11.9 GM/DL 13.0-16.8 L 410) HEMATOCRIT (BEAKER) (test code = 36.0 % 40.0-50.0 L 411) MEAN CORPUSCULAR VOLUME (BEAKER) 99.4 fL 82.0-98.0 H (test code = 753) MEAN CORPUSCULAR HEMOGLOBIN 32.9 pg 27.0-33.0 (BEAKER) (test code = 751) MEAN CORPUSCULAR HEMOGLOBIN CONC 33.1 GM/DL 32.0-36.0 (BEAKER) (test code = 752) RED CELL DISTRIBUTION WIDTH 13.5 % 10.3-14.2 (BEAKER) (test code = 412) PLATELET COUNT (BEAKER) (test 241 K/CU MM 150-430 code = 756) MEAN PLATELET VOLUME (BEAKER) 6.9 fL 6.5-10.5 (test code = 754) NUCLEATED RED BLOOD CELLS 0 /100 WBC 0-0 (BEAKER) (test code = 413) NEUTROPHILS RELATIVE PERCENT 64 % (BEAKER) (test code = 429) LYMPHOCYTES RELATIVE PERCENT 22 % (BEAKER) (test code = 430) MONOCYTES RELATIVE PERCENT 11 % (BEAKER) (test code = 431) EOSINOPHILS RELATIVE PERCENT 3 % (BEAKER) (test code = 432) BASOPHILS RELATIVE PERCENT 1 % (BEAKER) (test code = 437) NEUTROPHILS ABSOLUTE COUNT 2.29 K/ L 1.80-8.00 (BEAKER) (test code = 670) LYMPHOCYTES ABSOLUTE COUNT 0.80 K/ L 1.48-4.50 L (BEAKER) (test code = 414) MONOCYTES ABSOLUTE COUNT (BEAKER) 0.38 K/ L 0.00-1.30 (test code = 415) EOSINOPHILS ABSOLUTE COUNT 0.10 K/ L 0.00-0.50 (BEAKER) (test code = 416) BASOPHILS ABSOLUTE COUNT (BEAKER) 0.02 K/ L 0.00-0.20 (test code = 417) 0.00BASI METABOLIC [id number] 06:57:00 Test Item Value Reference Range Interpretation Comments SODIUM (BEAKER) 135 meq/L 136-145 L (test code = 381) POTASSIUM (BEAKER) 3.9 meq/L 3.5-5.1 (test code = 379) CHLORIDE (BEAKER) 109 meq/L 98-107 H (test code = 382) CO2 (BEAKER) (test 19 meq/L 22-29 L code = 355) BLOOD UREA NITROGEN 4 mg/dL 7-21 L (BEAKER) (test code = 354) CREATININE (BEAKER) 0.59 mg/dL 0.57-1.25 (test code = 358) GLUCOSE RANDOM 114 mg/dL 70-105 H (BEAKER) (test code = 652) CALCIUM (BEAKER) 7.6 mg/dL 8.4-10.2 L (test code = 697) EGFR (BEAKER) (test 137 mL/min/1.73 ESTIM ATED GFR IS code = 1092) sq m NOT ACCURATE CREATININE CLEARANCE IN PREDICTING GLOMERULAR FILTRATION RATE . ESTIMATED GFR I S NOT APPLICABLE FOR DIALYSIS PATIEN TS. [id number] 06:53:00 Test Item Value Reference Range Interpretation Comments PHOSPHORUS (BEAKER) (test code = 2.5 mg/dL 2.3-4.7 604) [id number] 06:53:00 Test Item Value Reference Range Interpretation Comments MAGNESIUM (BEAKER) (test code = 1.8 mg/dL 1.6-2.6 627) [id number] 06:12:00 Test Item Value Reference Range Interpretation Comments PHOSPHORUS (BEAKER) (test code = 2.6 mg/dL 2.3-4.7 604) [id number] 06:12:00 Test Item Value Reference Range Interpretation Comments MAGNESIUM (BEAKER) (test code = 1.8 mg/dL 1.6-2.6 627) BASIC METABOLIC [id number] 04:05:00 Test Item Value Reference Range Interpretation Comments SODIUM (BEAKER) 139 meq/L 136-145 (test code = 381) POTASSIUM (BEAKER) 4.0 meq/L 3.5-5.1 (test code = 379) CHLORIDE (BEAKER) 111 meq/L 98-107 H (test code = 382) CO2 (BEAKER) (test 22 meq/L 22-29 code = 355) BLOOD UREA NITROGEN 6 mg/dL 7-21 L (BEAKER) (test code = 354) CREATININE (BEAKER) 0.62 mg/dL 0.57-1.25 (test code = 358) GLUCOSE RANDOM 120 mg/dL 70-105 H (BEAKER) (test code = 652) CALCIUM (BEAKER) 7.9 mg/dL 8.4-10.2 L (test code = 697) EGFR (BEAKER) (test 129 mL/min/1.73 ESTIM ATED GFR IS code = 1092) sq m NOT ACCURATE CREATININE CLEARANCE IN PREDICTING GLOMERULAR FILTRATION RATE . ESTIMATED GFR I S NOT APPLICABLE FOR DIALYSIS PATIEN TS. POCT-GLUCOSE [id number] 18:23:00 Test Item Value Reference Range Interpretation Comments POC-GLUCOSE METER 138 mg/dL 70-110 H TESTED AT [facility] 6720 (BEAKER) (test code = [place] 1538) [address] [id number] 05:27:00 Test Item Value Reference Range Interpretation Comments PHOSPHORUS (BEAKER) (test code = 2.8 mg/dL 2.3-4.7 604) [id number] 05:27:00 Test Item Value Reference Range Interpretation Comments MAGNESIUM (BEAKER) (test code = 1.9 mg/dL 1.6-2.6 627) BASIC METABOLIC [id number] 05:27:00 Test Item Value Reference Range Interpretation Comments SODIUM (BEAKER) 139 meq/L 136-145 (test code = 381) POTASSIUM (BEAKER) 3.8 meq/L 3.5-5.1 (test code = 379) CHLORIDE (BEAKER) 107 meq/L 98-107 (test code = 382) CO2 (BEAKER) (test 22 meq/L 22-29 code = 355) BLOOD UREA NITROGEN 3 mg/dL 7-21 L (BEAKER) (test code = 354) CREATININE (BEAKER) 0.61 mg/dL 0.57-1.25 (test code = 358) GLUCOSE RANDOM 99 mg/dL 70-105 (BEAKER) (test code = 652) CALCIUM (BEAKER) 8.6 mg/dL 8.4-10.2 (test code = 697) EGFR (BEAKER) (test 131 mL/min/1.73 ESTIM ATED GFR IS code = 1092) sq m NOT ACCURATE CREATININE CLEARANCE IN PREDICTING GLOMERULAR FILTRATION RATE . ESTIMATED GFR I S NOT APPLICABLE FOR DIALYSIS PATIEN TS. [id number] 05:37:00 Test Item Value Reference Range Interpretation Comments PHOSPHORUS (BEAKER) (test code = 2.2 mg/dL 2.3-4.7 L 604) [id number] 05:37:00 Test Item Value Reference Range Interpretation Comments MAGNESIUM (BEAKER) (test code = 2.1 mg/dL 1.6-2.6 627) BASIC METABOLIC [id number] 05:37:00 Test Item Value Reference Range Interpretation Comments SODIUM (BEAKER) 143 meq/L 136-145 (test code = 381) POTASSIUM (BEAKER) 3.6 meq/L 3.5-5.1 (test code = 379) CHLORIDE (BEAKER) 111 meq/L 98-107 H (test code = 382) CO2 (BEAKER) (test 22 meq/L 22-29 code = 355) BLOOD UREA NITROGEN 4 mg/dL 7-21 L (BEAKER) (test code = 354) CREATININE (BEAKER) 0.68 mg/dL 0.57-1.25 (test code = 358) GLUCOSE RANDOM 108 mg/dL 70-105 H (BEAKER) (test code = 652) CALCIUM (BEAKER) 8.8 mg/dL 8.4-10.2 (test code = 697) EGFR (BEAKER) (test 116 mL/min/1.73 ESTIM ATED GFR IS code = 1092) sq m NOT ACCURATE CREATININE CLEARANCE IN PREDICTING GLOMERULAR FILTRATION RATE . ESTIMATED GFR I S NOT APPLICABLE FOR DIALYSIS PATIEN TS. CBC (HEMOGRAM ONLY)2016-07-30 05:36:00 Test Item Value Reference Range Interpretation Comments WHITE BLOOD CELL COUNT (BEAKER) 9.6 K/ L 4.0-10.0 (test code = 775) RED BLOOD CELL COUNT (BEAKER) 3.94 M/ L 4.20-5.80 L (test code = 761) HEMOGLOBIN (BEAKER) (test code = 12.9 GM/DL 13.0-16.8 L 410) HEMATOCRIT (BEAKER) (test code = 39.4 % 40.0-50.0 L 411) MEAN CORPUSCULAR VOLUME (BEAKER) 100.0 fL 82.0-98.0 H (test code = 753) MEAN CORPUSCULAR HEMOGLOBIN 32.7 pg 27.0-33.0 (BEAKER) (test code = 751) MEAN CORPUSCULAR HEMOGLOBIN CONC 32.7 GM/DL 32.0-36.0 (BEAKER) (test code = 752) RED CELL DISTRIBUTION WIDTH 13.9 % 10.3-14.2 (BEAKER) (test code = 412) PLATELET COUNT (BEAKER) (test 303 K/CU MM 150-430 code = 756) MEAN PLATELET VOLUME (BEAKER) 7.1 fL 6.5-10.5 (test code = 754) NUCLEATED RED BLOOD CELLS 0 /100 WBC 0-0 (BEAKER) (test code = 413) 0.00CBC (HEMOGRAM ONLY)2016-07-29 07:39:00 Test Item Value Reference Range Interpretation Comments WHITE BLOOD CELL COUNT (BEAKER) 10.1 K/ L 4.0-10.0 H (test code = 775) RED BLOOD CELL COUNT (BEAKER) 3.67 M/ L 4.20-5.80 L (test code = 761) HEMOGLOBIN (BEAKER) (test code = 12.3 GM/DL 13.0-16.8 L 410) HEMATOCRIT (BEAKER) (test code = 36.7 % 40.0-50.0 L 411) MEAN CORPUSCULAR VOLUME (BEAKER) 100.0 fL 82.0-98.0 H (test code = 753) MEAN CORPUSCULAR HEMOGLOBIN 33.7 pg 27.0-33.0 H (BEAKER) (test code = 751) MEAN CORPUSCULAR HEMOGLOBIN CONC 33.6 GM/DL 32.0-36.0 (BEAKER) (test code = 752) RED CELL DISTRIBUTION WIDTH 13.5 % 10.3-14.2 (BEAKER) (test code = 412) PLATELET COUNT (BEAKER) (test 251 K/CU MM 150-430 code = 756) MEAN PLATELET VOLUME (BEAKER) 7.2 fL 6.5-10.5 (test code = 754) NUCLEATED RED BLOOD CELLS 0 /100 WBC 0-0 (BEAKER) (test code = 413) 0.00POCT-GLUCOSE [id number] 06:32:00 Test Item Value Reference Range Interpretation Comments POC-GLUCOSE METER 126 mg/dL 70-110 H TESTED AT [facility] 67[address] (BEAKER) (test code = DANIEL MICHAUD 1538) [id number] 06:01:00 Test Item Value Reference Range Interpretation Comments PHOSPHORUS (BEAKER) (test code = 3.2 mg/dL 2.3-4.7 604) [id number] 06:01:00 Test Item Value Reference Range Interpretation Comments MAGNESIUM (BEAKER) (test code = 1.8 mg/dL 1.6-2.6 627) BASIC METABOLIC [id number] 06:01:00 Test Item Value Reference Range Interpretation Comments SODIUM (BEAKER) 140 meq/L 136-145 (test code = 381) POTASSIUM (BEAKER) 4.2 meq/L 3.5-5.1 (test code = 379) CHLORIDE (BEAKER) 111 meq/L 98-107 H (test code = 382) CO2 (BEAKER) (test 18 meq/L 22-29 L code = 355) BLOOD UREA NITROGEN 5 mg/dL 7-21 L (BEAKER) (test code = 354) CREATININE (BEAKER) 0.72 mg/dL 0.57-1.25 (test code = 358) GLUCOSE RANDOM 119 mg/dL 70-105 H (BEAKER) (test code = 652) CALCIUM (BEAKER) 8.3 mg/dL 8.4-10.2 L (test code = 697) EGFR (BEAKER) (test 109 mL/min/1.73 ESTIM ATED GFR IS code = 1092) sq m NOT ACCURATE CREATININE CLEARANCE IN PREDICTING GLOMERULAR FILTRATION RATE . ESTIMATED GFR I S NOT APPLICABLE FOR DIALYSIS PATIEN TS. POCT-GLUCOSE [id number] 00:44:00 Test Item Value Reference Range Interpretation Comments POC-GLUCOSE METER 125 mg/dL 70-110 H TESTED AT [facility] 67[address] (BEAKER) (test code = DANIEL [place]HAM [place] 1538) [id number] BASIC METABOLIC [id number] 14:33:00 Test Item Value Reference Range Interpretation Comments SODIUM (BEAKER) 140 meq/L 136-145 (test code = 381) POTASSIUM (BEAKER) 4.7 meq/L 3.5-5.1 (test code = 379) CHLORIDE (BEAKER) 115 meq/L 98-107 H (test code = 382) CO2 (BEAKER) (test 18 meq/L 22-29 L code = 355) BLOOD UREA NITROGEN 5 mg/dL 7-21 L (BEAKER) (test code = 354) CREATININE (BEAKER) 0.97 mg/dL 0.57-1.25 (test code = 358) GLUCOSE RANDOM 129 mg/dL 70-105 H (BEAKER) (test code = 652) CALCIUM (BEAKER) 7.4 mg/dL 8.4-10.2 L (test code = 697) EGFR (BEAKER) (test 77 mL/min/1.73 ESTIMA ANNA GFR IS code = 1092) sq m NOT ACCURATE CREATININE CLEARANCE IN PREDICTING GLOMERULAR FILTRATION RATE . ESTIMATED GFR I S NOT APPLICABLE FOR DIALYSIS PATIEN TS. CBC (HEMOGRAM ONLY)2016-07-28 14:20:00 Test Item Value Reference Range Interpretation Comments WHITE BLOOD CELL COUNT (BEAKER) 7.7 K/ L 4.0-10.0 (test code = 775) RED BLOOD CELL COUNT (BEAKER) 3.34 M/ L 4.20-5.80 L (test code = 761) HEMOGLOBIN (BEAKER) (test code = 11.4 GM/DL 13.0-16.8 L 410) HEMATOCRIT (BEAKER) (test code = 33.5 % 40.0-50.0 L 411) MEAN CORPUSCULAR VOLUME (BEAKER) 100.0 fL 82.0-98.0 H (test code = 753) MEAN CORPUSCULAR HEMOGLOBIN 34.1 pg 27.0-33.0 H (BEAKER) (test code = 751) MEAN CORPUSCULAR HEMOGLOBIN CONC 33.9 GM/DL 32.0-36.0 (BEAKER) (test code = 752) RED CELL DISTRIBUTION WIDTH 13.4 % 10.3-14.2 (BEAKER) (test code = 412) PLATELET COUNT (BEAKER) (test 208 K/CU MM 150-430 code = 756) MEAN PLATELET VOLUME (BEAKER) 6.7 fL 6.5-10.5 (test code = 754) NUCLEATED RED BLOOD CELLS 0 /100 WBC 0-0 (BEAKER) (test code = 413) 0.00CALCIUM, [id number] 11:42:00 Test Item Value Reference Range Interpretation Comments CALCIUM IONIZED (BEAKER) (test 1.02 mmol/L 1.12-1.27 L code = 698) PH, BLOOD (BEAKER) (test code = 7.30 1810) BLOOD GAS, [id number] 11:41:00 Test Item Value Reference Range Interpretation Comments PH ARTERIAL (BEAKER) (test code = 7.30 7.35-7.45 L 383) PCO2 ARTERIAL (BEAKER) (test code 38 mmHg 35-45 = 384) PO2 ARTERIAL (BEAKER) (test code 138 mmHg 80-90 H = 385) O2 SATURATION ARTERIAL (BEAKER) 98.7 % 96.0-97.0 H (test code = 386) HCO3 ARTERIAL (BEAKER) (test code 19 mmol/L 21-29 L = 388) BASE EXCESS ARTERIAL (BEAKER) -7.6 mmol/L -2.0-3.0 L (test code = 387) PATIENT TEMPERATURE (BEAKER) 35.0 C (test code = 1818) FIO2 (BEAKER) (test code = 1819) 50.0 % GLUCOSE-STAT [id number] 11:41:00 Test Item Value Reference Range Interpretation Comments GLUCOSE RANDOM (BEAKER) (test code 127 mg/dL 70-110 H = 652) HEMOGLOBIN-STAT [id number] 11:41:00 Test Item Value Reference Range Interpretation Comments HEMOGLOBIN (BEAKER) (test code = 10.8 g/dL 13.0-16.8 L 410) HEMATOCRIT-STAT [id number] 11:41:00 Test Item Value Reference Range Interpretation Comments HEMATOCRIT (BEAKER) (test code = 411) 32.0 % 40.0-50.0 L SODIUM NA-STAT [id number] 11:40:00 Test Item Value Reference Range Interpretation Comments SODIUM (BEAKER) (test code = 381) 139 meq/L 135-148 POTASSIUM-STAT [id number] 11:40:00 Test Item Value Reference Range Interpretation Comments POTASSIUM (BEAKER) (test code = 3.8 meq/L 3.6-5.5 379) CALCIUM, [id number] 09:40:00 Test Item Value Reference Range Interpretation Comments CALCIUM IONIZED (BEAKER) (test 1.03 mmol/L 1.12-1.27 L code = 698) PH, BLOOD (BEAKER) (test code = 7.29 1810) SODIUM NA-STAT [id number] 09:31:00 Test Item Value Reference Range Interpretation Comments SODIUM (BEAKER) (test code = 381) 139 meq/L 135-148 BLOOD GAS, [id number] 09:31:00 Test Item Value Reference Range Interpretation Comments PH ARTERIAL (BEAKER) (test code = 7.29 7.35-7.45 L 383) PCO2 ARTERIAL (BEAKER) (test code 41 mmHg 35-45 = 384) PO2 ARTERIAL (BEAKER) (test code 333 mmHg 80-90 H = 385) O2 SATURATION ARTERIAL (BEAKER) 99.7 % 96.0-97.0 H (test code = 386) HCO3 ARTERIAL (BEAKER) (test code 19 mmol/L 21-29 L = 388) BASE EXCESS ARTERIAL (BEAKER) -6.9 mmol/L -2.0-3.0 L (test code = 387) PATIENT TEMPERATURE (BEAKER) 37.0 C (test code = 1818) FIO2 (BEAKER) (test code = 1819) 21.0 % GLUCOSE-STAT [id number] 09:31:00 Test Item Value Reference Range Interpretation Comments GLUCOSE RANDOM (BEAKER) (test code 188 mg/dL 70-110 H = 652) POTASSIUM-STAT [id number] 09:31:00 Test Item Value Reference Range Interpretation Comments POTASSIUM (BEAKER) (test code = 2.8 meq/L 3.6-5.5 L 379) HGB/HCT (H&H) - STAT [id number] 09:31:00 Test Item Value Reference Range Interpretation Comments HEMOGLOBIN (BEAKER) (test code = 13.0 g/dL 13.0-16.8 410) HEMATOCRIT (BEAKER) (test code = 38.0 % 40.0-50.0 L 411) [id number] 13:18:00 Test Item Value Reference Range Interpretation Comments SODIUM (BEAKER) (test code = 381) 142 meq/L 136-145 POTASSIUM (BEAKER) (test code = 4.1 meq/L 3.5-5.1 379) CHLORIDE (BEAKER) (test code = 382) 107 meq/L 98-107 CO2 (BEAKER) (test code = 355) 26 meq/L 22-29 BUN AND [id number] 13:04:00 Test Item Value Reference Range Interpretation Comments BLOOD UREA NITROGEN 6 mg/dL 7-21 L (BEAKER) (test code = 354) CREATININE (BEAKER) 0.74 mg/dL 0.57-1.25 (test code = 358) EGFR (BEAKER) (test 105 mL/min/1.73 ESTIM ATED GFR IS code = 1092) sq m NOT ACCURATE CREATININE CLEARANCE IN PREDICTING GLOMERULAR FILTRATION RATE . ESTIMATED GFR I S NOT APPLICABLE FOR DIALYSIS PATIEN TS. [id number] 12:55:00 Test Item Value Reference Range Interpretation Comments HEMOGLOBIN (BEAKER) (test code = 14.9 GM/DL 13.0-16.8 410) PLATELET [id number] 12:55:00 Test Item Value Reference Range Interpretation Comments PLATELET COUNT (BEAKER) (test 269 K/CU MM 150-430 code = 756) CARCINOEMBRYONIC ANTIGEN (CEA)2016-07-01 13:05:00 Test Item Value Reference Range Interpretation Comments CARCINOEMBRYONIC ANTIGEN (BEAKER) 6.7 ng/mL 0.0-5.0 H (test code = 685) BASIC METABOLIC [id number] 05:12:00 Test Item Value Reference Range Interpretation Comments SODIUM (BEAKER) 143 meq/L 136-145 (test code = 381) POTASSIUM (BEAKER) 3.6 meq/L 3.5-5.1 Specimen slightly (test code = 379) hemolyzed CHLORIDE (BEAKER) 115 meq/L 98-107 H (test code = 382) CO2 (BEAKER) (test 19 meq/L 22-29 L code = 355) BLOOD UREA NITROGEN 5 mg/dL 7-21 L (BEAKER) (test code = 354) CREATININE (BEAKER) 0.60 mg/dL 0.57-1.25 Specimen slightly (test code = 358) hemolyzed GLUCOSE RANDOM 89 mg/dL 70-105 (BEAKER) (test code = 652) CALCIUM (BEAKER) 8.1 mg/dL 8.4-10.2 L (test code = 697) EGFR (BEAKER) (test 134 mL/min/1.73 ESTIM ATED GFR IS code = 1092) sq m NOT ACCURATE CREATININE CLEARANCE IN PREDICTING GLOMERULAR FILTRATION RATE . ESTIMATED GFR I S NOT APPLICABLE FOR DIALYSIS PATIEN TS. HEPATIC FUNCTION [id number] 05:12:00 Test Item Value Reference Range Interpretation Comments TOTAL PROTEIN (BEAKER) 5.8 gm/dL 6.0-8.3 L Speci men slightly (test code = 770) hemolyzed ALBUMIN (BEAKER) (test 3.0 g/dL 3.5-5.0 L Speci men slightly code = 1145) hemolyzed BILIRUBIN TOTAL 0.4 mg/dL 0.2-1.2 Specimen sli ghtly (BEAKER) (test code = hemoly zed 377) BILIRUBIN DIRECT 0.2 mg/dL 0.1-0.5 Specimen sl ightly (BEAKER) (test code = hemoly zed 706) ALKALINE PHOSPHATASE 233 U/L 40-150 H (BEAKER) (test code = 346) AST (SGOT) (BEAKER) 52 U/L 5-34 H Specimen slightly (test code = 353) hemolyzed ALT (SGPT) (BEAKER) 33 U/L 6-55 Specimen slightly (test code = 347) hemolyzed CBC W/PLT COUNT & AUTO [id number] 06:06:00 Test Item Value Reference Range Interpretation Comments WHITE BLOOD CELL COUNT (BEAKER) 4.2 K/ L 4.0-10.0 (test code = 775) RED BLOOD CELL COUNT (BEAKER) 4.02 M/ L 4.20-5.80 L (test code = 761) HEMOGLOBIN (BEAKER) (test code = 13.3 GM/DL 13.0-16.8 410) HEMATOCRIT (BEAKER) (test code = 39.1 % 40.0-50.0 L 411) MEAN CORPUSCULAR VOLUME (BEAKER) 97.2 fL 82.0-98.0 (test code = 753) MEAN CORPUSCULAR HEMOGLOBIN 33.0 pg 27.0-33.0 (BEAKER) (test code = 751) MEAN CORPUSCULAR HEMOGLOBIN CONC 34.0 GM/DL 32.0-36.0 (BEAKER) (test code = 752) RED CELL DISTRIBUTION WIDTH 13.9 % 10.3-14.2 (BEAKER) (test code = 412) PLATELET COUNT (BEAKER) (test 215 K/CU MM 150-430 code = 756) MEAN PLATELET VOLUME (BEAKER) 8.0 fL 6.5-10.5 (test code = 754) NUCLEATED RED BLOOD CELLS 0 /100 WBC 0-0 (BEAKER) (test code = 413) NEUTROPHILS RELATIVE PERCENT 48 % (BEAKER) (test code = 429) LYMPHOCYTES RELATIVE PERCENT 41 % (BEAKER) (test code = 430) MONOCYTES RELATIVE PERCENT 9 % (BEAKER) (test code = 431) EOSINOPHILS RELATIVE PERCENT 1 % (BEAKER) (test code = 432) BASOPHILS RELATIVE PERCENT 0 % (BEAKER) (test code = 437) NEUTROPHILS ABSOLUTE COUNT 2.04 K/ L 1.80-8.00 (BEAKER) (test code = 670) LYMPHOCYTES ABSOLUTE COUNT 1.75 K/ L 1.48-4.50 (BEAKER) (test code = 414) MONOCYTES ABSOLUTE COUNT (BEAKER) 0.37 K/ L 0.00-1.30 (test code = 415) EOSINOPHILS ABSOLUTE COUNT 0.05 K/ L 0.00-0.50 (BEAKER) (test code = 416) BASOPHILS ABSOLUTE COUNT (BEAKER) 0.01 K/ L 0.00-0.20 (test code = 417) 0.00HEPATIC FUNCTION [id number] 05:37:00 Test Item Value Reference Range Interpretation Comments TOTAL PROTEIN (BEAKER) (test code = 5.8 gm/dL 6.0-8.3 L 770) ALBUMIN (BEAKER) (test code = 1145) 3.1 g/dL 3.5-5.0 L BILIRUBIN TOTAL (BEAKER) (test code 0.4 mg/dL 0.2-1.2 = 377) BILIRUBIN DIRECT (BEAKER) (test 0.2 mg/dL 0.1-0.5 code = 706) ALKALINE PHOSPHATASE (BEAKER) (test 242 U/L 40-150 H code = 346) AST (SGOT) (BEAKER) (test code = 40 U/L 5-34 H 353) ALT (SGPT) (BEAKER) (test code = 24 U/L 6-55 347) BASIC METABOLIC [id number] 05:37:00 Test Item Value Reference Range Interpretation Comments SODIUM (BEAKER) 145 meq/L 136-145 (test code = 381) POTASSIUM (BEAKER) 3.6 meq/L 3.5-5.1 (test code = 379) CHLORIDE (BEAKER) 117 meq/L 98-107 H (test code = 382) CO2 (BEAKER) (test 18 meq/L 22-29 L code = 355) BLOOD UREA NITROGEN 3 mg/dL 7-21 L (BEAKER) (test code = 354) CREATININE (BEAKER) 0.62 mg/dL 0.57-1.25 (test code = 358) GLUCOSE RANDOM 89 mg/dL 70-105 (BEAKER) (test code = 652) CALCIUM (BEAKER) 8.3 mg/dL 8.4-10.2 L (test code = 697) EGFR (BEAKER) (test 129 mL/min/1.73 ESTIM ATED GFR IS code = 1092) sq m NOT ACCURATE CREATININE CLEARANCE IN PREDICTING GLOMERULAR FILTRATION RATE . ESTIMATED GFR I S NOT APPLICABLE FOR DIALYSIS PATIEN TS. PROTHROMBIN [id number] 05:08:00 Test Item Value Reference Range Interpretation Comments PROTIME (BEAKER) (test code = 14.3 seconds 11.7-14.7 759) INR (BEAKER) (test code = 370) 1.1 <=5.9 RECOMMENDED COUMADIN/WARFARIN INR THERAPY RANGESSTANDARD DOSE: 2.0 - 3.0 Includes: PROPHYLAXIS forvenous thrombosis, systemic embolization; TREATMENT for venous thrombosis and/or pulmonary embolus.HIGH RISK: Target INR is 2.5-3.5 for patients with mechanical heart valves.[id number] 22:22:00 Test Item Value Reference Range Interpretation Comments MAGNESIUM (BEAKER) (test code = 1.9 mg/dL 1.6-2.6 627) BASIC METABOLIC [id number] 22:21:00 Test Item Value Reference Range Interpretation Comments SODIUM (BEAKER) 142 meq/L 136-145 (test code = 381) POTASSIUM (BEAKER) 3.7 meq/L 3.5-5.1 (test code = 379) CHLORIDE (BEAKER) 115 meq/L 98-107 H (test code = 382) CO2 (BEAKER) (test 17 meq/L 22-29 L code = 355) BLOOD UREA NITROGEN 3 mg/dL 7-21 L (BEAKER) (test code = 354) CREATININE (BEAKER) 0.65 mg/dL 0.57-1.25 (test code = 358) GLUCOSE RANDOM 99 mg/dL 70-105 (BEAKER) (test code = 652) CALCIUM (BEAKER) 8.6 mg/dL 8.4-10.2 (test code = 697) EGFR (BEAKER) (test 122 mL/min/1.73 ESTIM ATED GFR IS code = 1092) sq m NOT ACCURATE CREATININE CLEARANCE IN PREDICTING GLOMERULAR FILTRATION RATE . ESTIMATED GFR I S NOT APPLICABLE FOR DIALYSIS PATIEN TS. POCT-GLUCOSE [id number] 12:33:00 Test Item Value Reference Range Interpretation Comments POC-GLUCOSE METER 101 mg/dL 70-110 TESTED AT [facility] 6720 (BEAKER) (test code = [facility] 1538) [address] POCT-GLUCOSE [id number] 08:42:00 Test Item Value Reference Range Interpretation Comments POC-GLUCOSE METER 97 mg/dL 70-110 TESTED AT [facility] 67[address] (BEAKER) (test code = [facility] [address] 1538) [id number] 06:55:00 Test Item Value Reference Range Interpretation Comments FERRITIN (BEAKER) (test code = 361) 129 ng/mL 5-275 Effective 03/20/2014: Reference Range ChangeNew: Male 5-275 Previous: Male 22-322 Female 5-275 Female 10-291IRON, TIBC, % SAT. (WITHOUT FERRITIN)2016-06-28 06:31:00 Test Item Value Reference Range Interpretation Comments IRON (BEAKER) (test code = 547) 54 ug/dL 40-160 TOTAL IRON BINDING CAPACITY 213 ug/dL 250-450 L (BEAKER) (test code = 769) IRON % SATURATION (2) (BEAKER) 25 % 20-55 (test code = 2590) BASIC METABOLIC [id number] 06:11:00 Test Item Value Reference Range Interpretation Comments SODIUM (BEAKER) 138 meq/L 136-145 (test code = 381) POTASSIUM (BEAKER) 3.0 meq/L 3.5-5.1 L (test code = 379) CHLORIDE (BEAKER) 109 meq/L 98-107 H (test code = 382) CO2 (BEAKER) (test 19 meq/L 22-29 L code = 355) BLOOD UREA NITROGEN 5 mg/dL 7-21 L (BEAKER) (test code = 354) CREATININE (BEAKER) 0.65 mg/dL 0.57-1.25 (test code = 358) GLUCOSE RANDOM 113 mg/dL 70-105 H (BEAKER) (test code = 652) CALCIUM (BEAKER) 7.8 mg/dL 8.4-10.2 L (test code = 697) EGFR (BEAKER) (test 122 mL/min/1.73 ESTIM ATED GFR IS code = 1092) sq m NOT ACCURATE CREATININE CLEARANCE IN PREDICTING GLOMERULAR FILTRATION RATE . ESTIMATED GFR I S NOT APPLICABLE FOR DIALYSIS PATIEN TS. HEPATIC FUNCTION [id number] 06:10:00 Test Item Value Reference Range Interpretation Comments TOTAL PROTEIN (BEAKER) (test code = 5.4 gm/dL 6.0-8.3 L 770) ALBUMIN (BEAKER) (test code = 1145) 3.0 g/dL 3.5-5.0 L BILIRUBIN TOTAL (BEAKER) (test code 0.3 mg/dL 0.2-1.2 = 377) BILIRUBIN DIRECT (BEAKER) (test 0.2 mg/dL 0.1-0.5 code = 706) ALKALINE PHOSPHATASE (BEAKER) (test 189 U/L 40-150 H code = 346) AST (SGOT) (BEAKER) (test code = 32 U/L 5-34 353) ALT (SGPT) (BEAKER) (test code = 22 U/L 6-55 347) BASIC METABOLIC [id number] 00:12:00 Test Item Value Reference Range Interpretation Comments SODIUM (BEAKER) 139 meq/L 136-145 (test code = 381) POTASSIUM (BEAKER) 3.1 meq/L 3.5-5.1 L (test code = 379) CHLORIDE (BEAKER) 110 meq/L 98-107 H (test code = 382) CO2 (BEAKER) (test 21 meq/L 22-29 L code = 355) BLOOD UREA NITROGEN 6 mg/dL 7-21 L (BEAKER) (test code = 354) CREATININE (BEAKER) 0.70 mg/dL 0.57-1.25 (test code = 358) GLUCOSE RANDOM 124 mg/dL 70-105 H (BEAKER) (test code = 652) CALCIUM (BEAKER) 8.0 mg/dL 8.4-10.2 L (test code = 697) EGFR (BEAKER) (test 112 mL/min/1.73 ESTIM ATED GFR IS code = 1092) sq m NOT ACCURATE CREATININE CLEARANCE IN PREDICTING GLOMERULAR FILTRATION RATE . ESTIMATED GFR I S NOT APPLICABLE FOR DIALYSIS PATIEN TS. Needed for ADELE CT SCANCBC W/PLT COUNT & AUTO [id number] 23:55:00 Test Item Value Reference Range Interpretation Comments WHITE BLOOD CELL COUNT (BEAKER) 4.4 K/ L 4.0-10.0 (test code = 775) RED BLOOD CELL COUNT (BEAKER) 3.97 M/ L 4.20-5.80 L (test code = 761) HEMOGLOBIN (BEAKER) (test code = 13.6 GM/DL 13.0-16.8 410) HEMATOCRIT (BEAKER) (test code = 38.2 % 40.0-50.0 L 411) MEAN CORPUSCULAR VOLUME (BEAKER) 96.3 fL 82.0-98.0 (test code = 753) MEAN CORPUSCULAR HEMOGLOBIN 34.3 pg 27.0-33.0 H (BEAKER) (test code = 751) MEAN CORPUSCULAR HEMOGLOBIN CONC 35.6 GM/DL 32.0-36.0 (BEAKER) (test code = 752) RED CELL DISTRIBUTION WIDTH 12.7 % 10.3-14.2 (BEAKER) (test code = 412) PLATELET COUNT (BEAKER) (test 165 K/CU MM 150-430 code = 756) MEAN PLATELET VOLUME (BEAKER) 7.5 fL 6.5-10.5 (test code = 754) NUCLEATED RED BLOOD CELLS 0 /100 WBC 0-0 (BEAKER) (test code = 413) NEUTROPHILS RELATIVE PERCENT 58 % (BEAKER) (test code = 429) LYMPHOCYTES RELATIVE PERCENT 34 % (BEAKER) (test code = 430) MONOCYTES RELATIVE PERCENT 7 % (BEAKER) (test code = 431) EOSINOPHILS RELATIVE PERCENT 1 % (BEAKER) (test code = 432) BASOPHILS RELATIVE PERCENT 0 % (BEAKER) (test code = 437) NEUTROPHILS ABSOLUTE COUNT 2.54 K/ L 1.80-8.00 (BEAKER) (test code = 670) LYMPHOCYTES ABSOLUTE COUNT 1.47 K/ L 1.48-4.50 L (BEAKER) (test code = 414) MONOCYTES ABSOLUTE COUNT (BEAKER) 0.32 K/ L 0.00-1.30 (test code = 415) EOSINOPHILS ABSOLUTE COUNT 0.03 K/ L 0.00-0.50 (BEAKER) (test code = 416) BASOPHILS ABSOLUTE COUNT (BEAKER) 0.00 K/ L 0.00-0.20 (test code = 417) 0.00
--- NOTE | 2021-10-06 11:07 | RAD REPORT ---
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 The bones are diffusely demineralized. There is a moderate size acromial spur present.
--- NOTE | 2021-10-06 11:08 | RAD REPORT ---
EXAM DESCRIPTION: RAD - Knee Left 3 View - 10/06/2021 10:55 am CLINICAL HISTORY: PAIN COMPARISON: No comparisons FINDINGS: Mild arthritic changes are present. No acute fracture or dislocation is seen. No significa nt joint fluid.
--- NOTE | 2021-10-06 12:22 | EDPHYS ---
Physician Documentation [facility] Name: Xiang Ocampo Age: 76 yrs Sex: Male : 1945 Arrival Date: 10/06/2021 Time: 09:55 Bed DIS1 Private MD: ED Physician Geraldo Flor HPI: 10/06 10:20 This 76 yrs old Male presents to ER via Ambulatory with complaints of Shoulder cp Pain, Knee Pain. 10:20 The patient or guardian complains of decreased range of motion, pain, that is acute. cp left shoulder. Onset: The symptoms/episode began/occurred 2 day(s) ago. The patient presents with pain, that is acute. The complaints affect the left knee. Onset: The symptoms/episode began/occurred 2 day(s) ago. 10:20 Patient denies injury to left shoulder and/or left knee. 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 cp 10:25 Cardiovascular: Negative for chest pain, edema, palpitations. 10:25 Eyes: Negative for injury, pain, redness, and discharge. cp 10:25 ENT: Negative for drainage from ear(s), ear pain, sore throat, difficulty swallowing, difficulty handling secretions. 10:25 Neck: Negative for pain with movement, pain at rest, stiffness. 10:25 Respiratory: Negative for cough, shortness of breath, wheezing. 10:25 Abdomen/GI: Negative for abdominal pain, nausea, vomiting, and diarrhea. 10:25 Back: Negative for pain at rest, pain with movement. 10:25 MS/extremity: Positive for pain, of the left knee and left shoulder, Negative for injury or acute deformity, decreased range of motion, paresthesias. 10:25 Skin: Negative for cellulitis, rash. 10:25 Neuro: Negative for altered mental status, headache, weakness. 10:25 All other systems are negative. Exam: 10:30 Constitutional: The patient appears in no acute distress, alert, awake, cp non-diaphoretic, non-toxic, well developed, well nourished. 10:30 Head/Face: Normocephalic, atraumatic. cp 10:30 Eyes: Periorbital structures: appear normal, Conjunctiva: normal, no exudate, no injection, Sclera: no appreciated abnormality, Lids and lashes: appear normal, bilaterally. 10:30 ENT: External ear(s): are unremarkable, Nose: is normal, Posterior pharynx: Airway: no evidence of obstruction, patent. 10:30 Neck: ROM/movement: is normal, is supple, without pain, no range of motions limitations. 10:30 Chest/axilla: Inspection: normal, Palpation: is normal, no crepitus, no tenderness. 10:30 Cardiovascular: Rate: normal, Rhythm: regular, Pulses: Pulses are 2+ in left radial artery. Heart sounds: murmur, not appreciated, Edema: is not appreciated, JVD: is not appreciated. 10:30 Respiratory: the patient does not display signs of respiratory distress, Respirations: normal, no use of accessory muscles, no retractions, labored breathing, is not present, Breath sounds: are clear throughout, no decreased breath sounds, no stridor, no wheezing. 10:30 Abdomen/GI: Inspection: abdomen appears normal, Palpation: abdomen is soft and non-tender, in all quadrants. 10:30 Back: pain, is absent, ROM is normal, vertebral tenderness, is not appreciated. 10:30 Musculoskeletal/extremity: ROM: limited passive range of motion, in the left shoulder, limited passive range of motion due to pain, in the left shoulder and left knee, Joints: the left shoulder displays limited range of motion, pain at rest, painful range of motion, tenderness, the left knee displays pain at rest, painful range of motion, tenderness, Weight bearing: able to fully bear weight. 10:30 Skin: cellulitis, is not appreciated, no rash present. 10:30 Neuro: Orientation: to person, place \T\ time. Mentation: is normal. Vital Signs: 10:17 Pulse 99; Resp 16; Temp 98.5; Pulse Ox 100% on R/A; iw 10:19 BP 145 / 100; iw MDM: 12:00 Patient medically screened. cp 12:20 Data reviewed: vital signs, nurses notes, radiologic studies, plain films. cp 12:20 Test interpretation: by ED physician or midlevel provider: plain radiologic studies. cp Counseling: I had a detailed discussion with the patient and/or guardian regarding: the historical points, exam findings, and any diagnostic results supporting the discharge/admit diagnosis, radiology results, the need for outpatient follow up, for definitive care, a orthopedic surgeon, to return to the emergency department if symptoms worsen or persist or if there are any questions or concerns that arise at home. 10/06 10:20 Order name: XRAY Shoulder LEFT 2 view: pain times 2 days cp 10/06 10:20 Order name: XRAY Knee LEFT 3 view: pain times 2 days cp 10/06 12:14 Order name: Sling; Complete Time: 12:36 cp Administered Medications: 12:29 Drug: Ibuprofen 800 mg Route: PO; iw 12:45 Follow up: Response: No adverse reaction iw 12:29 Drug: Tylenol 1000 mg Route: PO; iw 12:45 Follow up: Response: No adverse reaction iw Disposition: 15:01 Co-signature as Attending Physician, Geraldo Flor MD. rn Disposition Summary: 10/06/21 12:21 Discharge Ordered Location: Home cp Problem: new cp Symptoms: have improved cp Condition: Stable cp Diagnosis - Pain in left shoulder cp - Pain in left knee cp Followup: cp - With: Phan Hendrickson MD - When: 1 week - Reason: Recheck today's complaints Discharge Instructions: - Discharge Summary Sheet cp - Elastic Bandage and RICE Therapy cp - Shoulder Pain cp - Acute Knee Pain, Adult cp - Shoulder Range of Motion Exercises cp Forms: - Medication Reconciliation Form cp - Thank You Letter cp - Antibiotic Education cp - Prescription Opioid Use cp Prescriptions: - Diclofenac Sodium 75 mg Oral tablet,delayed release (DR/EC) - take 1 tablet by ORAL route 2 times per day; 20 tablet; Refills: 0, Product cp Selection Permitted Signatures: Dispatcher [employer] Tami Naik RN RN iw Nieto, Roman, MD MD rn Page, Corey, PA PA cp
--- NOTE | 2021-10-06 12:22 | ER ---
Nurse's Notes [facility] Name: Xiang Ocampo Age: 76 yrs Sex: Male : 1945 Arrival Date: 10/06/2021 Time: 09:55 Bed DIS1 Private MD: Diagnosis: Pain in left shoulder;Pain in left knee Presentation: 10/06 10:17 Chief complaint: Patient states: left shoulder pain and left knee pain X 2 days, denies iw injury or falling. Coronavirus screen: At this time, the client does not indicate any symptoms associated with coronavirus-19. Ebola Screen: Patient negative for fever greater than or equal to 101.5 degrees Fahrenheit, and additional compatible Ebola Virus Disease symptoms Patient denies exposure to infectious person. Patient denies travel to an Ebola-affected area in the 21 days before illness onset. No symptoms or risks identified at this time. Initial Sepsis Screen: Does the patient meet any 2 criteria? No. Patient's initial sepsis screen is negative. Does the patient have a suspected source of infection? No. Patient's initial sepsis screen is negative. Risk Assessment: Do you want to hurt yourself or someone else? Patient reports no desire to harm self or others. Onset of symptoms was October 04, 2021. 10:17 Method Of Arrival: Ambulatory iw 10:17 Acuity: MIKE 4 iw Historical: - Allergies: 10:19 No Known Allergies; iw - PMHx: 10:19 bells palsey; Cancer; Diverticulitis; Hypertension; iw Vital Signs: 10:17 Pulse 99; Resp 16; Temp 98.5; Pulse Ox 100% on R/A; iw 10:19 BP 145 / 100; iw ED Course: 09:55 Patient arrived in ED. am2 10:19 Triage completed. iw 10:19 Jonel Godinez PA is PHCP. cp 10:19 Geraldo Flor MD is Attending Physician. cp 10:19 Arm band placed on. iw 10:57 XRAY Shoulder LEFT 2 view: pain times 2 days In Process Unspecified. EDMS 10:57 XRAY Knee LEFT 3 view: pain times 2 days In Process Unspecified. EDMS 11:57 Tami Campos, FELIBERTO is Primary Nurse. iw 12:20 Phan Hendrickson MD is Referral Physician. cp Administered Medications: 12:29 Drug: Ibuprofen 800 mg Route: PO; iw 12:45 Follow up: Response: No adverse reaction iw 12:29 Drug: Tylenol 1000 mg Route: PO; iw 12:45 Follow up: Response: No adverse reaction iw Outcome: 12:21 Discharge ordered by MD. guidry 12:46 Patient left the ED. iw Signatures: Dispatcher [employer] Tami Naik RN RN Jonel Godinez PA PA cp Moreno, Amanda [facility]
[2021-10-06] MEDS ORDERED: ACETAMINOPHEN 500 MG TAB ONE (12:32)
[2021-10-06] MEDS ORDERED: IBUPROFEN 400 MG TAB ONE (12:32)
[2021-10-06 12:50] VITALS: TEMP 98.5; O2SAT 100
[2021-10-06 12:51] VITALS: BP 145/100
== END 2021-10-06 12:46 | disposition home or self-care (01) ==
LOC: ER 09:55
DX: M25.512 Pain in left shoulder (principal); M25.562 Pain in left knee; I10 Essential (primary) hypertension
CPT/HCPCS: 99283

== ENCOUNTER 2023-08-28 18:14 | Emergency (ER) | payer OTHER ==
[2023-08-28] MEDS ORDERED: NA CHLORIDE 0.9% 1,000 ML ONE (18:30)
[2023-08-28] MEDS ORDERED: ONDANSETRON 4 MG/2 ML VIAL ONE (18:30)
[2023-08-28] MEDS ORDERED: MORPHINE 4 MG/ML SYR ONE (18:30)
[2023-08-28 18:50] LABS: Absolute Eosinophils 0.1 K/uL (0-0.5); Absolute Lymphocytes (CBC) 1.7 K/uL (0.7-4.9); Absolute Monocytes 0.4 K/uL (0.1-1.3); Absolute Neutrophil 4.1 K/uL (1.8-8.0); Basophils % 0.7 % (0-1.3); Eosinophils % 0.9 % (0-4.4); Hematocrit 44.6 % (39.6-49.0); Hemoglobin 15.7 g/dL (13.6-17.9); Lymphocytes % 27.3 % (15.3-44.8); MCH 35.6 pg (27.0-35.0); MCHC 35.1 g/dL (32.0-36.0); MCV 101.3 fL (80-100); MPV 7.7 fL (7.6-11.3); Neutrophils % 65.1 % (41.7-73.7); Nucleated Red Blood Cells % 0.1 % (0-0); Platelets 181 thou/uL (152-406); Red Cell Distribution Width 13.5 % (12.1-15.2)
[2023-08-28 19:07] LABS: Albumin 3.6 g/dL (3.4-5.0); Albumin/Globulin Ratio 0.9 (1.1-1.8); Anion Gap 9.4 mEq/L (5.0-15.0); Bilirubin Total 0.5 mg/dL (0.2-1.0); Globulin 3.8 g/dL (2.3-3.5); Potassium 3.4 mEq/L (3.5-5.1); Protein, Total 7.4 g/dL (6.4-8.2)
--- NOTE | 2023-08-28 19:47 | RAD REPORT ---
EXAM DESCRIPTION: CTAbdomen Pelvis W Contrast - 08/28/2023 7:36 pm CLINICAL HISTORY: Abdominal pain. ABD PAIN COMPARISON: Abdomen Pelvis W Contrast dated 06/06/2018; Abdomen Pelvis W Contrast dated 01/03/2018; Abdomen Pelvis W Contrast dated 06/26/2016 TECHNIQUE: Biphasic CT imaging of the abdomen and pelvis was performed with 100 ml non-ionic IV cont rast. All CT scans are performed using dose optimization technique as appropriate and may include automated exposure control or mA/KV adjustment according to patient size. FINDINGS: The lung bases are clear. The liver, spleen, pancreas, adrenal glands and left kidney are within normal limits. 5 mm stone is p resent at the right UVJ resulting in mild right hydronephrosis and hydroureter. No bowel obstruction, free air, free fluid or abscess. Nonvisualized appendix. No evidence of signi ficant lymphadenopathy. No suspicious bony findings. IMPRESSION: 5 mm stone right UVJ resulting in mild right hydronephrosis.
[2023-08-28] MEDS ORDERED: TAMSULOSIN 0.4 MG SR CAP ONE (20:02)
[2023-08-28] MEDS ORDERED: MAGNESIUM SULFATE 1 gm IVPB 1 GM/100 ML BAG IV ONE (20:03)
[2023-08-28 21:39] LABS: Specific Gravity 1.025 (1.005-1.030); Sqamous Epithelial None Seen /HPF (None Seen); Urine Bacteria None Seen /HPF (<20); Urine Bilirubin NEGATIVE (Negative); Urine Blood 2+ (Negative); Urine Clarity Clear (Clear); Urine Color Light-Yellow (Yellow); Urine Culture Reflex Order NOT NEEDED; Urine Glucose NEGATIVE (Negative); Urine Ketones NEGATIVE (Negative); Urine Microscopic Reflex YN ORDER UMIC; Urine Mucus Slight /HPF (None Seen); Urine Nitrite NEGATIVE (Negative); Urine Protein NEGATIVE (Negative); Urine Urobilinogen Normal (Normal); Urine WBC <5 /HPF (<5); Urine pH 5.5 (5.0-7.0)
--- NOTE | 2023-08-28 21:51 | ER ---
Nurse's Notes [facility] Name: Xiang Ocampo Age: 77 yrs Sex: Male : 1945 Arrival Date: 08/28/2023 Time: 18:14 Bed 19 Private MD: Diagnosis: Calculus of ureter Presentation: 08/27 18:20 Chief complaint: Patient's son or daughter states: Right sided abdominal pain, sudden nj1 onset about an hour ago. No nausea, vomiting or diarrhea. Had a colon resection a few years back. 18:20 Coronavirus screen: Vaccine status: Patient reports being unvaccinated. Ebola Screen: nj1 Patient denies travel to an Ebola-affected area in the 21 days before illness onset. Initial Sepsis Screen: Does the patient meet any 2 criteria? No. Patient's initial sepsis screen is negative. Does the patient have a suspected source of infection? No. Patient's initial sepsis screen is negative. Risk Assessment: Do you want to hurt yourself or someone else? Patient reports no desire to harm self or others. Onset of symptoms was August 28, 2023 at 17:30. 18:20 Method Of Arrival: Wheelchair nj 18:20 Acuity: MIKE 3 nj1 Historical: - Allergies: 18:30 No Known Allergies; nj1 - PMHx: 18:30 bells palsey; Cancer; Diverticulitis; Hypertension; nj1 - PSHx: 18:30 Colectomy; partial; nj1 - Immunization history:: Client reports having NOT received the Covid vaccine. - Infectious Disease History:: Denies. - Social history:: Smoking status: Patient reports the use of cigarette tobacco products, smokes one-half pack cigarettes per day. Screenin:43 [facility] ED Fall Risk Assessment (Adult) History of falling in the last 3 months, kc6 including since admission No falls in past 3 months (0 pts) Confusion or Disorientation No (0 pts) Intoxicated or Sedated No (0 pts) Impaired Gait Yes (1 pt) Mobility Assist Device Used Yes (1 pt) Altered Elimination No (0 pt) Score/Fall Risk Level 0 - 2 = Low Risk. Abuse screen: Denies threats or abuse. Denies injuries from another. Nutritional screening: No deficits noted. Tuberculosis screening: No symptoms or risk factors identified. Assessment: 18:43 General: Appears in no apparent distress. uncomfortable, well groomed, well developed, kc6 Behavior is calm, cooperative, appropriate for age, quiet. Pain: Complains of pain in right lower quadrant. Neuro: Level of Consciousness is awake, alert, obeys commands, Oriented to person, place, time, situation, Appropriate for age. Cardiovascular: Capillary refill < 3 seconds. Respiratory: Reports cough that is productive, Airway is patent Trachea midline Respiratory effort is even, unlabored, Respiratory pattern is regular, symmetrical, Breath sounds with crackles bilaterally. GI: Abdomen is flat, non-distended, Bowel sounds present X 4 quads. Abd is soft X 4 quads Abdomen is tender to palpation in right lower quadrant Reports lower abdominal pain, Patient currently denies diarrhea, nausea, vomiting. : No signs and/or symptoms were reported regarding the genitourinary system. EENT: No signs and/or symptoms were reported regarding the EENT system. Derm: No signs and/or symptoms reported regarding the dermatologic system. Skin is intact, is healthy with good turgor, Skin is pink, warm \T\ dry. Musculoskeletal: No signs and/or symptoms reported regarding the musculoskeletal system. Circulation, motion, and sensation intact. Capillary refill < 3 seconds, Range of motion: intact in all extremities. 19:10 General: Appears in no apparent distress. uncomfortable, Behavior is calm, cooperative. jw7 Pain: Complains of pain in right lower quadrant Pain does not radiate. Pain began suddenly, Is continuous. Neuro: Level of Consciousness is awake, alert, obeys commands, Oriented to person, place, time, situation. Cardiovascular: Heart tones S1 S2 present Capillary refill < 3 seconds Clubbing of nail beds is absent JVD is absent Patient's skin is warm and dry. Respiratory: Reports cough that is productive, Airway is patent Trachea midline Respiratory effort is even, unlabored, Respiratory pattern is regular, symmetrical, Breath sounds with crackles bilaterally. GI: Abdomen is flat, non-distended, Bowel sounds present X 4 quads. Abd is soft X 4 quads Abdomen is tender to palpation in right lower quadrant Reports lower abdominal pain, Patient currently denies diarrhea, nausea. : No deficits noted. No signs and/or symptoms were reported regarding the genitourinary system. EENT: No deficits noted. No signs and/or symptoms were reported regarding the EENT system. Derm: No signs and/or symptoms reported regarding the dermatologic system. Skin is intact, is healthy with good turgor, Skin is dry, Skin is normal, Skin temperature is warm. Musculoskeletal: No signs and/or symptoms reported regarding the musculoskeletal system. Circulation, motion, and sensation intact. Range of motion: intact in all extremities. 20:17 Reassessment: Patient appears in no apparent distress at this time. No changes from 7 previously documented assessment. Patient and/or family updated on plan of care and expected duration. Pain level reassessed. Patient is alert, oriented x 3, equal unlabored respirations, skin warm/dry/pink. 21:00 Reassessment: Patient appears in no apparent distress at this time. Patient and/or jw7 family updated on plan of care and expected duration. Pain level reassessed. Patient is alert, oriented x 3, equal unlabored respirations, skin warm/dry/pink. Patient states feeling better. Patient states symptoms have improved. 22:00 Reassessment: Patient appears in no apparent distress at this time. No changes from 7 previously documented assessment. Patient and/or family updated on plan of care and expected duration. Pain level reassessed. Patient is alert, oriented x 3, equal unlabored respirations, skin warm/dry/pink. Vital Signs: 18:20 BP 167 / 80; Pulse 81; Resp 18; Temp 97.9(O); Pulse Ox 99% on R/A; Weight 68.04 kg (R); nj1 Height 5 ft. 6 in. ; 18:44 BP 139 / 87; Pulse 74; Resp 18 S; Pulse Ox 95% on R/A; kc6 19:00 BP 144 / 80; Pulse 68; Resp 17 S; Pulse Ox 95% on R/A; jw7 20:17 BP 145 / 75; Pulse 68; Resp 17 S; Pulse Ox 96% on R/A; jw7 21:30 BP 146 / 87; Pulse 69; Resp 16 S; Pulse Ox 98% on R/A; jw7 22:00 BP 139 / 72; Pulse 67; Resp 16 S; Pulse Ox 98% on R/A; jw7 18:20 Body Mass Index 24.21 (68.04 kg, 167.64 cm) [facility] ED Course: 18:18 Patient arrived in ED. mg5 18:18 Vesna Kerns FNP-C is [facility]. kb 18:18 Geraldo Flor MD is Attending Physician. kb 18:27 Shaista Angel, FELIBERTO is Primary Nurse. kc6 18:30 Triage completed. nj1 18:31 Arm band placed on. nj1 18:43 Patient has correct armband on for positive identification. Bed in low position. Call kc6 light in reach. Side rails up X 1. Adult w/ patient. Client placed on continuous cardiac and pulse oximetry monitoring. NIBP monitoring applied. Door closed. Noise minimized. Lights dimmed. Warm blanket given. 18:43 Inserted saline lock: 20 gauge in right antecubital area, using aseptic technique. kc6 Blood collected. 19:03 Report given to Dolores Aceves RN. kc6 19:15 Provided Education on: Use of Call Light. jw7 19:38 CT Abd/Pelvis - IV Contrast Only In Process Unspecified. EDMS 21:40 No provider procedures requiring assistance completed. jw7 21:52 Amor Chang MD is Referral Physician. kb 22:25 IV discontinued, intact, bleeding controlled, No redness/swelling at site. Pressure jw7 dressing applied. Administered Medications: 18:42 Drug: NS 0.9% IV 1000 ml IV at 1 bolus Per protocol; 1000 mL bolus Route: IV; Rate: 1 kc6 bolus; Site: right antecubital; 19:30 Follow up: Response: No adverse reaction; IV Status: Completed infusion; IV Intake: jw7 1000ml 18:42 Drug: Ondansetron IVP 4 mg IVP once; over 2 minutes Route: IVP; Site: right antecubital;kc6 19:02 Follow up: Response: No adverse reaction kc6 18:42 Drug: morphine IVP or IV 4 mg IVP once over 4 mins Route: IVP; Infused Over: 4 mins; kc6 Site: right antecubital; 19:02 Follow up: Response: No adverse reaction; Pain is decreased; RASS: Alert and Calm (0) kc6 20:12 Drug: Magnesium Sulfate IVPB 1 grams IVPB once over 1 hrs Route: IVPB; Infused Over: 1 jw7 hrs; Site: right antecubital; 21:15 Follow up: Response: No adverse reaction; IV Status: Completed infusion; IV Intake: jw7 100ml 20:12 Drug: Flomax PO 0.4 mg PO once Route: PO; jw7 22:22 Follow up: Response: No adverse reaction jw7 Medication: 21:40 VIS not applicable for this client. jw7 Intake: 19:30 IV: 1000ml; Total: 1000ml. jw7 21:15 IV: 100ml; Total: 1100ml. jw7 Outcome: 21:51 Discharge ordered by MD. villafana 22:24 Discharged to home via wheelchair, with family, jw7 22:24 Condition: stable 22:24 Discharge instructions given to patient, family, Instructed on discharge instructions, follow up and referral plans. medication usage, Demonstrated understanding of instructions, follow-up care, medications, Prescriptions given X 3, 22:25 Patient left the ED. jw7 Signatures: Dispatcher [employer] EDMS Vesna Kerns FNP-C FNP-Dolores Rubio RN RN jw7 Shaista Angel RN RN kc6 Crystal Wong RN RN nj1 Kasey Washington mg5 Corrections: (The following items were deleted from the chart) :22 20:15 Response: No adverse reaction; IV Status: Completed infusion; IV Intake: 100ml [id number]
--- NOTE | 2023-08-28 21:52 | EDPHYS ---
Physician Documentation [facility] Name: Xiang Ocampo Age: 77 yrs Sex: Male : 1945 Arrival Date: 08/28/2023 Time: 18:14 Bed 19 Private MD: ED Physician Geraldo Flor HPI: 08/27 21:00 This 77 yrs old Male presents to ER via Wheelchair with complaints of Leg kb Pain, Abdominal Pain. 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 Denies n/v/d/f, urinary symptoms. Concerned because he had a colon resection about 4-5 years ago due to cancer and he hasn't seen a dr since then. . Historical: - Allergies: 18:30 No Known Allergies; nj1 - PMHx: 18:30 bells palsey; Cancer; Diverticulitis; Hypertension; nj1 - PSHx: 18:30 Colectomy; partial; nj1 - Immunization history:: Client reports having NOT received the Covid vaccine. - Infectious Disease History:: Denies. - Social history:: Smoking status: Patient reports the use of cigarette tobacco products, smokes one-half pack cigarettes per day. ROS: 21:00 Constitutional: As per HPI kb Exam: 21:00 Constitutional: This is a well developed, well nourished patient who is awake, alert, kb and in no acute distress. Head/Face: Normocephalic, atraumatic. ENT: Moist Mucous membranes Cardiovascular: Regular rate Respiratory: Respirations even and unlabored. No increased work of breathing. Talking in full sentences Skin: Warm, dry with normal turgor. Normal color. MS/ Extremity: Pulses equal, no cyanosis. Neurovascular intact. Full, normal range of motion. Neuro: Awake and alert, GCS 15, oriented to person, place, time, and situation. Moves all extremities. Normal gait. 21:00 Abdomen/GI: Inspection: abdomen appears normal, Bowel sounds: normal, Palpation: soft, in all quadrants, moderate abdominal tenderness, in the right lower quadrant, Vital Signs: 18:20 BP 167 / 80; Pulse 81; Resp 18; Temp 97.9(O); Pulse Ox 99% on R/A; Weight 68.04 kg (R); nj1 Height 5 ft. 6 in. ; 18:44 BP 139 / 87; Pulse 74; Resp 18 S; Pulse Ox 95% on R/A; kc6 19:00 BP 144 / 80; Pulse 68; Resp 17 S; Pulse Ox 95% on R/A; jw7 20:17 BP 145 / 75; Pulse 68; Resp 17 S; Pulse Ox 96% on R/A; jw7 21:30 BP 146 / 87; Pulse 69; Resp 16 S; Pulse Ox 98% on R/A; jw7 22:00 BP 139 / 72; Pulse 67; Resp 16 S; Pulse Ox 98% on R/A; jw7 18:20 Body Mass Index 24.21 (68.04 kg, 167.64 cm) nj1 MDM: 18:18 Patient medically screened. kb 21:01 Differential diagnosis: appendicitis, diverticulitis, non-specific abd pain, kb Ureterolithiasis, urinary tract infection. Data reviewed: vital signs, nurses notes. Historians other than the Patient: Daughter/Son: son. Counseling: I had a detailed discussion with the patient and/or guardian regarding the historical points, exam findings, and any diagnostic results supporting the discharge/admit diagnosis, lab results, radiology results, the need for outpatient follow up, a urologist, to return to the emergency department if symptoms worsen or persist or if there are any questions or concerns that arise at home. 08/27 18:27 Order name: CBC with Diff; Complete Time: 19:04 kb 08/27 18:27 Order name: CMP; Complete Time: 19:10 kb 08/27 18:27 Order name: Lipase; Complete Time: 19:10 kb 08/27 18:27 Order name: Urinalysis w/ reflexes; Complete Time: 21:46 kb 08/27 18:27 Order name: CT Abd/Pelvis - IV Contrast Only; Complete Time: 19:51 kb 08/27 18: Order name: IV Saline Lock; Complete Time: 18:42 kb 08/27 18: Order name: Labs collected and sent; Complete Time: 18:42 kb Administered Medications: 18:42 Drug: NS 0.9% IV 1000 ml IV at 1 bolus Per protocol; 1000 mL bolus Route: IV; Rate: 1 kc6 bolus; Site: right antecubital; 19:30 Follow up: Response: No adverse reaction; IV Status: Completed infusion; IV Intake: jw7 1000ml 18:42 Drug: Ondansetron IVP 4 mg IVP once; over 2 minutes Route: IVP; Site: right antecubital;kc6 19:02 Follow up: Response: No adverse reaction 6 18:42 Drug: morphine IVP or IV 4 mg IVP once over 4 mins Route: IVP; Infused Over: 4 mins; kc6 Site: right antecubital; 19:02 Follow up: Response: No adverse reaction; Pain is decreased; RASS: Alert and Calm (0) 6 20:12 Drug: Magnesium Sulfate IVPB 1 grams IVPB once over 1 hrs Route: IVPB; Infused Over: 1 jw7 hrs; Site: right antecubital; 21:15 Follow up: Response: No adverse reaction; IV Status: Completed infusion; IV Intake: jw7 100ml 20:12 Drug: Flomax PO 0.4 mg PO once Route: PO; jw7 22:22 Follow up: Response: No adverse reaction jw7 Disposition Summary: 08/28/23 21:51 Discharge Ordered Notes: Location: Home kb Condition: Stable kb Diagnosis - Calculus of ureter kb Followup: kb - With: Emergency Department - When: As needed - Reason: Worsening of condition Followup: kb - With: Private Physician - When: 2 - 3 days - Reason: Recheck today's complaints, Continuance of care, Re-evaluation by your physician Followup: kb - With: Amor Chang MD - When: 2 - 3 days - Reason: Recheck today's complaints Discharge Instructions: - Discharge Summary Sheet kb - Kidney Stones, [id number] kb - Dietary Guidelines to Help Prevent Kidney Stones kb Forms: - Medication Reconciliation Form kb - Antibiotic Education kb - Prescription Opioid Use kb - Patient Portal Instructions kb - Leadership Thank You Letter kb Prescriptions: - Flomax 0.4 mg Oral capsule - take 1 capsule ORAL route daily; 10 capsule; Refills: 0, Product Selection kb Permitted - Zofran 4 mg Oral tablet - take 1 tablet ORAL route every 6 hours As needed; 12 tablet; Refills: 0, kb Product Selection Permitted - Diclofenac Sodium 75 mg Oral tablet, delayed release (enteric coated) - take 1 tablet ORAL route 2 times per day As needed; 30 tablet; Refills: 0, kb Product Selection Permitted Addendum: 08/30/2023 07:18 Co-signature as Attending Physician, Geraldo Flor MD I reviewed the patient's care r n provided by the Advanced Practice Provider and agree with the diagnosis and treatment plan. Signatures: Dispatcher [employer] EDVesna Gross, COMMERCIAL LOAN ADMINISTRATOR-C COMMERCIAL LOAN ADMINISTRATOR-Ckb Geraldo Flor MD MD rn Dolores Aceves, RN RN jw7 Shaista Angel RN RN kc6 Crystal Wong RN RN nj1 Corrections: (The following items were deleted from the chart) 08/27 18:28 18:28 CBC+H.LAB.BRZ ordered. EDMS EDMS 18:28 18:28 COMPREHENSIVE METABOLIC PANEL+C.LAB.BRZ ordered. EDMS EDMS 18:28 18:28 LIPASE+C.LAB.BRZ ordered. EDMS EDMS 18:28 18:28 Urinalysis+U.LAB.BRZ ordered. EDMS EDMS 18:28 18:28 Abdomen Pelvis W Con+CT.RAD.BRZ ordered. EDMS EDMS
[2023-08-28 22:50] VITALS: BP 139/72; TEMP 97.9; O2SAT 98
== END 2023-08-28 22:25 | disposition home or self-care (01) ==
LOC: ER 18:14
DX: N20.1 Calculus of ureter (principal); F17.210 Nicotine dependence, cigarettes, uncomplicated; Z85.038 Personal history of other malignant neoplasm of large intestine
CPT/HCPCS: 85025; 81001; 36415; 83690; 80053; 74177; Q9967; J3475; J2405; J7030